=== PATIENT | female | born 1945 | race Caucasian/White ===

== ENCOUNTER → 2018-08-28 | Outpatient (CLI) | payer MEDICARE ==
--- NOTE | 2018-09-01 10:33 | MM ---
Reason for exam: screening (asymptomatic). Last mammogram was performed 1 year ago. History: Patient is postmenopausal and history of other cancer. Physical Findings: A clinical breast exam by your physician is recommended on an annual basis and results should be correlated with mammographic findings. MG 3D Screening Mammo W/Cad Bilateral CC and MLO view(s) were taken. Prior study comparison: August 20, 2017, bilateral MG 3d screening mammo w/cad. August 06, 2016, bilateral MG 3d screening mammo w/cad. There are scattered fibroglandular densities. No significant changes when compared with prior studies. ASSESSMENT: Benign, BI-RAD 2 RECOMMENDATION: Routine screening mammogram of both breasts in 1 year.
== END | disposition home or self-care (01) ==
LOC: RADMAMWWP 13:35
PROVIDERS: ATTEND Family Medicine
DX: Z12.31 Encounter for screening mammogram for malignant neoplasm of breast (principal)
CPT/HCPCS: 77063; 77067

== ENCOUNTER → 2019-09-07 | Outpatient (CLI) | payer MEDICARE ==
--- NOTE | 2019-09-08 04:25 | BD ---
EXAMINATION TYPE: Axial Bone Density DATE OF EXAM: 09/07/2019 COMPARISON: NONE CLINICAL HISTORY: 74-year-old female screening for osteoporosis Height: 61.5 IN Weight: 147 LBS RISK FACTORS HISTORY OF: Active: YES Diet low in dairy products/other sources of calcium: YES Postmenopausal woman: AGE 54 MEDICATIONS: Thyroid Medications: YES Which medication: LEVOTHYROXINE How Lon+ YEARS Additional Medications: BLOOD PRESSURE MEDS, STATIN,LEVOTHYROXINE, EXAM MEASUREMENTS: Bone mineral densitometry was performed using the [employer] System. Bone mineral density as measured about the Lumbar spine is: ----- L1-L4(G/cm2): 1.040 T Score Values are as follows: ----- L2: -1.4 ----- L3: -1.2 ----- L4: -1.3 ----- L1-L4: -1.2 Bone mineral density BASELINE Bone mineral density about the R hip (g/cm2): 0.869 Bone mineral density about the L hip (g/cm2): 0.826 T Score values are as follows: -----R Neck: -1.2 -----L Neck: -1.5 -----R Total: -1.1 -----L Total: -0.6 Bone mineral density BASELINE IMPRESSION: Osteopenia (T Score between -2.5 and -1). There is slightly increased risk of fracture and the patient may be considered for treatment. Re-Screen 2-5 years. NOTE: T-SCORE=SD OF THE YOUNG ADULT MEAN.
--- NOTE | 2019-09-08 11:19 | MM ---
Reason for exam: screening (asymptomatic). Last mammogram was performed 1 year ago. History: Patient is postmenopausal and history of other cancer. Physical Findings: A clinical breast exam by your physician is recommended on an annual basis and results should be correlated with mammographic findings. MG 3D Screening Mammo W/Cad Bilateral CC and MLO view(s) were taken. Prior study comparison: August 28, 2018, bilateral MG 3d screening mammo w/cad. August 20, 2017, bilateral MG 3d screening mammo w/cad. There are scattered fibroglandular densities. There is no discrete abnormality. No significant changes when compared with prior studies. ASSESSMENT: Negative, BI-RAD 1 RECOMMENDATION: Routine screening mammogram of both breasts in 1 year.
== END | disposition home or self-care (01) ==
LOC: RADMAMWWP 13:55
PROVIDERS: ATTEND Family Medicine
DX: Z12.31 Encounter for screening mammogram for malignant neoplasm of breast (principal); Z13.820 Encounter for screening for osteoporosis; M85.80 Other specified disorders of bone density and structure, unspecified site
CPT/HCPCS: 77063; 77067; 77080

== ENCOUNTER 2021-08-23 08:53 | Inpatient (IN) | payer MEDICARE ==
[2021-08-23] MEDS ORDERED: SODIUM CHLORIDE 0.9% 1,000 ML IV STA (09:03)
[2021-08-23] MEDS ORDERED: ONDANSETRON 4 MG/2 ML VIAL IVP STA (09:03)
[2021-08-23] MEDS ORDERED: MORPHINE SULFATE 4 MG/ML SYRINGE IV STA (09:03)
[2021-08-23 09:49] LABS: Basophils # (A) 0.1 k/uL (0-0.2); Basophils % (A) 0 %; Eosinophils # (A) 0.2 k/uL (0-0.7); Eosinophils % (A) 1 %; HGB 13.9 gm/dL (11.4-16.0); Lymphocytes # (A) 2.8 k/uL (1.0-4.8); Lymphocytes % (A) 16 %; MCH 28.8 pg (25.0-35.0); MCHC 32.3 g/dL (31.0-37.0); MCV 89.3 fL (80.0-100.0); Mean Platelet Volume 7.9; Monocytes # (A) 0.6 k/uL (0-1.0); Monocytes % (A) 3 %; Neutrophils # (A) 13.5 k/uL (1.3-7.7); Neutrophils % (A) 78 %; Platelet Count 328 k/uL (150-450); RBC 4.81 m/uL (3.80-5.40); RDW 13.7 % (11.5-15.5); WBC 17.2 k/uL (3.8-10.6)
[2021-08-23 10:04] LABS: Albumin 4.5 g/dL (3.5-5.0); Calcium 9.6 mg/dL (8.4-10.2); Total Bilirubin 0.7 mg/dL (0.2-1.3); Total Protein 7.8 g/dL (6.3-8.2)
[2021-08-23 10:33] LABS: Appearance,Urine Cloudy (Clear); Bacteria,Urine Rare /hpf; Bilirubin,Urine Negative (Negative); Blood,Urine Negative (Negative); Color,Urine Yellow; Glucose,Urine (UA) Negative (Negative); Hyaline Casts,Urine 4 /lpf (0-2); Ketones,Urine Negative (Negative); Leukocyte Esterase,Urine Large (Negative); Mucus,Urine Occasional /hpf; Nitrite,Urine Negative (Negative); PH, Urine 5.5 (5.0-8.0); Protein,Urine Negative (Negative); RBC,Urine 4 /hpf (0-5); Specific Gravity,Urine 1.013 (1.001-1.035); Squamous Epithelial Cell,Urine 8 /hpf (0-4); Urobilinogen,Urine <2.0 mg/dL (<2.0); WBC,Urine 9 /hpf (0-5)
--- NOTE | 2021-08-23 11:29 | CT ---
EXAMINATION TYPE: CT abdomen pelvis w con DATE OF EXAM: 08/23/2021 COMPARISON: None HISTORY: Pelvic pain with bowel changes. CT DLP: 856.5 mGycm Automated exposure control for dose reduction was used. TECHNIQUE: Helical acquisition of images from the lung bases through the pelvis have been completed. CONTRAST: Performed without Oral Contrast and with IV Contrast, patient injected with 100 mL of Isovue 300. FINDINGS: There is a hiatal hernia present. LUNG BASES: No significant abnormality is appreciated. AORTA: No significant abnormality is appreciated. LIVER/GB: Liver shows low attenuation likely due to hepatic steatosis, gallbladder is normal PANCREAS: Calcifications at the level of the head of the pancreas are scattered, no evident pancreati c mass SPLEEN: No significant abnormality is seen. ADRENALS: No significant abnormality is seen. KIDNEYS: No significant abnormality is seen. REPRODUCTIVE ORGANS: No significant abnormality is seen BOWEL: There is inflammatory change adjacent to the sigmoid colon, Miladis mesentery appearance axial image 59 in the left lower quadrant. Within the lower abdomen there is low attenuation present, suspe ct the cecum is towards the midline, there is some questionable abnormal fluid attenuation associated with the cecum, there is thickening of the rectosigmoid colon. Fluid attenuation also present within the colon. The appendix is thought to be in the left lower quadrant due to the abnormal position of the cecum, the appendix is thickened measuring approximately 12 mm, there is luminal focus of high at tenuation at the tip possibly representing an appendicolith probable appendicolith also noted at the base of the appendix, coronal image #39, axial image #62. FREE AIR: No Free Air visible. ASCITES: None visible. PELVIC ADENOPATHY: None visualized. RETROPERITONEAL ADENOPATHY: No Retroperitoneal Adenopathy visible. URINARY BLADDER: No significant abnormality is seen. OSSEOUS STRUCTURES: No significant abnormality is seen. IMPRESSION: FINDINGS CONSISTENT WITH APPENDICITIS WITHIN THE LEFT LOWER QUADRANT WITH SECONDARY INFLAMMATORY MEHTA GES LIKELY INVOLVING THE SIGMOID COLON, FLUID-FILLED CECUM IS SUSPECTED, POSSIBLE SECONDARY COLITIS. FINDINGS CONSISTENT WITH HEPATIC STEATOSIS, CHRONIC PANCREATITIS.
--- NOTE | 2021-08-23 11:49 | ED ---
Abdominal Pain HPI - General Chief Complaint: Abdominal Pain Stated Complaint: Abd pain Time Seen by Provider: 08/23/21 08:57 Source: patient, EMS, RN notes reviewed Mode of arrival: EMS Limitations: no limitations - History of Present Illness Initial Comments: Patient is a 76-year-old female that complaining of abdominal pain for the past 2 days. She notes that it was acute onset. She no she isn't eating anything for the past 2 days. She notes that her last bowel movement was this morning. She notes that she has had no surgical history she still has her appendix and gallbladder and uterus. She notes that her pain is approximately a 10 out of 10 with no relief. She denied taking at home so far. She did note that she's felt nauseous. She denied any chest pain shortness of breath headache vomiting diarrhea constipation fever fatigue chills. - Related Data Home Medications Medication Instructions Recorded Confirmed Levothyroxine Sodium [Synthroid] 75 mg PO DAILY 06/29/16 08/23/21 Atorvastatin [Lipitor] 10 mg PO DAILY 08/23/21 08/23/21 lisinopriL [Zestril] 5 mg PO DAILY 08/23/21 08/23/21 Allergies Allergy/AdvReac Type Severity Reaction Status Date / Time No Known Allergies Allergy Verified 08/23/21 09:54 Review of Systems ROS Statement: Those systems with pertinent positive or pertinent negative responses have been documented in the HPI. ROS Other: All systems not noted in ROS Statement are negative. Past Medical History Past Medical History: Hypertension, Thyroid Disorder Additional Past Medical History / Comment(s): ENVIRONMENTAL ALLERGIES History of Any Multi-Drug Resistant Organisms: None Reported Past Surgical History: No Surgical Hx Reported Additional Past Surgical History / Comment(s): COLONOSCOPY, D and C Additional Past Anesthesia/Blood Transfusion Reaction / Comment(s): HAS NEVER HAD GENERAL ANESTHESIA. Past Psychological History: No Psychological Hx Reported Smoking Status: Former smoker Past Alcohol Use History: Rare Past Drug Use History: None Reported - Past Family History Mother Family Medical History: Dementia Father Family Medical History: Congestive Heart Failure (CHF), COPD, Diabetes Mellitus General Exam Limitations: no limitations General appearance: alert, in no apparent distress Head exam: Present: atraumatic, normocephalic, normal inspection Eye exam: Present: normal appearance, PERRL, EOMI. Absent: scleral icterus, conjunctival injection, periorbital swelling ENT exam: Present: normal exam, mucous membranes moist Neck exam: Present: normal inspection Respiratory exam: Present: normal lung sounds bilaterally. Absent: respiratory distress, wheezes, rales, rhonchi, stridor Cardiovascular Exam: Present: regular rate, normal rhythm, normal heart sounds. Absent: systolic murmur, diastolic murmur, rubs, gallop, clicks GI/Abdominal exam: Present: soft, tenderness (Right lower and upper quadrant), guarding, normal bowel sounds. Absent: distended, rebound Extremities exam: Present: normal inspection, full ROM, normal capillary refill. Absent: tenderness, pedal edema, joint swelling, calf tenderness Neurological exam: Present: alert, oriented X3 Psychiatric exam: Present: normal affect, normal mood Skin exam: Present: warm, dry, intact, normal color. Absent: rash Course Vital Signs 08/23/21 08/23/21 08:55 11:37 Temperature 98.0 F Pulse Rate 67 77 Respiratory 18 20 Rate Blood Pressure 120/67 119/56 O2 Sat by Pulse 95 94 L Oximetry Medical Decision Making - Medical Decision Making 76-year-old female complaining of abdominal pain 2 days. Labs, computed tomography scan of the abdomen and pelvis, 1 L normal saline, 4 mg of Zofran, 4 mg of morphine ordered. Labs shows elevated white count of 17.6. Computed tomography scan shows a 12 mm thickened appendix consistent with appendicitis. Dr. Granger was consulted and will except the admit for surgery. Case discussed with Dr. Daniels. - Lab Data Result diagrams: 08/23/21 09:33 08/23/21 09:33 Lab Results 08/23/21 08/23/21 08/23/21 Range/Units 09:33 09:33 09:33 WBC 17.2 H (3.8-10.6) k/uL RBC 4.81 (3.80-5.40) m/uL Hgb 13.9 (11.4-16.0) gm/dL Hct 43.0 (34.0-46.0) % MCV 89.3 (80.0-100.0) fL MCH 28.8 (25.0-35.0) pg MCHC 32.3 (31.0-37.0) g/dL RDW 13.7 (11.5-15.5) % Plt Count 328 (150-450) k/uL MPV 7.9 Neutrophils % 78 % Lymphocytes % 16 % Monocytes % 3 % Eosinophils % 1 % Basophils % 0 % Neutrophils # 13.5 H (1.3-7.7) k/uL Lymphocytes # 2.8 (1.0-4.8) k/uL Monocytes # 0.6 (0-1.0) k/uL Eosinophils # 0.2 (0-0.7) k/uL Basophils # 0.1 (0-0.2) k/uL Sodium 138 (137-145) mmol/L Potassium 4.0 (3.5-5.1) mmol/L Chloride 106 (98-107) mmol/L Carbon Dioxide 18 L (22-30) mmol/L Anion Gap 14 mmol/L BUN 12 (7-17) mg/dL Creatinine 0.89 (0.52-1.04) mg/dL Est GFR (CKD-EPI)AfAm 74 (>60 ml/min/1.73 sqM) Est GFR (CKD-EPI)NonAf 64 (>60 ml/min/1.73 sqM) Glucose 137 H (74-99) mg/dL Plasma Lactic Acid Galen 1.5 (0.7-2.0) mmol/L Calcium 9.6 (8.4-10.2) mg/dL Total Bilirubin 0.7 (0.2-1.3) mg/dL AST 26 (14-36) U/L ALT 22 (4-34) U/L Alkaline Phosphatase 125 (38-126) U/L Total Protein 7.8 (6.3-8.2) g/dL Albumin 4.5 (3.5-5.0) g/dL Amylase 82 (30-110) U/L Lipase 98 (23-300) U/L Urine Color Urine Appearance (Clear) Urine pH (5.0-8.0) Ur Specific [place] (1.001-1.035) Urine Protein (Negative) Urine Glucose (UA) (Negative) Urine Ketones (Negative) Urine Blood (Negative) Urine Nitrite (Negative) Urine Bilirubin (Negative) Urine Urobilinogen (<2.0) mg/dL Ur Leukocyte Esterase (Negative) Urine RBC (0-5) /hpf Urine WBC (0-5) /hpf Ur Squamous Epith Cells (0-4) /hpf Urine Bacteria (None) /hpf Hyaline Casts (0-2) /lpf Urine Mucus (None) /hpf 08/23/21 Range/Units 10:08 WBC (3.8-10.6) k/uL RBC (3.80-5.40) m/uL Hgb (11.4-16.0) gm/dL Hct (34.0-46.0) % MCV (80.0-100.0) fL MCH (25.0-35.0) pg MCHC (31.0-37.0) g/dL RDW (11.5-15.5) % Plt Count (150-450) k/uL MPV Neutrophils % % Lymphocytes % % Monocytes % % Eosinophils % % Basophils % % Neutrophils # (1.3-7.7) k/uL Lymphocytes # (1.0-4.8) k/uL Monocytes # (0-1.0) k/uL Eosinophils # (0-0.7) k/uL Basophils # (0-0.2) k/uL Sodium (137-145) mmol/L Potassium (3.5-5.1) mmol/L Chloride (98-107) mmol/L Carbon Dioxide (22-30) mmol/L Anion Gap mmol/L BUN (7-17) mg/dL Creatinine (0.52-1.04) mg/dL Est GFR (CKD-EPI)AfAm (>60 ml/min/1.73 sqM) Est GFR (CKD-EPI)NonAf (>60 ml/min/1.73 sqM) Glucose (74-99) mg/dL Plasma Lactic Acid [place] (0.7-2.0) mmol/L Calcium (8.4-10.2) mg/dL Total Bilirubin (0.2-1.3) mg/dL AST (14-36) U/L ALT (4-34) U/L Alkaline Phosphatase (38-126) U/L Total Protein (6.3-8.2) g/dL Albumin (3.5-5.0) g/dL Amylase (30-110) U/L Lipase (23-300) U/L Urine Color Yellow Urine Appearance Cloudy H (Clear) Urine pH 5.5 (5.0-8.0) Ur Specific [place] 1.013 (1.001-1.035) Urine Protein Negative (Negative) Urine Glucose (UA) Negative (Negative) Urine Ketones Negative (Negative) Urine Blood Negative (Negative) Urine Nitrite Negative (Negative) Urine Bilirubin Negative (Negative) Urine Urobilinogen <2.0 (<2.0) mg/dL Ur Leukocyte Esterase Large H (Negative) Urine RBC 4 (0-5) /hpf Urine WBC 9 H (0-5) /hpf Ur Squamous Epith Cells 8 H (0-4) /hpf Urine Bacteria Rare H (None) /hpf Hyaline Casts 4 H (0-2) /lpf Urine Mucus Occasional H (None) /hpf - Radiology Data Radiology results: report reviewed, image reviewed CT abdomen and pelvis: Findings consistent with appendicitis within the left lower quadrant with secondary inflammatory changes likely involving the sigmoid colon. Fluid-filled cecum is suspected. Possible secondary colitis. Findings consistent with hepatic steatosis chronic pancreatitis. Disposition Clinical Impression: Acute appendicitis Disposition: ADMITTED IP TO THIS [facility] Condition: Stable Is patient prescribed a controlled substance at d/c from ED?: No Referrals: Ariadna Burton III, MD [Primary Care Provider] - 1-2 days Time of Disposition: 11:48
[2021-08-23] MEDS ORDERED: NALOXONE 0.4 MG/ML 1 ML VIAL IV PRN ×2 (12:14→20:39)
[2021-08-23] MEDS: SODIUM CHLORIDE 0.9% 1,000 ML IV SCH ×2 (12:50→23:46)
[2021-08-23] MEDS: HYDROmorphone 1 MG/ML 1 ML SYRINGE IVP PRN ×2 (12:51→16:49)
[2021-08-23] MEDS: PIPERACILLIN-TAZOBACTAM 3.375 GM in SODIUM CHLORIDE 0.9% 100 ML IVPB SCH ×2 (13:06→23:46)
--- NOTE | 2021-08-23 13:44 | P.GSHP ---
History of Present Illness H&P Date: 08/23/21 CHIEF COMPLAINT: Right lower quadrant abdominal pain for 2 days. HISTORY OF PRESENT ILLNESS: The patient is a 76-year-old female who presents with 2-day history of periumbilical with right lower quadrant abdominal pain that is crampy dull ache in nature. No reports of prior abdominal pain. She states the intensity of the pain is moderate and she has poor appetite with nausea. She had a CT abdomen and pelvis consistent abnormal location of her appendix and appendicitis. PAST MEDICAL HISTORY: See list and reviewed PAST SURGICAL HISTORY: See list and reviewed CURRENT MEDICATIONS: See list and reviewed ALLERGIES: See list and reviewed SOCIAL HISTORY: See list and reviewed FAMILY HISTORY: See list and reviewed REVIEW OF ORGAN SYSTEMS: CONSTITUTIONAL: Present fever, no chills. HEENT: Denies any trouble with vision, hearing or nosebleeds. No difficulty swallowing. LYMPHATIC: The patient denies any lumps and bumps around the neck. ENDOCRINE: Has hypothyroidism. Denies any blood sugar glucose intolerance. RESPIRATORY: Denies shortness of breath including chronic cough. CARDIOVASCULAR: Denies history of chest pain with exertion. Has hypertension. GASTROINTESTINAL: Denies regurgitation of bile at night as well as intermittent nausea. No blood in stools. GENITOURINARY: Denies any blood in urine or increased urinary frequency. MUSCULOSKELETAL: Denies current joint arthritis. NEUROLOGIC: Denies any numbness or tingling along the distal extremities. No seizure disorders or headaches. PSYCHIATRIC: Denies any depression or suicidal ideation. HEMATOLOGIC: Denies any abnormal bleeding or bruising. PHYSICAL EXAMINATION: VITALS: Reviewed. GENERAL:Well developed female in no acute distress. Pleasant. HEENT: No sclera icterus. Extraocular movements grossly intact. Moist buccal mucosa. Head is atraumatic, normocephalic. Hears conversational speech. No nasal drainage. NECK: Supple without lymphadenopathy. No JV distention. CHEST: Non-labored respirations and equal bilateral excursions. CARDIOVASCULAR: Regular rate and rhythm. Palpable 2+ radial pulses. ABDOMEN: Soft, tender at the right lower quadrant. MUSCULOSKELETAL: No clubbing, cyanosis or edema. NEUROLOGIC: No focal or lateralizing signs. PSYCH: Appropriate affect. Alert and oriented to person, place and time. SKIN: Well perfused. Good skin turgor. LABS: Reviewed. White blood cell count elevated over 17,000. Creatinine within normal limits 0.89. STUDIES: CT of the abdomen and pelvis independently reviewed with cecum at the left lower quadrant and the appendix at the left lower quadrant. This is my independent interpretation. EKG: Abnormal with nonspecific T-wave abnormality. ASSESSMENT: 1. Right lower quadrant pain. 2. Appendicitis 3. Leukocytosis. PLAN: 1. I have discussed benefits and risks of robotic appendectomy. 2. Bilateral SCDs. 3. Antibiotics intravenous to address moderate leukocytosis 4. Patient's elevated risk with abnormal EKG and hypertensive heart disease Thank you very much for allowing me to participate in the care of your patient. Past Medical History Past Medical History: Hypertension, Thyroid Disorder Additional Past Medical History / Comment(s): ENVIRONMENTAL ALLERGIES History of Any Multi-Drug Resistant Organisms: None Reported Past Surgical History: No Surgical Hx Reported Additional Past Surgical History / Comment(s): COLONOSCOPY, D and C Additional Past Anesthesia/Blood Transfusion Reaction / Comment(s): HAS NEVER HAD GENERAL ANESTHESIA. Past Psychological History: No Psychological Hx Reported Smoking Status: Former smoker Past Alcohol Use History: Rare Past Drug Use History: None Reported - Past Family History Mother Family Medical History: Dementia Father Family Medical History: Congestive Heart Failure (CHF), COPD, Diabetes Mellitus Medications and Allergies Home Medications Medication Instructions Recorded Confirmed Type Levothyroxine Sodium [Synthroid] 75 mg PO DAILY 06/29/16 08/23/21 History Atorvastatin [Lipitor] 10 mg PO DAILY 08/23/21 08/23/21 History lisinopriL [Zestril] 5 mg PO DAILY 08/23/21 08/23/21 History Allergies Allergy/AdvReac Type Severity Reaction Status Date / Time No Known Allergies Allergy Verified 08/23/21 09:54 Surgical - Exam Vital Signs Temp Pulse Resp BP Pulse Ox 98.0 F 67 18 120/67 95 08/23/21 08:55 08/23/21 08:55 08/23/21 08:55 08/23/21 08:55 08/23/21 08:55 Results - Labs 08/23/21 09:33 08/23/21 09:33 Abnormal Lab Results - Last 24 Hours (Table) 08/23/21 08/23/21 08/23/21 Range/Units 09:33 09:33 10:08 WBC 17.2 H (3.8-10.6) k/uL Neutrophils # 13.5 H (1.3-7.7) k/uL Carbon Dioxide 18 L (22-30) mmol/L Glucose 137 H (74-99) mg/dL Urine Appearance Cloudy H (Clear) Ur Leukocyte Esterase Large H (Negative) Urine WBC 9 H (0-5) /hpf Ur Squamous Epith Cells 8 H (0-4) /hpf Urine Bacteria Rare H (None) /hpf Hyaline Casts 4 H (0-2) /lpf Urine Mucus Occasional H (None) /hpf Diabetes panel 08/23/21 Range/Units 09:33 Sodium 138 (137-145) mmol/L Potassium 4.0 (3.5-5.1) mmol/L Chloride 106 (98-107) mmol/L Carbon Dioxide 18 L (22-30) mmol/L BUN 12 (7-17) mg/dL Creatinine 0.89 (0.52-1.04) mg/dL Glucose 137 H (74-99) mg/dL Calcium 9.6 (8.4-10.2) mg/dL AST 26 (14-36) U/L ALT 22 (4-34) U/L Alkaline Phosphatase 125 (38-126) U/L Total Protein 7.8 (6.3-8.2) g/dL Albumin 4.5 (3.5-5.0) g/dL Calcium panel 08/23/21 Range/Units 09:33 Calcium 9.6 (8.4-10.2) mg/dL Albumin 4.5 (3.5-5.0) g/dL Pituitary panel 08/23/21 Range/Units 09:33 Sodium 138 (137-145) mmol/L Potassium 4.0 (3.5-5.1) mmol/L Chloride 106 (98-107) mmol/L Carbon Dioxide 18 L (22-30) mmol/L BUN 12 (7-17) mg/dL Creatinine 0.89 (0.52-1.04) mg/dL Glucose 137 H (74-99) mg/dL Calcium 9.6 (8.4-10.2) mg/dL Adrenal panel 08/23/21 Range/Units 09:33 Sodium 138 (137-145) mmol/L Potassium 4.0 (3.5-5.1) mmol/L Chloride 106 (98-107) mmol/L Carbon Dioxide 18 L (22-30) mmol/L BUN 12 (7-17) mg/dL Creatinine 0.89 (0.52-1.04) mg/dL Glucose 137 H (74-99) mg/dL Calcium 9.6 (8.4-10.2) mg/dL Total Bilirubin 0.7 (0.2-1.3) mg/dL AST 26 (14-36) U/L ALT 22 (4-34) U/L Alkaline Phosphatase 125 (38-126) U/L Total Protein 7.8 (6.3-8.2) g/dL Albumin 4.5 (3.5-5.0) g/dL Assessment and Plan (1) Hypertensive heart disease Current Visit: Yes Status: Acute Code(s): I11.9 - HYPERTENSIVE HEART DISEASE WITHOUT HEART FAILURE SNOMED Code(s): 20715695 (2) Acute appendicitis Current Visit: Yes Status: Acute Code(s): K35.80 - UNSPECIFIED ACUTE APPENDICITIS SNOMED Code(s): 29363024
[2021-08-23] MEDS: HEPARIN SODIUM,PORCINE/PF 5,000 UNIT/0.5 ML SYRINGE SQ SCH ×2 (13:48→23:46)
[2021-08-23] MEDS ORDERED: PHENYLEPHRINE-0.9% NACL SYG 1,000 MCG/10 ML SYRINGE ONE (19:23)
[2021-08-23] MEDS ORDERED: SUCCINYLCHOLINE CHLORIDE 100 MG/5 ML SYR IV ONE (19:23)
[2021-08-23] MEDS ORDERED: ceFAZolin 1,000 MG VIAL ONE (19:23)
[2021-08-23] MEDS ORDERED: ONDANSETRON 4 MG/2 ML VIAL ONE (19:23)
[2021-08-23] MEDS ORDERED: LIDOCAINE 1% INJ 10MG/ML (20 ML MDV) ONE (19:23)
[2021-08-23] MEDS ORDERED: PROPOFOL 10 MG/ML 20 ML VIAL IV ONE (19:23)
[2021-08-23] MEDS ORDERED: DEXAMETHASONE SOD PHOSPHATE 10 MG/ML 1 ML VIAL ONE (19:23)
[2021-08-23] MEDS ORDERED: NEOSTIGMINE 1 MG/ML 10 ML VIAL ONE (19:23)
[2021-08-23] MEDS ORDERED: GLYCOPYRROLATE 0.2 MG/ML 2 ML VIAL ONE (19:23)
[2021-08-23] MEDS ORDERED: SODIUM CHLORIDE 0.9% 100 ML BAG ONE (19:23)
[2021-08-23] MEDS ORDERED: ROCURONIUM 10 MG/ML (5 ML VIAL) IV ONE (19:23)
[2021-08-23] MEDS ORDERED: fentaNYL (PF) 50 MCG/ML 2 ML AMP ONE (19:23)
[2021-08-23] MEDS ORDERED: IV FLUID CONTINUATION 1,000 ML IV ONE (19:33)
[2021-08-23] MEDS ORDERED: LIDOCAINE 1%-EPI 1:100,000 20 ML VIAL SQ ONE (19:53)
[2021-08-23] MEDS ORDERED: ACETAMINOPHEN IV (For NPO) 1,000 MG in EMPTY BAG 1 BAG IVPB ONE (20:39)
--- NOTE | 2021-08-23 20:43 | P.OP ---
Date of Procedure: 08/23/21 Description of Procedure: SURGEON: PATRICIA SANCHEZ MD Preoperative Diagnosis: 1. Acute appendicitis Postoperative Diagnosis: 1. Gangrenous ruptured appendicitis with appendiceal abscess Procedure(s) Performed: 1. Robotic-assisted daVinci Xi laparoscopic lysis of adhesions 2. Robotic-assisted daVinci Xi laparoscopic appendectomy with drainage of periappendiceal abscess 3. Placement of CANDY drain #19 right lower quadrant/pelvis 4. Peritoneal lavage 1000 mL normal saline Anesthesia: GETA, local Estimated Blood Loss (ml): 5 Pathology: other (appendix, aerobic and anerobic culture of peritoneal fluid from peritonitis) Condition: stable Disposition: floor Operative Findings: 1. Localized abscess over 20-mL drained right lower quadrant 2. Gangrenous ruptured purulent appendicitis including base of appendix 3. Abdomen irrigated with 1000-mL normal saline 4. CANDY drain placed at left lower quadrant of abscess pocket drained 5. Appendix resected at base 6. Staple line hemostatic INDICATIONS: The patient is a 76-year-old female who presents with acute appendicitis including fevers and peritonitis consistent with sepsis. Surgical intervention was described in detail. Patient requested robotic-assisted technique. Benefits and risks, including infection, open surgery, and possibility for additional surgery was discussed at length. Informed consent was obtained. All questions of the patient and family were answered. DESCRIPTION: The patient was transferred to the operating room and placed in supine position. The patient had previously voided. The abdomen was then prepped and draped in standard sterile fashion as Ioban was placed along the abdomen to minimize any contamination of skin floor. After a timeout protocol was performed, attention was then brought to the left upper quadrant whereby a 0 degree 5 mm laparoscopic trocar entry was performed. The abdominal cavity was entered and insufflated to 15 mmHg pressure, which was tolerated well. Diagnostic laparoscopy demonstrated no injury to bowel, viscera or mesentery. Adhesions were confirmed of the right lower quadrant of omentum, small bowel to the abdominal wall. Localized abscess was found. Next a robotic 12-mm trocar was placed along the left upper quadrant after exchanging the 5 mm trocar. A 8 mm port was placed along the left lower quadrant and another 8-mm port left lateral abdominal wall. Ports were placed 10 cm apart from each other including 15-20 cm away from the target anatomy of the right pelvis. The patient was then placed in Trendelenburg position, at least 7 and right side up at least 7. The robotic da Jaylen XI system was primed and docked from the left side of the patient. Using atraumatic graspers and vessel sealer, the robotic system was docked and primed as described. Instruments were interchanged by the diet assistant including graspers, robotic stapler and vessel sealer. Next, attention was brought to identify the cecum. A systematic view within the abdominal cavity was started with the small bowel which was remarkable for diffuse fibrinous exudate throughout the pelvis. The base of the cecum was with inflammation and ischemia. The appendix was ruptured near the base with moderate dissection performed. The abscess of 20-mL was aspirated from the abdomen. Extensive lysis of adhesions over 1 hour was used to dissect the appendix from surrounding tissues including along the base of the cecum. Multiple 45 mm blue/green robotic staple loads were fired along the base of the appendix and incorporating the superior portion of the cecum avoiding the ileocecal valve. The staple line was hemostatic and viable. Hemostasis was checked prior to undocking the robot. The abdomen was irrigated with 2000 mL normal saline to the aspirant was clear. At the right pelvis, a suspended round ligament creating an internal hernia was identified and divided. The robot was undocked. I re-scrubbed into the case. A round #19 drain was placed via the left lower quadrant port and positioned at the right lower quadrant and pelvis. A drain stitch 2-0 nylon was placed with the bulb attached separately. The specimen was removed from the abdominal cavity with an Endo Catch bag through the 12 mm trocar at the left upper quadrant. All instruments and pneumoperitoneum were evacuated from the abdominal cavity. Local anesthetic was infiltrated to all wounds for postop analgesia. All incisions were also cleansed with diluted hydrogen peroxide. An Optifoam surgical dressing was placed over all port sites including drain site as she has elevated risk for infection. The patient had tolerated the procedure well. The patient was extubated successfully. The patient was transferred to the postanesthesia care unit in stable condition.
[2021-08-23] MEDS ORDERED: HYDROmorphone 0.5 MG/0.5 ML SYRINGE IVP ONE ×3 (20:46→21:07)
[2021-08-23] MEDS: ONDANSETRON 4 MG/2 ML VIAL IVP PRN (20:58)
[2021-08-23] MEDS: KETOROLAC 15 MG/ML 1 ML VIAL IVP SCH (20:58)
[2021-08-23 22:11] LABS: HCT 35.9 % (34.0-46.0); HGB 11.4 gm/dL (11.4-16.0); MCH 29.1 pg (25.0-35.0); MCHC 31.8 g/dL (31.0-37.0); MCV 91.5 fL (80.0-100.0); Mean Platelet Volume 7.5; Platelet Count 246 k/uL (150-450); RBC 3.92 m/uL (3.80-5.40); RDW 13.7 % (11.5-15.5); WBC 10.6 k/uL (3.8-10.6)
[2021-08-24] MEDS: ACETAMINOPHEN TAB 325 MG TAB PO SCH ×4 (00:47→17:07)
[2021-08-24] MEDS: PIPERACILLIN-TAZOBACTAM 3.375 GM in SODIUM CHLORIDE 0.9% 100 ML IVPB SCH ×3 (03:56→20:55)
[2021-08-24] MEDS: SODIUM CHLORIDE 0.9% 1,000 ML IV SCH ×3 (03:59→19:29)
[2021-08-24] MEDS: KETOROLAC 15 MG/ML 1 ML VIAL IVP SCH ×3 (05:37→17:07)
[2021-08-24 06:51] LABS: Basophils % (A) 0 %; Eosinophils % (A) 0 %; HCT 39.2 % (34.0-46.0); HGB 12.3 gm/dL (11.4-16.0); Lymphocytes % (A) 6 %; MCHC 31.3 g/dL (31.0-37.0); MCV 92.8 fL (80.0-100.0); Mean Platelet Volume 8.3; Monocytes # (A) 0.4 k/uL (0-1.0); Monocytes % (A) 2 %; Neutrophils # (A) 14.8 k/uL (1.3-7.7); Neutrophils % (A) 91 %; Platelet Count 248 k/uL (150-450); RBC 4.23 m/uL (3.80-5.40); RDW 13.9 % (11.5-15.5); WBC 16.3 k/uL (3.8-10.6)
[2021-08-24 07:05] LABS: ALT 16 U/L (4-34); AST 24 U/L (14-36); African American GFR (CKD) 66 (>60 ml/min/1.73 sqM); Albumin 3.5 g/dL (3.5-5.0); Albumin/Globulin Ratio 1.3; Alkaline Phosphatase 86 U/L (38-126); Anion Gap 12 mmol/L; Blood Urea Nitrogen 12 mg/dL (7-17); Calcium 8.2 mg/dL (8.4-10.2); Carbon Dioxide 19 mmol/L (22-30); Chloride 110 mmol/L (98-107); Globulin 2.8 g/dL; Glucose 125 mg/dL (74-99); Non-African American GFR(CKD) 57 (>60 ml/min/1.73 sqM); Potassium 3.8 mmol/L (3.5-5.1); Sodium 141 mmol/L (137-145); Total Bilirubin 0.5 mg/dL (0.2-1.3); Total Protein 6.3 g/dL (6.3-8.2)
[2021-08-24] MEDS: HEPARIN SODIUM,PORCINE/PF 5,000 UNIT/0.5 ML SYRINGE SQ SCH ×2 (08:28→20:55)
--- NOTE | 2021-08-24 12:32 | P.PN ---
Subjective Progress Note Date: 08/24/21 CHIEF COMPLAINT: Abdominal pain HISTORY OF PRESENT ILLNESS: The patient is a 76-year-old female who presents with acute appendicitis including fevers and peritonitis consistent with sepsis. Patient is status post Robotic-assisted daVinci Xi laparoscopic lysis of adhesions, Robotic-assisted daVinci Xi laparoscopic appendectomy with drainage of periappendiceal abscess, Placement of CANDY drain and Peritoneal lavage. Patient is lying in bed comfortably. She reports that her pain is controlled. She is tolerating diet. Denies any nausea or vomiting. Denies any flatus or bowel movement. Afebrile. WBC 16.3 hemoglobin 12.3 patient's oxygen saturation does drop down into the 70s when taken off of her oxygen. She does report a prior history of smoking. She denies any diagnosis of COPD. She denies taking any Inhalers at home. PHYSICAL EXAM: VITAL SIGNS: Reviewed GENERAL: Well-developed in no acute distress. HEENT: No sclera icterus. Extraocular movements grossly intact. Moist buccal mucosa. Head is atraumatic, normocephalic. Hears conversational speech. No nasal drainage. NECK: Supple without lymphadenopathy. CHEST: Non-labored respirations and equal bilateral excursions. CARDIOVASCULAR: Palpable 2+ radial pulses. ABDOMEN: Soft. Nondistended. Incision sites clean dry and intact. CANDY drain with serous fluid. 100 mL output through the night MUSCULOSKELETAL: No clubbing or cyanosis. NEUROLOGIC: No focal or lateralizing signs. Cranial nerves II through XII grossly intact. PSYCH: Appropriate affect. Alert and oriented to person, place and time. SKIN: Well perfused. Good skin turgor. ASSESSMENT: 1. Gangrenous ruptured appendicitis with appendiceal abscess PLAN: -Continue regular diet -Encouraged patient to use incentive spirometer -Encouraged patient to do deep breathing exercises -Encouraged patient ambulates -Continue pain medication as needed -Continue IV fluids -Continue IV antibiotics -Follow up on culture results Physician Dental Biller note has been reviewed by physician. Signing provider agrees with the documented findings, assessment, and plan of care. Objective - Vital Signs Vital signs: Vital Signs Temp 97.9 F 08/24/21 07:00 Pulse 69 08/24/21 07:00 Resp 16 08/24/21 07:00 BP 91/51 08/24/21 07:00 Pulse Ox 92 L 08/24/21 07:00 Intake & Output 08/23/21 08/24/21 08/24/21 18:59 06:59 18:59 Intake Total 1100 118 Output Total 105 Balance 995 118 Weight 66.224 kg Intake: IV 1100 Oral 118 Output: Drainage 100 Lower Anterior Abdomen 100 Estimated Blood Loss 5 Other: Voiding Method Toilet Toilet Toilet # Voids 1 3 - Labs CBC & Chem 7: 08/24/21 06:07 08/24/21 06:07 Labs: Abnormal Lab Results - Last 24 Hours (Table) 08/24/21 08/24/21 Range/Units 06:07 06:07 WBC 16.3 H (3.8-10.6) k/uL Neutrophils # 14.8 H (1.3-7.7) k/uL Chloride 110 H (98-107) mmol/L Carbon Dioxide 19 L (22-30) mmol/L Glucose 125 H (74-99) mg/dL Calcium 8.2 L (8.4-10.2) mg/dL Microbiology - Last 24 Hours (Table) 08/23/21 20:31 Wound Culture - Preliminary Appendix 08/23/21 20:31 Anaerobic Culture - Preliminary Appendix
[2021-08-24] MEDS: PANTOPRAZOLE 40 MG TABLET PO SCH (16:12)
[2021-08-24] MEDS: HYDROmorphone 1 MG/ML 1 ML SYRINGE IVP PRN (20:56)
[2021-08-25] MEDS: ACETAMINOPHEN TAB 325 MG TAB PO SCH ×4 (00:22→18:28)
[2021-08-25] MEDS: KETOROLAC 15 MG/ML 1 ML VIAL IVP SCH ×4 (00:23→17:16)
[2021-08-25] MEDS: PIPERACILLIN-TAZOBACTAM 3.375 GM in SODIUM CHLORIDE 0.9% 100 ML IVPB SCH ×3 (03:05→20:32)
[2021-08-25] MEDS: SODIUM CHLORIDE 0.9% 1,000 ML IV SCH (03:05)
[2021-08-25] MEDS: HEPARIN SODIUM,PORCINE/PF 5,000 UNIT/0.5 ML SYRINGE SQ SCH ×2 (07:32→20:32)
[2021-08-25] MEDS: PANTOPRAZOLE 40 MG TABLET PO SCH (07:32)
[2021-08-25 09:07] LABS: African American GFR (CKD) 60 (>60 ml/min/1.73 sqM); Anion Gap 10 mmol/L; Blood Urea Nitrogen 17 mg/dL (7-17); Calcium 8.7 mg/dL (8.4-10.2); Carbon Dioxide 16 mmol/L (22-30); Chloride 112 mmol/L (98-107); Glucose 106 mg/dL (74-99); Non-African American GFR(CKD) 52 (>60 ml/min/1.73 sqM); Sodium 138 mmol/L (137-145)
--- NOTE | 2021-08-25 09:17 | XR ---
EXAMINATION TYPE: XR chest 2V DATE OF EXAM: 08/25/2021 COMPARISON: NONE HISTORY: Hypoxia TECHNIQUE: Frontal and lateral views of the chest are obtained. FINDINGS: Bibasilar increased density is present, hemidiaphragms are obscured. There is blunting of the costophrenic angles. Heart is likely enlarged. No evident pneumothorax. Interstitium is increased . IMPRESSION: Correlate for possible congestive heart failure with basilar effusions versus atelectasi s or edema, pneumonia not excluded. Follow-up recommended.
[2021-08-25 09:20] LABS: Potassium 3.9 mmol/L (3.5-5.1)
[2021-08-25] MEDS: LEVOTHYROXINE 75 MCG TAB PO SCH (09:24)
[2021-08-25] MEDS: ATORVASTATIN 10 MG TAB PO SCH (09:24)
[2021-08-25] MEDS: lisinopriL 5 MG TAB PO SCH (09:25)
[2021-08-25 10:45] LABS: Basophils # (A) 0.1 k/uL (0-0.2); Basophils % (A) 1 %; Eosinophils # (A) 0.1 k/uL (0-0.7); Eosinophils % (A) 1 %; HCT 35.2 % (34.0-46.0); HGB 11.4 gm/dL (11.4-16.0); Hypochromasia Marked; Lymphocytes # (A) 1.4 k/uL (1.0-4.8); Lymphocytes % (A) 9 %; MCH 31.4 pg (25.0-35.0); MCHC 32.3 g/dL (31.0-37.0); MCV 97.4 fL (80.0-100.0); Mean Platelet Volume 9.4; Monocytes # (A) 0.3 k/uL (0-1.0); Monocytes % (A) 2 %; Neutrophils # (A) 13.3 k/uL (1.3-7.7); Neutrophils % (A) 87 %; Platelet Count 201 k/uL (150-450); RBC 3.62 m/uL (3.80-5.40); RDW 14.2 % (11.5-15.5); WBC 15.4 k/uL (3.8-10.6)
[2021-08-25] MEDS: IPRATROPIUM-ALBUTEROL 3 ML NEB INHALATION SCH ×3 (12:31→19:22)
--- NOTE | 2021-08-25 12:33 | P.PN ---
Subjective Progress Note Date: 08/25/21 CHIEF COMPLAINT: Abdominal pain HISTORY OF PRESENT ILLNESS: The patient is a 76-year-old female who presents with acute appendicitis including fevers and peritonitis consistent with sepsis. Patient is status post Robotic-assisted daVinci Xi laparoscopic lysis of adhesions, Robotic-assisted daVinci Xi laparoscopic appendectomy with drainage of periappendiceal abscess, Placement of CANDY drain and Peritoneal lavage. Patient has been having shortness of breath especially after walking. Her IV fluids were hep-locked this morning. Her oxygen saturation has been low. With ambulating oxygen saturation was 81%. She is 90% on 4 L. Chest x-ray completed this morning correlate for possible congestive heart failure with basilar effusions versus atelectasis or edema, pneumonia not excluded. Afebrile. WBC is 15.4 hemoglobin 11.4 platelets 201 sodium 138 potassium 3.9 CO2 is 16 creatinine 1.05. Patient denies any significant cough. Patient reports her abdominal pain is controlled. Denies any nausea vomiting. She is having flatus and bowel movement. CANDY drain with 40 mL of purulent drainage. Wound culture growing gram-negative bacilli PHYSICAL EXAM: VITAL SIGNS: Reviewed GENERAL: Well-developed in no acute distress. HEENT: No sclera icterus. Extraocular movements grossly intact. Moist buccal mucosa. Head is atraumatic, normocephalic. Hears conversational speech. No nasal drainage. NECK: Supple without lymphadenopathy. CHEST: Non-labored respirations and equal bilateral excursions. CARDIOVASCULAR: Palpable 2+ radial pulses. ABDOMEN: Soft. Nondistended. Incision sites clean dry and intact. CANDY drain with serous fluid. 100 mL output through the night MUSCULOSKELETAL: No clubbing or cyanosis. NEUROLOGIC: No focal or lateralizing signs. Cranial nerves II through XII grossly intact. PSYCH: Appropriate affect. Alert and oriented to person, place and time. SKIN: Well perfused. Good skin turgor. ASSESSMENT: 1. Gangrenous ruptured appendicitis with appendiceal abscess 2. Fluid overload 3. Atelectasis PLAN: -Give 1 dose of IV Lasix 20 mg for fluid overload -Hep-Lock IV fluids -Add DuoNeb updraft treatments -Continue regular diet -Encouraged patient to use incentive spirometer and deep breathing exercises -Encouraged patient ambulates -Continue pain medication as needed -Continue IV antibiotics -Follow up on culture results Physician Pediatric Anesthesiologist note has been reviewed by physician. Signing provider agrees with the documented findings, assessment, and plan of care. Objective - Vital Signs Vital signs: Vital Signs Temp 98 F 08/25/21 07:45 Pulse 112 H 08/25/21 10:22 Resp 17 08/25/21 07:45 BP 118/71 08/25/21 07:45 Pulse Ox 87 L 08/25/21 10:22 Intake & Output 08/24/21 08/25/21 08/25/21 18:59 06:59 18:59 Intake Total 236 100 Output Total 50 2 40 Balance 186 -2 60 Intake: Oral 236 100 Output: Drainage 50 40 Lower Anterior Abdomen 50 40 Stool 2 Other: Voiding Method Toilet Toilet Toilet # Voids 3 1 # Bowel Movements 1 - Labs CBC & Chem 7: 08/25/21 08:15 08/25/21 08:15 Labs: Abnormal Lab Results - Last 24 Hours (Table) 08/25/21 08/25/21 Range/Units 08:15 08:15 WBC 15.4 H (3.8-10.6) k/uL RBC 3.62 L (3.80-5.40) m/uL Neutrophils # 13.3 H (1.3-7.7) k/uL Chloride 112 H (98-107) mmol/L Carbon Dioxide 16 L (22-30) mmol/L Creatinine 1.05 H (0.52-1.04) mg/dL Glucose 106 H (74-99) mg/dL Microbiology - Last 24 Hours (Table) 08/23/21 20:31 Gram Stain - Preliminary Appendix Wound Culture - Preliminary Gram Neg Bacilli
[2021-08-25] MEDS ORDERED: FUROSEMIDE 10 MG/ML 2 ML VIAL IV ONE (13:00)
[2021-08-25] MEDS: metroNIDAZOLE-NS PMX 500 MG in SALINE 1 100ML.BAG IVPB SCH (17:39)
[2021-08-26] MEDS: ACETAMINOPHEN TAB 325 MG TAB PO SCH ×4 (00:36→17:50)
[2021-08-26] MEDS: metroNIDAZOLE-NS PMX 500 MG in SALINE 1 100ML.BAG IVPB SCH ×3 (00:36→17:52)
[2021-08-26] MEDS: PIPERACILLIN-TAZOBACTAM 3.375 GM in SODIUM CHLORIDE 0.9% 100 ML IVPB SCH ×3 (03:58→21:07)
[2021-08-26] MEDS: LEVOTHYROXINE 75 MCG TAB PO SCH (05:34)
[2021-08-26] MEDS: ATORVASTATIN 10 MG TAB PO SCH (08:18)
[2021-08-26] MEDS: HEPARIN SODIUM,PORCINE/PF 5,000 UNIT/0.5 ML SYRINGE SQ SCH ×2 (08:18→21:07)
[2021-08-26] MEDS: lisinopriL 5 MG TAB PO SCH (08:18)
[2021-08-26] MEDS: PANTOPRAZOLE 40 MG TABLET PO SCH (08:18)
[2021-08-26] MEDS: IPRATROPIUM-ALBUTEROL 3 ML NEB INHALATION SCH ×4 (09:00→20:04)
[2021-08-26 09:13] LABS: Basophils # (A) 0.05 X 10*3/uL (0.00-0.10); Basophils % (A) 0.4 %; Eosinophils # (A) 0.19 X 10*3/uL (0.04-0.35); Eosinophils % (A) 1.5 %; HCT 31.2 % (37.2-46.3); Lymphocytes # (A) 1.63 X 10*3/uL (0.90-5.00); Lymphocytes % (A) 13.1 %; MCHC 32.1 g/dL (32.0-37.0); MCV 87.4 fL (80.0-97.0); Mean Platelet Volume 11.2 fL (9.5-12.2); Monocytes # (A) 0.35 X 10*3/uL (0.20-1.00); Monocytes % (A) 2.8 %; Neutrophils # (A) 10.07 X 10*3/uL (1.80-7.70); Platelet Count 285 X 10*3/uL (140-440); RBC 3.57 X 10*6/uL (4.10-5.20); RDW 14.6 % (11.5-14.5); WBC 12.44 X 10*3/uL (4.50-10.00)
--- NOTE | 2021-08-26 09:45 | P.PN ---
Subjective Progress Note Date: 08/26/21 Principal diagnosis: Ruptured appendicitis Patient doing well today. Says her pain is improved. CANDY drain serosanguineous. White blood cell count improved at 12. No fevers. Tolerating diet. Objective - Vital Signs Vital signs: Vital Signs Temp 98.4 F 08/26/21 07:00 Pulse 64 08/26/21 07:00 Resp 16 08/26/21 07:00 BP 133/66 08/26/21 07:00 Pulse Ox 91 L 08/26/21 07:00 Intake & Output 08/25/21 08/26/21 08/26/21 18:59 06:59 18:59 Intake Total 500 Output Total 101 Balance 399 Intake: Oral 500 Output: Drainage 100 Lower Anterior Abdomen 100 Stool 1 Other: Voiding Method Toilet Toilet # Voids 1 2 - Exam Abdomen: Soft, nondistended, mild tenderness, dressings clean and dry, drain and placed - Labs CBC & Chem 7: 08/26/21 05:52 08/25/21 08:15 Labs: Abnormal Lab Results - Last 24 Hours (Table) 08/25/21 08/26/21 Range/Units 08:15 05:52 WBC 15.4 H 12.44 H (3.8-10.6) k/uL RBC 3.62 L 3.57 L (3.80-5.40) m/uL Hgb 10.0 L (12.0-15.0) g/dL Hct 31.2 L (37.2-46.3) % RDW 14.6 H (11.5-14.5) % Immature Gran # 0.15 H (0.00-0.04) X 10*3/uL Neutrophils # 13.3 H 10.07 H (1.3-7.7) k/uL Microbiology - Last 24 Hours (Table) 08/23/21 20:31 Gram Stain - Preliminary Appendix Wound Culture - Preliminary Gram Neg Bacilli Assessment and Plan (1) Acute appendicitis Narrative/Plan: Patient improving. We'll recheck labs. Patient very hopeful that she can be discharged tomorrow since she has work being done on her kitchen at 8 AM Saturday morning. If white blood cell count stable or improved and patient still doing well likely will discharge tomorrow. Continue antibiotics. Keep drain in place. Current Visit: Yes Status: Acute Code(s): K35.80 - UNSPECIFIED ACUTE APPENDICITIS SNOMED Code(s): 93184539
[2021-08-26 10:11] LABS: African American GFR (CKD) 65.1 (60.0-200.0); Anion Gap 14.2 mmol/L (4.00-12.00); BUN/Creat Ratio 11.82 Ratio (12.00-20.00); Blood Urea Nitrogen 11.7 mg/dL (9.0-27.0); Calcium 8.4 mg/dL (8.7-10.3); Carbon Dioxide 17.7 mmol/L (21.6-31.8); Non-African American GFR(CKD) 56.1 (60.0-200.0); Potassium 3.3 mmol/L (3.5-5.5)
[2021-08-27] MEDS: ACETAMINOPHEN TAB 325 MG TAB PO SCH ×4 (00:14→17:55)
[2021-08-27] MEDS: metroNIDAZOLE-NS PMX 500 MG in SALINE 1 100ML.BAG IVPB SCH (00:14)
[2021-08-27] MEDS: HYDROmorphone 1 MG/ML 1 ML SYRINGE IVP PRN ×2 (02:39→21:15)
[2021-08-27] MEDS: PIPERACILLIN-TAZOBACTAM 3.375 GM in SODIUM CHLORIDE 0.9% 100 ML IVPB SCH ×3 (04:33→21:11)
[2021-08-27] MEDS: LEVOTHYROXINE 75 MCG TAB PO SCH (05:52)
[2021-08-27] MEDS: IPRATROPIUM-ALBUTEROL 3 ML NEB INHALATION SCH ×4 (08:09→19:52)
[2021-08-27] MEDS ORDERED: PSEUDOEPHEDRINE 30 MG TAB PO PRN (08:11)
[2021-08-27] MEDS: metroNIDAZOLE 500 MG TAB PO SCH ×2 (08:13→16:14)
[2021-08-27] MEDS: ATORVASTATIN 10 MG TAB PO SCH (08:13)
[2021-08-27] MEDS: PANTOPRAZOLE 40 MG TABLET PO SCH (08:13)
[2021-08-27] MEDS: lisinopriL 5 MG TAB PO SCH (08:14)
[2021-08-27] MEDS: HEPARIN SODIUM,PORCINE/PF 5,000 UNIT/0.5 ML SYRINGE SQ SCH ×2 (08:15→21:11)
[2021-08-27 10:00] LABS: Basophils % (A) 0.8 %; Eosinophils # (A) 0.23 X 10*3/uL (0.04-0.35); Eosinophils % (A) 1.8 %; HCT 32.3 % (37.2-46.3); HGB 10.4 g/dL (12.0-15.0); Lymphocytes # (A) 1.85 X 10*3/uL (0.90-5.00); Lymphocytes % (A) 14.9 %; MCH 28.3 pg (27.0-32.0); MCHC 32.2 g/dL (32.0-37.0); Mean Platelet Volume 10.8 fL (9.5-12.2); Monocytes # (A) 0.39 X 10*3/uL (0.20-1.00); Monocytes % (A) 3.1 %; Neutrophils # (A) 9.53 X 10*3/uL (1.80-7.70); Neutrophils % (A) 76.7 %; Platelet Count 337 X 10*3/uL (140-440); RBC 3.67 X 10*6/uL (4.10-5.20); RDW 14.6 % (11.5-14.5); WBC 12.44 X 10*3/uL (4.50-10.00)
--- NOTE | 2021-08-27 10:41 | P.PN ---
Subjective Progress Note Date: 08/27/21 Principal diagnosis: Ruptured appendicitis Patient says she is having some sinus issues today. Pain is improved. Tolerating diet. She is afebrile. White blood cell count is a same at 12.4. CANDY serosanguineous. Objective - Vital Signs Vital signs: Vital Signs Temp 98.5 F 08/27/21 07:00 Pulse 61 08/27/21 08:00 Resp 16 08/27/21 08:00 BP 129/62 08/27/21 07:00 Pulse Ox 91 L 08/27/21 07:00 Intake & Output 08/26/21 08/27/21 08/27/21 19:59 06:59 18:59 Intake Total 118 Output Total 1 Balance 117 Intake: Oral 118 Output: Drainage Lower Anterior Abdomen Stool 1 Other: Voiding Method Toilet # Voids - Exam Abdomen: Soft, nondistended, mild incisional tenderness - Labs CBC & Chem 7: 08/27/21 05:33 08/26/21 05:52 Labs: Abnormal Lab Results - Last 24 Hours (Table) 08/27/21 Range/Units 05:33 WBC 12.44 H (4.50-10.00) X 10*3/uL RBC 3.67 L (4.10-5.20) X 10*6/uL Hgb 10.4 L (12.0-15.0) g/dL Hct 32.3 L (37.2-46.3) % RDW 14.6 H (11.5-14.5) % Absolute Nucleated RBC 0.02 H (0.00-0.00) X 10*3/uL Immature Gran # 0.34 H (0.00-0.04) X 10*3/uL Neutrophils # 9.53 H (1.80-7.70) X 10*3/uL NRBC/100 WBC Diff 0.2 H (0.0-0.0) /100 WBCS Microbiology - Last 24 Hours (Table) 08/23/21 20:31 Anaerobic Culture - Final Appendix Anaerobic Gm Negative Bacilli 08/23/21 20:31 Gram Stain - Final Appendix Wound Culture - Final Klebsiella oxytoca Assessment and Plan (1) Acute appendicitis Narrative/Plan: Continue IV antibiotics. Recheck CBC tomorrow. Anticipate probable discharge tomorrow. Current Visit: Yes Status: Acute Code(s): K35.80 - UNSPECIFIED ACUTE APPENDICITIS SNOMED Code(s): 88545419
[2021-08-28] MEDS: ACETAMINOPHEN TAB 325 MG TAB PO SCH ×3 (00:11→12:14)
[2021-08-28] MEDS: metroNIDAZOLE 500 MG TAB PO SCH ×3 (00:11→17:36)
[2021-08-28 02:00] VITALS: RESP 17
[2021-08-28] MEDS: PIPERACILLIN-TAZOBACTAM 3.375 GM in SODIUM CHLORIDE 0.9% 100 ML IVPB SCH ×2 (04:30→13:03)
[2021-08-28] MEDS: LEVOTHYROXINE 75 MCG TAB PO SCH (06:16)
[2021-08-28] MEDS: ONDANSETRON 4 MG/2 ML VIAL IVP PRN (06:19)
[2021-08-28 07:25] LABS: Basophils # (A) 0.1 k/uL (0-0.2); Basophils % (A) 1 %; Eosinophils # (A) 0.3 k/uL (0-0.7); Eosinophils % (A) 3 %; HCT 34.6 % (34.0-46.0); HGB 11.3 gm/dL (11.4-16.0); Lymphocytes # (A) 1.5 k/uL (1.0-4.8); Lymphocytes % (A) 14 %; MCH 29.1 pg (25.0-35.0); MCHC 32.6 g/dL (31.0-37.0); Mean Platelet Volume 7.7; Monocytes # (A) 0.4 k/uL (0-1.0); Monocytes % (A) 3 %; Neutrophils # (A) 8.3 k/uL (1.3-7.7); Neutrophils % (A) 77 %; Platelet Count 377 k/uL (150-450); RBC 3.88 m/uL (3.80-5.40); WBC 10.8 k/uL (3.8-10.6)
[2021-08-28] MEDS: PANTOPRAZOLE 40 MG TABLET PO SCH (07:35)
[2021-08-28] MEDS: lisinopriL 5 MG TAB PO SCH (07:36)
[2021-08-28] MEDS: ATORVASTATIN 10 MG TAB PO SCH (07:36)
[2021-08-28] MEDS: HEPARIN SODIUM,PORCINE/PF 5,000 UNIT/0.5 ML SYRINGE SQ SCH (07:37)
[2021-08-28 07:42] LABS: MCV 89.3 fL (80.0-100.0)
[2021-08-28] MEDS: IPRATROPIUM-ALBUTEROL 3 ML NEB INHALATION SCH ×3 (08:52→16:41)
--- NOTE | 2021-08-28 09:39 | XR ---
EXAMINATION TYPE: XR chest 2V DATE OF EXAM: 08/28/2021 COMPARISON: 08/25/2021 TECHNIQUE: PA and lateral views submitted. HISTORY: Shortness of breath FINDINGS: Heart size is prominent bilateral infiltrate and pleural effusion. There is interstitial pattern with no pneumothorax. Atherosclerotic change aorta. Underlying COPD suspected. IMPRESSION: 1. Correlate for CHF. Findings stable.
[2021-08-28] MEDS ORDERED: FUROSEMIDE 10 MG/ML 2 ML VIAL IV STA (11:47)
--- NOTE | 2021-08-28 12:46 | P.DS ---
Providers Date of admission: 08/23/21 20:39 Attending physician: Janine Granger Consults: 08/23/21 11:38 Consult Physician Routine Consulting Provider: [facility] Consult Reason/Comments: Anesthesia Care Do you want consulting provider notified?: Yes 08/27/21 18:31 Consult Physician Routine Consulting Provider: James Vieyra Consult Reason/Comments: Antibiotic management Do you want consulting provider notified?: Yes, Notify in am 08/28/21 09:18 Consult Physician Urgent Consulting Provider: Sejal Torres Consult Reason/Comments: CHF and COPD Do you want consulting provider notified?: Yes Primary care physician: Ariadna Gonzalez [facility] Course: Discharge diagnosis: Ruptured appendicitis with appendiceal abscess status post robotic-assisted da Jaylen laparoscopic lysis of adhesions, appendectomy with drainage of periappendiceal abscess This is a 76-year-old female who presented with acute appendicitis including fevers and peritonitis consistent with sepsis. She is status post robotic- assisted da Jaylen Xi for scopic lysis of adhesions, robotic-assisted da Jaylen Xi laparoscopic appendectomy with drainage of periappendiceal abcess with placement of peritoneal lavage. The patient has had some low oxygen saturations and has been on 3 L of nasal cannula with saturations between 90 and 94%. Chest x-ray was ordered which showed bilateral infiltrate and pleural effusion, likely related to fluid overload. IV Lasix ordered. Overall patient looks well she's using her incentive spirometer with oxygen saturation up to 97 and 99% on room air. She has minimal serosanguineous drainage from CANDY drain. Pain is well tolerable. She has had several bowel movements. Denies any nausea or vomiting. She's been afebrile. Infectious disease was consulted and agree with Cipro and Flagyl for outpatient antibiotics 10 days. Patient instructed to follow-up with primary care provider in the next 1-3 days to reevaluate oxygen status. The impression and plan of care has been dictated as directed. Dr. Granger I performed a history and examination of this patient, discussed the same with the dictator. I agree with the dictator's note ,documented as a scribe. Any additional findings or plans will be noted. Procedures: Robotic-assisted da Jaylen Xi laparoscopic lysis of adhesions Robotic-assisted da Jaylen Xi laparoscopic appendectomy with drainage of periappendiceal abscess Placement of CANDY drain Patient Condition at Discharge: Stable Plan - Discharge Summary New Discharge Prescriptions: New metroNIDAZOLE [Flagyl] 500 mg PO TID #30 tab Acetaminophen [Tylenol] 650 mg PO Q4H #30 tab Ciprofloxacin HCl [Cipro] 500 mg PO Q12HR #20 tablet Simethicone [Gas-X] 125 mg PO AC-TID PRN #20 capsule PRN Reason: Pain Ibuprofen [Motrin] 600 mg PO Q8HR PRN #30 tab PRN Reason: Pain Continue Levothyroxine Sodium [Synthroid] 75 mg PO DAILY Atorvastatin [Lipitor] 10 mg PO DAILY lisinopriL [Zestril] 5 mg PO DAILY Discharge Medication List Levothyroxine Sodium [Synthroid] 75 mg PO DAILY 06/29/16 [History] Atorvastatin [Lipitor] 10 mg PO DAILY 08/23/21 [History] lisinopriL [Zestril] 5 mg PO DAILY 08/23/21 [History] Acetaminophen [Tylenol] 650 mg PO Q4H #30 tab 08/25/21 [Rx] Ciprofloxacin HCl [Cipro] 500 mg PO Q12HR #20 tablet 08/25/21 [Rx] Ibuprofen [Motrin] 600 mg PO Q8HR PRN #30 tab 08/25/21 [Rx] Simethicone [Gas-X] 125 mg PO AC-TID PRN #20 capsule 08/25/21 [Rx] metroNIDAZOLE [Flagyl] 500 mg PO TID #30 tab 08/25/21 [Rx] Follow up Appointment(s)/Referral(s): Ariadna Burton III, MD [Primary Care Provider] - 1-2 days Janine Granger MD [STAFF PHYSICIAN] - 09/05/21 Patient Instructions/Handouts: Appendicitis (GEN), Zoran-Guadalupe Drain Care (DC), Acute Abdominal Pain in Children (GEN) Activity/Diet/Wound Care/Special Instructions: Using antibacterial soap. No lifting over 10 pounds 2 weeks, Sep 06February shower. (KEEP CANDY site dry!) No bathtub soaks for 2 weeks, Sep 06 Use ice along incisions for today to prevent swelling. Take tylenol, aleve/ibuprofen, simethicone scheduled for 3 days for best pain relief Discharge Disposition: HOME SELF-CARE
[2021-08-28 15:30] VITALS: BP 144/67; TEMP 98.1
--- NOTE | 2021-08-28 17:24 | P.PN ---
Progress Note - Text Progress Note Date: 08/28/21 Patient reports she feels well after being notified by nurse about oxygen saturation, "I outran my nurse while walking and feel fine." Patient encouraged to use incentive spirometer at home and follow up with PCP. Return to the ER reiterated for any worsening condition.
[2021-08-28 18:14] VITALS: PULSE 98
== END 2021-08-28 17:49 | disposition home or self-care (01) | DRG 853 ==
LOC: EC 08:53 → 6NMEDSUR 11:45 → OBSVTOIN 20:39 → INTOOBSV 08-24 11:43
PROVIDERS: ADMIT Surgery Plastic and Reconstructive Surgery; ATTEND Surgery Plastic and Reconstructive Surgery
PROC: 0DNW4ZZ Release Peritoneum, Percutaneous Endoscopic Approach (ICD-10-PCS; 2021-08-23)
PROC: 0W9G40Z Drainage of Peritoneal Cavity with Drainage Device, Percutaneous Endoscopic Approach (ICD-10-PCS; 2021-08-23)
PROC: 3E1M38Z Irrigation of Peritoneal Cavity using Irrigating Substance, Percutaneous Approach (ICD-10-PCS; 2021-08-23)
PROC: 8E0W4CZ Robotic Assisted Procedure of Trunk Region, Percutaneous Endoscopic Approach (ICD-10-PCS; 2021-08-23)
PROC: 0DTJ4ZZ Resection of Appendix, Percutaneous Endoscopic Approach (ICD-10-PCS; principal; 2021-08-23 08:00)
DX: A41.9 Sepsis, unspecified organism (principal); K35.33 Acute appendicitis with perforation, localized peritonitis, and gangrene, with abscess; J98.11 Atelectasis; K86.1 Other chronic pancreatitis; I50.9 Heart failure, unspecified; I11.0 Hypertensive heart disease with heart failure; J44.9 Chronic obstructive pulmonary disease, unspecified; K46.9 Unspecified abdominal hernia without obstruction or gangrene; K66.0 Peritoneal adhesions (postprocedural) (postinfection); Z20.822 Contact with and (suspected) exposure to COVID-19; Z79.899 Other long term (current) drug therapy; Z82.49 Family history of ischemic heart disease and other diseases of the circulatory system; Z82.5 Family history of asthma and other chronic lower respiratory diseases; Z83.3 Family history of diabetes mellitus; Z87.891 Personal history of nicotine dependence; E87.70 Fluid overload, unspecified
CPT/HCPCS: 36415; 71046; 74177; 80048; 80053; 81001; 82150; 83605; 83690; 85025; 85027; 87070; 87075; 87077; 87186; 87205; 87635; 88304; 93005; 94640; 94760; 96361; 96374; 96375; 99285

== ENCOUNTER → 2021-09-02 | Outpatient (CLI) | payer MEDICARE ==
--- NOTE | 2021-09-03 13:35 | XR ---
EXAMINATION TYPE: XR chest 2V DATE OF EXAM: 09/02/2021 COMPARISON: 08/28/2021 INDICATION: Recent hospital stay for ruptured appendix, abnormal lung auscultation TECHNIQUE: Frontal and lateral views of the chest are obtained. FINDINGS: The heart size is normal. The pulmonary vasculature is normal. Small right pleural effusion is present. Findings are improved from comparison. Previous left pleural effusion is largely resolved.. IMPRESSION: 1. Residual right pleural effusion. Previous left pleural effusion appears resolved. Continued follow -up can be performed.
== END | disposition home or self-care (01) ==
LOC: RADXRMAIN 10:57
PROVIDERS: ATTEND Nurse Practitioner Family
DX: J90 Pleural effusion, not elsewhere classified (principal); Z90.89 Acquired absence of other organs
CPT/HCPCS: 71046

== ENCOUNTER → 2021-10-03 | Outpatient (CLI) | payer MEDICARE ==
--- NOTE | 2021-10-04 09:37 | MM ---
Reason for exam: screening (asymptomatic). Last mammogram was performed 2 years and 1 month ago. History: Patient is postmenopausal and history of other cancer. Physical Findings: A clinical breast exam by your physician is recommended on an annual basis and results should be correlated with mammographic findings. MG 3D Screening Mammo W/Cad Bilateral CC and MLO view(s) were taken. Prior study comparison: September 07, 2019, bilateral MG 3d screening mammo w/cad. August 28, 2018, bilateral MG 3d screening mammo w/cad. The breast tissue is extremely dense which could obscure a lesion on mammography. Benign appearing bilateral calcifications. There is chronic nodularity bilaterally. ASSESSMENT: Benign, BI-RAD 2 RECOMMENDATION: Routine screening mammogram of both breasts in 1 year.
== END | disposition home or self-care (01) ==
LOC: RADMAMWWP 13:17
PROVIDERS: ATTEND Family Medicine
DX: Z12.31 Encounter for screening mammogram for malignant neoplasm of breast (principal)
CPT/HCPCS: 77063; 77067

== ENCOUNTER → 2022-10-11 | Outpatient (CLI) | payer MEDICARE ==
--- NOTE | 2022-10-12 09:40 | MM ---
Reason for Exam: Screening (asymptomatic). Last screening mammogram was performed 12 month(s) ago. Patient History: Menarche at age 13. First Full-Term at age 23. Postmenopausal. Other cancer at or over age 50. Risk Values: Angelia 5 year model risk: 1.7%. NCI Lifetime model risk: 3.8%. Prior Study Comparison: 08/28/2018 Bilateral Screening Mammogram, [facility]. 09/07/2019 Bilateral Screening Mammogram, [facility]. 10/03/2021 Bilateral Screening Mammogram, [facility]. Tissue Density: The breast tissue is heterogeneously dense. This may lower the sensitivity of mammography. Findings: Analyzed By CAD. A few scattered benign-appearing tiny round calcifications throughout the bilateral breasts are redemonstrated. There is no suspicious group of microcalcifications or new suspicious mass in either breast. Overall Assessment: Benign, BI-RAD 2 Management: Screening Mammogram of both breasts in 1 year. A clinical breast exam by your physician is recommended on an annual basis and results should be correlated with mammographic findings. Electronically signed and approved by: Johan Velazquez M.D.
== END | disposition home or self-care (01) ==
LOC: RADMAMWWP 12:45
PROVIDERS: ATTEND Family Medicine
DX: Z12.31 Encounter for screening mammogram for malignant neoplasm of breast (principal); Z78.0 Asymptomatic menopausal state
CPT/HCPCS: 77063; 77067

== ENCOUNTER → 2023-02-19 | Outpatient (CLI) | payer MEDICARE ==
--- NOTE | 2023-02-19 14:55 | CTL ---
EXAMINATION TYPE: CT Low Dose Lung DATE OF EXAM ORDERED: 02/19/2023 HISTORY: . Lung cancer screening CT DLP: [address] CTDI: 2.3 mGy Automated exposure control for dose reduction was used. SCREENING VISIT: COMPARISON: None TECHNIQUE: Low dose computed tomography scan was performed through the chest at 1 mm thick sections a nd reconstructed images in multiple planes at 1 mm and [address] DIAGNOSTIC QUALITY: Satisfactory FINDINGS: There is a 3 mm nodule right upper lobe axial image 22. There is a subpleural nodule measuring 2 mm l eft upper lobe axial image 22. There is a 3 mm nodule left upper lobe axial image 27 Mild emphysematous changes. There is linear changes left lower lobe most likely atelectasis or scarri ng. There is no pneumonia or pleural effusion. There is evidence of overt failure. Biapical pleural p ain. Atherosclerotic changes of the aorta with coronary artery calcification. Heart size normal. Hypertrophic and degenerative changes in the spine. IMPRESSION: 1. Sub-5 mm pulmonary nodules which have a benign appearance. 2. Mild emphysematous changes. 3. Coronary artery calcification. CT LUNG RAD AND CT CHEST RECOMMENDATION: Lung-Rad 2 Benign Appearance or Behavior: Continue annual sc reening with LDCT in 12 months.
== END | disposition home or self-care (01) ==
LOC: RADCTMAIN 12:41
PROVIDERS: ATTEND Family Medicine
DX: Z12.2 Encounter for screening for malignant neoplasm of respiratory organs (principal); J43.9 Emphysema, unspecified; I25.10 Atherosclerotic heart disease of native coronary artery without angina pectoris; R91.8 Other nonspecific abnormal finding of lung field; Z87.891 Personal history of nicotine dependence
CPT/HCPCS: 71271

== ENCOUNTER → 2023-11-21 | Outpatient (CLI) | payer MEDICARE ==
--- NOTE | 2023-11-22 08:38 | MM ---
Reason for Exam: Screening (asymptomatic). Last mammogram was performed 1 year(s) and 2 month(s) ago. Patient History: Menarche at age 13. First Full-Term at age 23. Postmenopausal. Other cancer at or over age 50. Risk Values: Angelia 5 year model risk: 1.7%. NCI Lifetime model risk: 3.5%. Prior Study Comparison: 09/07/2019 Bilateral Screening Mammogram, [facility]. 10/03/2021 Bilateral Screening Mammogram, [facility]. 10/11/2022 Bilateral MG 3D screening mammo w/cad, [facility]. Tissue Density: The breast tissue is heterogeneously dense. This may lower the sensitivity of mammography. Findings: Analyzed By CAD. There is no suspicious group of microcalcifications or new suspicious mass in either breast. Overall Assessment: Benign, BI-RAD 2 Management: Screening Mammogram of both breasts in 1 year. . Patient should continue monthly self-breast exams. A clinical breast exam by your physician is recommended on an annual basis. This exam should not preclude additional follow-up of suspicious palpable abnormalities. Note on Angelia scores and lifetime risk: 1. A Angelia score greater than 3% is considered moderate risk. If this is the case, consider specialist referral to assess eligibility for a risk reducing agent. 2. If overall lifetime risk for the development of breast cancer is 20% or higher, the patient may qualify for future screening with alternating mammogram and breast MRI. Electronically signed and approved by: Luis Fernando Saab M.D. Radiologis
== END | disposition home or self-care (01) ==
LOC: RADMAMWWP 13:23
PROVIDERS: ATTEND Family Medicine
DX: Z12.31 Encounter for screening mammogram for malignant neoplasm of breast (principal); Z78.0 Asymptomatic menopausal state
CPT/HCPCS: 77063; 77067

== ENCOUNTER 2024-03-18 15:22 | Inpatient (IN) | payer MEDICARE ==
[2024-03-18] MEDS: SODIUM CHLORIDE 0.9% 500 ML 500 ML IV STA (15:59)
[2024-03-18 16:02] LABS: Basophils # (A) 0.1 k/uL (0-0.2); Basophils % (A) 1 %; Eosinophils # (A) 0.3 k/uL (0-0.7); Eosinophils % (A) 3 %; HCT 37.5 % (34.0-46.0); HGB 12.4 gm/dL (11.4-16.0); Lymphocytes # (A) 1.8 k/uL (1.0-4.8); Lymphocytes % (A) 18 %; MCH 27.8 pg (25.0-35.0); MCV 84.2 fL (80.0-100.0); Monocytes # (A) 0.3 k/uL (0-1.0); Monocytes % (A) 3 %; Neutrophils # (A) 7.2 k/uL (1.3-7.7); Neutrophils % (A) 74 %; Platelet Count 425 k/uL (150-450); RBC 4.46 m/uL (3.80-5.40); RDW 13.9 % (11.5-15.5); WBC 9.7 k/uL (3.8-10.6)
--- NOTE | 2024-03-18 16:05 | ED ---
Recheck HPI - General Chief Complaint: Recheck/Abnormal Lab/Rx Stated Complaint: Critical labs, Time Seen by Provider: 03/18/24 15:38 Source: patient, RN notes reviewed, old records reviewed Mode of arrival: EMS Limitations: no limitations - History of Present Illness Initial Comments: This is a 78-year-old female to the ER for evaluation of shortness of breath severe shortness of breath with dyspnea. Patient presents today for severe shortness of breath dyspnea abdominal pain swelling severe lower extremity swelling MD Complaint: other (Recheck lower extremity edema) -: days(s) Returns Today for: persistent/worsening pain related to initial visit Symptoms Since Prior Visit: worsening pain Context: planned re-check, called for abnormal lab result Treatments Prior to Arrival: Given Pain Meds on - Related Data Home Medications Medication Instructions Recorded Confirmed Atorvastatin [Lipitor] 10 mg PO DAILY 08/23/21 03/18/24 Levothyroxine Sodium [Synthroid] 88 mcg PO DAILY 03/18/24 03/18/24 Allergies Allergy/AdvReac Type Severity Reaction Status Date / Time No Known Allergies Allergy Verified 03/18/24 19:20 Review of Systems ROS Statement: Those systems with pertinent positive or pertinent negative responses have been documented in the HPI. ROS Other: All systems not noted in ROS Statement are negative. Past Medical History Past Medical History: Hypertension, Thyroid Disorder Additional Past Medical History / Comment(s): ENVIRONMENTAL ALLERGIES History of Any Multi-Drug Resistant Organisms: None Reported Past Surgical History: Appendectomy Additional Past Surgical History / Comment(s): COLONOSCOPY, D and C Additional Past Anesthesia/Blood Transfusion Reaction / Comment(s): HAS NEVER HAD GENERAL ANESTHESIA. Past Psychological History: No Psychological Hx Reported Smoking Status: Former smoker Past Alcohol Use History: Rare Past Drug Use History: None Reported - Past Family History Mother Family Medical History: Dementia Father Family Medical History: Congestive Heart Failure (CHF), COPD, Diabetes Mellitus General Exam General appearance: alert, in no apparent distress Head exam: Present: atraumatic, normocephalic, normal inspection Eye exam: Present: normal appearance, PERRL, EOMI. Absent: scleral icterus, conjunctival injection, periorbital swelling ENT exam: Present: normal exam, mucous membranes moist Neck exam: Present: normal inspection. Absent: tenderness, meningismus, lymphadenopathy Respiratory exam: Present: normal lung sounds bilaterally. Absent: respiratory distress, wheezes, rales, rhonchi, stridor Cardiovascular Exam: Present: regular rate, normal rhythm, normal heart sounds. Absent: systolic murmur, diastolic murmur, rubs, gallop, clicks GI/Abdominal exam: Present: soft, normal bowel sounds. Absent: distended, tenderness, guarding, rebound, rigid Extremities exam: Present: normal inspection, full ROM, normal capillary refill. Absent: tenderness, pedal edema, joint swelling, calf tenderness Back exam: Present: normal inspection Neurological exam: Present: alert, oriented X3, CN II-XII intact Psychiatric exam: Present: normal affect, normal mood Skin exam: Present: warm, dry, intact, normal color. Absent: rash Course Vital Signs 03/18/24 03/18/24 03/18/24 15:25 18:21 20:35 Temperature 97.6 F 98.0 F Pulse Rate 65 69 66 Pulse Rate [ Leaf Fat Scraper ] Respiratory 14 14 18 Rate Blood Pressure 93/55 89/53 81/41 Blood Pressure [Right Arm] O2 Sat by Pulse 95 97 93 L Oximetry 03/18/24 03/18/24 03/19/24 21:44 22:05 00:23 Temperature 97.6 F Pulse Rate 69 67 71 Pulse Rate [ Leaf Fat Scraper ] Respiratory 16 18 16 Rate Blood Pressure 100/63 98/49 90/48 Blood Pressure [Right Arm] O2 Sat by Pulse 95 95 Oximetry 03/19/24 03/19/24 03/19/24 01:15 01:22 01:54 Temperature Pulse Rate Pulse Rate [ Leaf Fat Scraper ] Respiratory Rate Blood Pressure Blood Pressure 86/44 81/41 78/41 [Right Arm] O2 Sat by Pulse Oximetry 03/19/24 03/19/24 03/19/24 01:57 02:30 04:00 Temperature 98.5 F Pulse Rate Pulse Rate [ 63 Leaf Fat Scraper ] Respiratory 16 Rate Blood Pressure Blood Pressure 82/39 91/55 85/46 [Right Arm] O2 Sat by Pulse 98 Oximetry 03/19/24 03/19/24 03/19/24 05:00 05:30 05:45 Temperature Pulse Rate Pulse Rate [ Leaf Fat Scraper ] Respiratory Rate Blood Pressure Blood Pressure 89/51 86/44 79/44 [Right Arm] O2 Sat by Pulse Oximetry 03/19/24 03/19/24 03/19/24 06:45 07:00 07:44 Temperature Pulse Rate 63 Pulse Rate [ Leaf Fat Scraper ] Respiratory 18 Rate Blood Pressure 84/40 Blood Pressure 95/50 90/44 [Right Arm] O2 Sat by Pulse 98 Oximetry 03/19/24 03/19/24 03/19/24 08:00 08:15 08:30 Temperature Pulse Rate 71 65 69 Pulse Rate [ Leaf Fat Scraper ] Respiratory 18 18 Rate Blood Pressure 87/37 88/39 79/39 Blood Pressure [Right Arm] O2 Sat by Pulse 98 98 Oximetry 03/19/24 03/19/24 03/19/24 08:45 09:00 09:15 Temperature Pulse Rate 62 67 76 Pulse Rate [ Leaf Fat Scraper ] Respiratory 18 18 18 Rate Blood Pressure 79/22 82/48 80/42 Blood Pressure [Right Arm] O2 Sat by Pulse 98 98 98 Oximetry 03/19/24 03/19/24 03/19/24 09:30 09:39 09:45 Temperature Pulse Rate 70 65 Pulse Rate [ Leaf Fat Scraper ] Respiratory 18 18 Rate Blood Pressure 93/51 77/51 77/51 Blood Pressure [Right Arm] O2 Sat by Pulse 98 98 Oximetry 03/19/24 03/19/24 09:57 10:00 Temperature 97.6 F Pulse Rate 65 Pulse Rate [ Leaf Fat Scraper ] Respiratory 18 22 Rate Blood Pressure 90/64 90/64 Blood Pressure [Right Arm] O2 Sat by Pulse 98 96 Oximetry - Reevaluation(s) Reevaluation #1: 03/18/24 18:44 Records reviewed Reevaluation #2: 03/18/24 18:44 Patient symptoms unchanged Reevaluation #3: 03/18/24 18:44 Patient informed of results questions answered Reevaluation #4: Was pt. sent in by a medical professional or institution (, PA, EMPLOYMENT EVALUATOR/CASE MANAGER, urgent care, hospital, or prison...) When possible be specific @ -no Did you speak to anyone other than the patient for history (EMS, parent, family, police, friend...)? What history was obtained from this source @ -no Did you review nursing and triage notes (agree or disagree)? Why? @ -agree Are old charts reviewed (outside hosp., previous admission, EMS record, old EKG, old radiological studies, urgent care reports/EKG's, prison records)? Report findings @ -yes Differential Diagnosis (chest pain, altered mental status, abdominal pain women, abdominal pain men, vaginal bleeding, weakness, fever, dyspnea, syncope, headache, dizziness, GI bleed, back pain, seizure, CVA, palpatations, mental health, musculoskeletal)? @ -prior EKG interpreted by me (3pts min.). @ -yes X-rays interpreted by me (1pt min.). @ -yes negative for acute disease CT interpreted by me (1pt min.). @ -Yes negative for acute disease U/S interpreted by me (1pt. min.). @ -no What testing was considered but not performed or refused? (CT, X-rays, U/S, labs)? Why? @ -none What meds were considered but not given or refused? Why? @ -none Did you discuss the management of the patient with other professionals (professionals i.e. , PA, EMPLOYMENT EVALUATOR/CASE MANAGER, lab, RT, psych nurse, social welfare research worker, rn manager, teacher, college service officer, continuous pillowcase cutter)? Give summary @ -no Was smoking cessation discussed for >3mins.? @ -no Were there social determinants of health that impacted care today? How? (Homelessness, low income, unemployed, alcoholism, drug addiction, transportation, low edu. Level, literacy, decrease access to med. care, long-term, rehab)? @ -none Was there de-escalation of care discussed even if they declined (Discuss DNR or withdrawal of care, Hospice)? DNR status @ -no What co-morbidities impacted this encounter? (DM, HTN, Smoking, COPD, CAD, Cancer, CVA, ARF, Chemo, Hep., AIDS, mental health diagnosis, sleep apnea, morbid obesity)? @ -none Was patient admitted / discharged? Hospital course, mention meds given and route, prescriptions, significant lab abnormalities, going to OR and other pertinent info. @ - 78 female to the ER for evaluation patient will be admitted for significant new onset of renal failure. Admitted Was critical care preformed (if so, how long)? @ -no Undiagnosed new problem with uncertain prognosis? @ -no Drug Therapy requiring intensive monitoring for toxicity (Heparin, Nitro, Insulin, Cardizem)? @ -no Were any procedures done? @ -no Diagnosis/symptom? @ -Acute renal failure Acute, or Chronic, or Acute on Chronic? @ -Acute Uncomplicated (without systemic symptoms) or Complicated (systemic symptoms)? @ -Complicated Side effects of treatment? @ -no Exacerbation, Progression, or Severe Exacerbation? @ -exacerbation Poses a threat to life or bodily function? How? (Chest pain, [place], [place], pneumonia, PE, COPD, DKA, ARF, appy, cholecystitis, CVA, Diverticulitis, Homicidal, Suicidal, threat to staff... and all critical care pts) @ -yes with extremes of age Reevaluation #5: Differential Weakness: Hypoglycemia, shock, sepsis, hyponatremia, anemia, infection, [place], ETOH, adverse medicine reaction, overdose, stroke, this is not meant to be an all-inclusive list. - Consultations Consultation #1: Spoke with admitting physicians who agreed to admit this patient Medical Decision Making - Medical Decision Making 78 female to the ER for evaluation patient will be admitted for significant new onset of renal failure. - Lab Data Result diagrams: 03/21/24 05:49 03/22/24 05:57 Lab Results 03/18/24 03/18/24 03/18/24 Range/Units 15:50 15:50 15:50 WBC 9.7 (3.8-10.6) k/uL RBC 4.46 (3.80-5.40) m/uL Hgb 12.4 (11.4-16.0) gm/dL Hct 37.5 (34.0-46.0) % MCV 84.2 (80.0-100.0) fL MCH 27.8 (25.0-35.0) pg MCHC 33.0 (31.0-37.0) g/dL RDW 13.9 (11.5-15.5) % Plt Count 425 (150-450) k/uL MPV 8.0 Neutrophils % 74 % Lymphocytes % 18 % Monocytes % 3 % Eosinophils % 3 % Basophils % 1 % Neutrophils # 7.2 (1.3-7.7) k/uL Lymphocytes # 1.8 (1.0-4.8) k/uL Monocytes # 0.3 (0-1.0) k/uL Eosinophils # 0.3 (0-0.7) k/uL Basophils # 0.1 (0-0.2) k/uL Sodium 131 L (137-145) mmol/L Potassium 4.8 (3.5-5.1) mmol/L Chloride 95 L (98-107) mmol/L Carbon Dioxide 6 L* (22-30) mmol/L Anion Gap 30 mmol/L BUN 174 H* (7-17) mg/dL Creatinine 11.94 H* (0.52-1.04) mg/dL Est GFR (CKD-EPI)AfAm 3 (>60 ml/min/1.73 sqM) Est GFR (CKD-EPI)NonAf 3 (>60 ml/min/1.73 sqM) Glucose 105 H (74-99) mg/dL Calcium 8.6 (8.4-10.2) mg/dL Phosphorus 21.3 H* (2.5-4.5) mg/dL Magnesium 2.4 H (1.6-2.3) mg/dL Total Bilirubin 0.5 (0.2-1.3) mg/dL AST 14 (14-36) U/L ALT 14 (4-34) U/L Alkaline Phosphatase 143 H (38-126) U/L Troponin I (0.000-0.034) ng/mL Total Protein 8.1 (6.3-8.2) g/dL Albumin 4.7 (3.5-5.0) g/dL Urine Color Colorless Urine Appearance Clear (Clear) Urine pH 5.0 (5.0-8.0) Ur Specific [place] 1.016 (1.001-1.035) Urine Protein 1+ H (Negative) Urine Glucose (UA) Negative (Negative) Urine Ketones Negative (Negative) Urine Blood Small H (Negative) Urine Nitrite Negative (Negative) Urine Bilirubin Negative (Negative) Urine Urobilinogen <2.0 (<2.0) mg/dL Ur Leukocyte Esterase Moderate H (Negative) Urine RBC 3 (0-5) /hpf Urine WBC 4 (0-5) /hpf Ur Squamous Epith Cells 3 (0-4) /hpf Urine Bacteria Rare H (None) /hpf Hyaline Casts 8 H (0-2) /lpf Urine Mucus Rare H (None) /hpf 03/18/24 Range/Units 15:50 WBC (3.8-10.6) k/uL RBC (3.80-5.40) m/uL Hgb (11.4-16.0) gm/dL Hct (34.0-46.0) % MCV (80.0-100.0) fL MCH (25.0-35.0) pg MCHC (31.0-37.0) g/dL RDW (11.5-15.5) % Plt Count (150-450) k/uL MPV Neutrophils % % Lymphocytes % % Monocytes % % Eosinophils % % Basophils % % Neutrophils # (1.3-7.7) k/uL Lymphocytes # (1.0-4.8) k/uL Monocytes # (0-1.0) k/uL Eosinophils # (0-0.7) k/uL Basophils # (0-0.2) k/uL Sodium (137-145) mmol/L Potassium (3.5-5.1) mmol/L Chloride (98-107) mmol/L Carbon Dioxide (22-30) mmol/L Anion Gap mmol/L BUN (7-17) mg/dL Creatinine (0.52-1.04) mg/dL Est GFR (CKD-EPI)AfAm (>60 ml/min/1.73 sqM) Est GFR (CKD-EPI)NonAf (>60 ml/min/1.73 sqM) Glucose (74-99) mg/dL Calcium (8.4-10.2) mg/dL Phosphorus (2.5-4.5) mg/dL Magnesium (1.6-2.3) mg/dL Total Bilirubin (0.2-1.3) mg/dL AST (14-36) U/L ALT (4-34) U/L Alkaline Phosphatase (38-126) U/L Troponin I <0.012 (0.000-0.034) ng/mL Total Protein (6.3-8.2) g/dL Albumin (3.5-5.0) g/dL Urine Color Urine Appearance (Clear) Urine pH (5.0-8.0) Ur Specific [place] (1.001-1.035) Urine Protein (Negative) Urine Glucose (UA) (Negative) Urine Ketones (Negative) Urine Blood (Negative) Urine Nitrite (Negative) Urine Bilirubin (Negative) Urine Urobilinogen (<2.0) mg/dL Ur Leukocyte Esterase (Negative) Urine RBC (0-5) /hpf Urine WBC (0-5) /hpf Ur Squamous Epith Cells (0-4) /hpf Urine Bacteria (None) /hpf Hyaline Casts (0-2) /lpf Urine Mucus (None) /hpf - EKG Data -: EKG Interpreted by Me (EKG is sinus 67 NH 155 QRS 91 QTc 436) - Radiology Data Radiology results: report reviewed (CT does show ascites, x-ray does show pleural effusions), image reviewed Disposition Clinical Impression: Acute renal failure Disposition: ADMITTED IP TO THIS HOSP Condition: Good Is patient prescribed a controlled substance at d/c from ED?: No Time of Disposition: 18:40
[2024-03-18 16:21] LABS: ALT 14 U/L (4-34); AST 14 U/L (14-36); Albumin 4.7 g/dL (3.5-5.0); Alkaline Phosphatase 143 U/L (38-126); Anion Gap 30 mmol/L; Calcium 8.6 mg/dL (8.4-10.2); Chloride 95 mmol/L (98-107); Glucose 105 mg/dL (74-99); Magnesium 2.4 mg/dL (1.6-2.3); Potassium 4.8 mmol/L (3.5-5.1); Sodium 131 mmol/L (137-145); Total Bilirubin 0.5 mg/dL (0.2-1.3); Total Protein 8.1 g/dL (6.3-8.2)
[2024-03-18 16:26] LABS: African American GFR (CKD) 3 (>60 ml/min/1.73 sqM); Non-African American GFR(CKD) 3 (>60 ml/min/1.73 sqM)
[2024-03-18 16:42] LABS: Carbon Dioxide 6 mmol/L (22-30)
[2024-03-18 16:43] LABS: Blood Urea Nitrogen 174 mg/dL (7-17); Phosphorus 21.3 mg/dL (2.5-4.5)
[2024-03-18] MEDS: SODIUM CHLORIDE 0.9% 1,000 ML IV STA ×2 (17:30→18:51)
[2024-03-18 17:52] LABS: Appearance,Urine Clear (Clear); Bacteria,Urine Rare /hpf; Bilirubin,Urine Negative (Negative); Blood,Urine Small (Negative); Color,Urine Colorless; Glucose,Urine (UA) Negative (Negative); Hyaline Casts,Urine 8 /lpf (0-2); Ketones,Urine Negative (Negative); Leukocyte Esterase,Urine Moderate (Negative); Mucus,Urine Rare /hpf; Nitrite,Urine Negative (Negative); Protein,Urine 1+ (Negative); RBC,Urine 3 /hpf (0-5); Specific Gravity,Urine 1.016 (1.001-1.035); Squamous Epithelial Cell,Urine 3 /hpf (0-4); Urobilinogen,Urine <2.0 mg/dL (<2.0); WBC,Urine 4 /hpf (0-5)
--- NOTE | 2024-03-18 18:36 | CT ---
EXAMINATION TYPE: CT abdomen pelvis wo con DATE OF EXAM: 03/18/2024 COMPARISON: 321 INDICATION: flank pain DLP: 450.7 mGycm, Automated exposure control for dose reduction was used. CONTRAST: 0 mL of Isovue 300. Study performed without Oral Contrast TECHNIQUE: Axial images were obtained from above the diaphragm to the pubic rami in the axial plane a t 5 mm thick sections. Reconstructed images are reviewed on the computer in the coronal plane. FINDINGS: Limited CT sections are obtained the lung bases. The lung bases are clear. CT ABDOMEN: Liver: Normal Spleen: Normal Pancreas: Normal Adrenal glands: The adrenal glands are normal. Gallbladder: Normal Kidneys: No masses are evident. No hydronephrosis is present. No cysts are present. There is a non obstructing 0.2 cm calcification within the mid left renal pelvis. Aorta: Normal Inferior vena cava: Normal. CT PELVIS: This study is without oral contrast limiting bowel evaluation. Postsurgical changes are within the le ft lower quadrant. This loop of bowel is prominent. This is increasing in prominence from comparison. Small bowel loops appear normal caliber. Appendix: Not identified. No dilated tubular structure or inflammatory changes evident. Urinary bladder: Normal. Genitourinary structures: Uterus and ovaries appear normal. Osseous structures: No suspicious lytic or sclerotic lesions. IMPRESSION: 1. Prominent loop of bowel within the pelvis. Small bowel loops however are nondilated. Mild strictu re could be considered. 2. Nonobstructing left renal stone.
[2024-03-18] MEDS ORDERED: MORPHINE SULFATE 4 MG/ML SYRINGE IV PRN (18:38)
[2024-03-18] MEDS ORDERED: NALOXONE 0.4 MG/ML 1 ML VIAL IV PRN (18:38)
--- NOTE | 2024-03-18 18:38 | XR ---
EXAMINATION TYPE: XR chest 2V DATE OF EXAM: 03/18/2024 COMPARISON: 09/02/2021 INDICATION: Effusion TECHNIQUE: Frontal and lateral views of the chest are obtained. FINDINGS: The heart size is mildly prominent.. The pulmonary vasculature is prominent. No suspicious focal consolidation is evident. No suspicious pleural effusions. Some mild overload may be present.. IMPRESSION: 1. Clinical correlation recommended for early congestive heart failure. 2. No definite pleural effusion identified
[2024-03-18] MEDS: SODIUM BICARB 8.4% 50 ML SYR (1 MEQ/ML) IV STA (18:50)
[2024-03-18] MEDS: ACETAMINOPHEN TAB 325 MG TAB PO PRN (19:05)
[2024-03-18] MEDS: DEXTROSE 5% IN WATER 1,000 ML with SODIUM BICARB (1 MEQ/ML) 150 ML IV SCH (20:59)
[2024-03-19] MEDS: SODIUM CHLORIDE 0.9% 500 ML 250 ML IV ONE (01:27)
[2024-03-19] MEDS: SODIUM CHLORIDE 0.9% 1,000 ML IV ONE ×2 (06:02→17:10)
[2024-03-19] MEDS: MIDODRINE 5 MG TAB PO SCH (06:13)
[2024-03-19] MEDS: NOREPINEPHRINE 4 MG in SODIUM CHLORIDE 0.9% 250 ML IV ONE (09:28)
--- NOTE | 2024-03-19 10:12 | XR ---
EXAMINATION TYPE: XR knee complete LT DATE OF EXAM: 03/19/2024 COMPARISON: NONE HISTORY: Pain TECHNIQUE: Three views are submitted. FINDINGS: Mild demineralization. There is mild narrowing patellofemoral and medial compartment of the knee join t. Large spur along the upper margin patella. Small amount of fluid in the suprapatellar bursa.. Oss eous structures are intact. No acute fracture seen. Vascular calcifications noted. IMPRESSION: 1. Mild osteoarthritis. 2. Small amount of fluid in the suprapatellar bursa.
[2024-03-19 10:15] LABS: Glucose,Whole Blood 99 mg/dL (70-110)
[2024-03-19] MEDS ORDERED: Potassium Replacement Protocol 1 EACH MISC MISCELLANE PRN (10:25)
[2024-03-19] MEDS ORDERED: Magnesium Replacement Protocol 1 EACH MISC MISCELLANE PRN (10:25)
[2024-03-19 11:29] LABS: ALT 12 U/L (4-34); AST 14 U/L (14-36); African American GFR (CKD) 7 (>60 ml/min/1.73 sqM); Albumin 3.4 g/dL (3.5-5.0); Alkaline Phosphatase 108 U/L (38-126); Anion Gap 18 mmol/L; Calcium 7.1 mg/dL (8.4-10.2); Carbon Dioxide 13 mmol/L (22-30); Chloride 106 mmol/L (98-107); Glucose 96 mg/dL (74-99); Non-African American GFR(CKD) 6 (>60 ml/min/1.73 sqM); Potassium 3.5 mmol/L (3.5-5.1); Sodium 137 mmol/L (137-145); Total Bilirubin 0.4 mg/dL (0.2-1.3); Total Protein 6.2 g/dL (6.3-8.2)
[2024-03-19 11:39] LABS: Blood Urea Nitrogen 145 mg/dL (7-17); Phosphorus 11.2 mg/dL (2.5-4.5)
[2024-03-19 11:49] LABS: Basophils # (A) 0.1 k/uL (0-0.2); Basophils % (A) 1 %; Eosinophils # (A) 0.2 k/uL (0-0.7); Eosinophils % (A) 2 %; HCT 29.3 % (34.0-46.0); Lymphocytes # (A) 1.3 k/uL (1.0-4.8); Lymphocytes % (A) 13 %; MCH 27.6 pg (25.0-35.0); MCHC 33.3 g/dL (31.0-37.0); MCV 82.8 fL (80.0-100.0); Mean Platelet Volume 8.7; Monocytes # (A) 0.5 k/uL (0-1.0); Monocytes % (A) 5 %; Neutrophils # (A) 7.6 k/uL (1.3-7.7); Neutrophils % (A) 79 %; Platelet Count 417 k/uL (150-450); RBC 3.54 m/uL (3.80-5.40); RDW 14.2 % (11.5-15.5); WBC 9.7 k/uL (3.8-10.6)
[2024-03-19 11:54] LABS: Appearance,Urine Clear (Clear); Bacteria,Urine Rare /hpf; Bilirubin,Urine Negative (Negative); Blood,Urine Small (Negative); Color,Urine Colorless; Glucose,Urine (UA) Negative (Negative); Hyaline Casts,Urine 1 /lpf (0-2); Ketones,Urine Negative (Negative); Leukocyte Esterase,Urine Moderate (Negative); Mucus,Urine Rare /hpf; Nitrite,Urine Negative (Negative); Protein,Urine Trace (Negative); RBC,Urine 4 /hpf (0-5); Specific Gravity,Urine 1.013 (1.001-1.035); Squamous Epithelial Cell,Urine <1 /hpf (0-4); Urobilinogen,Urine <2.0 mg/dL (<2.0); WBC,Urine 17 /hpf (0-5)
[2024-03-19 11:57] LABS: HGB 9.8 gm/dL (11.4-16.0)
--- NOTE | 2024-03-19 13:13 | US ---
EXAMINATION TYPE: US kidneys/renal and bladder DATE OF EXAM: 03/19/2024 COMPARISON: CLINICAL INDICATION: Female, 78 years old with history of Mary; Abnormal labs. No pain. Bladder fole y. Portable inpatient exam EXAM MEASUREMENTS: Right Kidney: 9.8 x 4.5 x 4.1 cm Left Kidney: 10.0 x 5.3 x 5.3 cm Right Kidney: Extrarenal pelvis . No new findings. Left Kidney: No hydronephrosis, nephrolithiasis or masses seen Bladder: Olivier seen. Nondistended bladder with Olivier catheter limits assessment. Renal cortical echogenicity and thickness maintained. No sizable perinephric fluid collection. IMPRESSION: No acute process.
--- NOTE | 2024-03-19 14:04 | P.CNPUL ---
History of Present Illness Consult date: 03/19/24 Requesting physician: Ludy Gómez Reason for consult: other (Hypotension) Chief complaint: Left knee pain History of present illness: This is a 78-year-old female, history of hypertension, and history of hypothyroidism, patient is primarily a patient of Dr. Choe, and she is today pH of Dr. Burton in the past. Patient came in for evaluation of left knee pain which she had for almost over a week. She had no symptoms of shortness of breath, no cough no wheezing no chest pain. No abdominal pain, workup in the ER revealed significant abnormal labs including acute renal failure with BUN as high as 174 and creatinine of 11.9. Patient was also noted to be hypotensive, she was given fluids and placed on norepinephrine at 0.03 mcg/kg/min. In the meantime the patient was noted to be acidotic and surprisingly did not have any symptoms of shortness of breath, patient was placed on a bicarb drip at 100 cc/h, she received a total of 4 L of fluids upon presentation, blood pressure remains soft, and she is requiring norepinephrine. Patient denies any previous kidney injury, but she was told in the past not to take any nonsteroidal anti- inflammatory drugs, patient has been taking mostly Tylenol. Has not taken any nonsteroidal anti-inflammatory drugs in the last 5 months. Normally the patient is on lisinopril at 20 mg daily, she is also on levothyroxine 88 mcg daily, patient is on atorvastatin 10 mg daily considering her hypotension and requirement for pressors, and spite of fluids given, I was asked to see the patient in consultation, and I did see her down in the ER, will recommend admission to the ICU, nephrology has already seen the patient on consultation, and patient will continue with IV fluids, she will receive empiric antibiotics, will arrange for x-rays of her left knee, and will arrange for orthopedic evaluation of the left knee pain. CT of the abdomen pelvis showed no evidence of hydronephrosis, no masses, he had a nonobstructing calculus 0.2 cm calcification within the mid left renal pelvis, chest x-ray showed slight prominence of the pulmonary vasculature otherwise unremarkable. No pleural effusion, no infiltrate ultrasound of abdomen and pelvis showed no acute process Review of Systems REVIEW OF SYSTEMS: CONSTITUTIONAL: Negative. EYES: Negative. ENT: Negative. CARDIAC: Negative. PULMONARY: No cough no wheezing no shortness of breath GI: Negative. GENITOURINARY: Negative. MUSCULOSKELETAL: Left knee pain SKIN: Negative. NEUROPSYCH: Negative. ENDOCRINE: Negative. HEMATOLOGIC: Negative. Past Medical History Past Medical History: Hypertension, Thyroid Disorder Additional Past Medical History / Comment(s): ENVIRONMENTAL ALLERGIES History of Any Multi-Drug Resistant Organisms: None Reported Past Surgical History: Appendectomy Additional Past Surgical History / Comment(s): COLONOSCOPY, D and C Additional Past Anesthesia/Blood Transfusion Reaction / Comment(s): HAS NEVER HAD GENERAL ANESTHESIA. Past Psychological History: No Psychological Hx Reported Smoking Status: Former smoker Past Alcohol Use History: Rare Additional Past Alcohol Use History / Comment(s): SMOKED FOR 50 YRS, ABOUT 1/2 PPD. Past Drug Use History: None Reported - Past Family History Mother Family Medical History: Dementia Father Family Medical History: Congestive Heart Failure (CHF), COPD, Diabetes Mellitus Medications and Allergies Home Medications Medication Instructions Recorded Confirmed Type Atorvastatin [Lipitor] 10 mg PO DAILY 08/23/21 03/18/24 History Levothyroxine Sodium [Synthroid] 88 mcg PO DAILY 03/18/24 03/18/24 History lisinopriL [Zestril] 20 mg PO DAILY 03/18/24 03/18/24 History Allergies Allergy/AdvReac Type Severity Reaction Status Date / Time No Known Allergies Allergy Verified 03/18/24 19:20 Physical Exam Vitals: Vital Signs Temp Pulse Pulse Resp BP BP Pulse Ox 03/19/24 13:00 71 21 83/43 94 L 03/19/24 12:45 71 16 114/39 97 03/19/24 12:30 71 15 88/44 94 L 03/19/24 12:15 62 18 90/45 93 L 03/19/24 12:12 98.0 F 62 22 90/45 92 L 03/19/24 10:00 97.6 F 22 90/64 96 03/19/24 09:57 65 18 90/64 98 03/19/24 09:45 77/51 03/19/24 09:39 65 18 77/51 98 03/19/24 09:30 70 18 93/51 98 03/19/24 09:15 76 18 80/42 98 03/19/24 09:00 67 18 82/48 98 03/19/24 08:45 62 18 79/22 98 05/30/24 08:30 69 18 79/39 98 03/19/24 08:15 65 18 88/39 98 03/19/24 08:00 71 87/37 03/19/24 07:44 63 18 84/40 98 03/19/24 07:00 90/44 03/19/24 06:45 95/50 03/19/24 05:45 79/44 03/19/24 05:30 86/44 03/19/24 05:00 89/51 03/19/24 04:00 98.5 F 63 16 85/46 98 03/19/24 02:30 91/55 03/19/24 01:57 82/39 03/19/24 01:54 78/41 03/19/24 01:22 81/41 03/19/24 01:15 86/44 03/19/24 00:23 97.6 F 71 16 90/48 95 03/18/24 22:05 67 18 98/49 03/18/24 21:44 69 16 100/63 95 03/18/24 20:35 66 18 81/41 93 L 03/18/24 18:21 98.0 F 69 14 89/53 97 03/18/24 15:25 97.6 F 65 14 93/55 95 Intake and Output 03/18/24 03/19/24 03/19/24 22:59 06:59 14:59 Intake Total 2439.398 Output Total 700 250 Balance -700 2189.398 Intake: IV 2400 Dextrose 5% in Water 1, 400 000 ml @ 100 mls/hr IV . [id number] SONIA with Sodium Bicarb (1 Meq/ml) 150 ml Rx#:[id number] Sodium Chloride 0.9% 1, 1000 000 ml @ 999 mls/hr IV . Q1H1M ONE Rx#:[id number] Sodium Chloride 0.9% 1, 1000 000 ml @ 999 mls/hr IV . Q1H1M STA Rx#:[id number] Intake, IV Titration 39.398 Amount Norepinephrine 4 mg In 39.398 Sodium Chloride 0.9% 250 ml @ 0.03 MCG/KG/MIN 7. 725 mls/hr IV .Q24H ONE Rx#:[id number] Output: Urine 700 250 Other: Voiding Method Indwelling Catheter Indwelling Catheter Weight 67.585 kg 67.585 kg General: The patient is awake and alert, in no distress, and does not appear acutely ill. On room air Skin: Skin is warm and dry and no rashes or lesions are noted. Eye: Pupils are equal, round and reactive to light, extra-ocular movements are intact; there is normal conjunctiva bilaterally. Ears, nose, mouth and throat: There are moist mucous membranes and no oral lesions. Neck: The neck is supple, there is no tenderness or JVD. Cardiovascular: There is a regular rate and rhythm. No murmur, rub or gallop is appreciated. Respiratory: Symmetrical chest expansion, clear breath sound bilaterally, no crackles rhonchi or wheezes Gastrointestinal: Soft, non-distended, non-tender abdomen without masses or organomegaly noted. There is no rebound or guarding present. Bowel sounds are unremarkable. Musculoskeletal: Tenderness noted over the left knee joint, otherwise unremarkable, no evidence of erythema, no evidence of swelling.. Neurological: Alert oriented x 3 no gross focal deficit Psychiatric: Normal mood, affect and no mental status examination. Results - Laboratory Findings CBC and BMP: 03/19/24 09:33 03/19/24 09:33 Abnormal lab findings: Abnormal Labs 03/18/24 03/18/24 03/19/24 15:50 15:50 09:33 RBC 3.54 L Hgb 9.8 L D Hct 29.3 L Sodium 131 L Chloride 95 L Carbon Dioxide 6 L* BUN 174 H* Creatinine 11.94 H* Glucose 105 H Calcium Phosphorus 21.3 H* Magnesium 2.4 H Alkaline Phosphatase 143 H Total Protein Albumin Urine Protein 1+ H Urine Blood Small H Ur Leukocyte Esterase Moderate H Urine Bacteria Rare H Hyaline Casts 8 H Urine Mucus Rare H 03/19/24 09:33 RBC Hgb Hct Sodium Chloride Carbon Dioxide 13 L BUN 145 H* Creatinine 6.26 H Glucose Calcium 7.1 L Phosphorus 11.2 H* Magnesium Alkaline Phosphatase Total Protein 6.2 L Albumin 3.4 L Urine Protein Urine Blood Ur Leukocyte Esterase Urine Bacteria Hyaline Casts Urine Mucus - Diagnostic Findings Chest x-ray: image reviewed (As noted in HPI) Additional studies: The abdomen pelvis, ultrasound of abdomen and pelvis as noted in HPI Assessment and Plan Assessment: Impression: Acute renal failure,/acute kidney injury most likely secondary to acute tubular necrosis related to hypotension on presentation. Possible profound dehydration Left knee pain, possible septic arthritis. Possible septic shock. Considering the patient failed to respond to fluid boluses, received a total of 4 L of fluid boluses for low blood pressure. No clear-cut source for sepsis at this point except the patient does have left knee pain which will be addressed accordingly. Acute anion gap metabolic acidosis secondary to acute renal failure. History of benign essential hypertension Dyslipidemia History of hypothyroidism Recommendation: Admit patient to ICU Continue IV fluids and continue norepinephrine and titrate accordingly Continue sodium bicarb drip GI and DVT prophylaxis Hold lisinopril Antibiotics in the form of Zosyn empirically for now, check blood cultures. Orthopedics to evaluate left knee pain and ordered x-rays of left knee Close monitoring of renal status, as a matter fact significant improvement noted and renal cysts profile almost overnight after receiving fluids, hence we will continue fluids for now and continue bicarb drip. Resume levothyroxine and statins Nephrology consultation is pending Will continue to monitor while in the ICU. Patient was seen in the ER, and recommended ICU admission. Time with Patient: Greater than 30
--- NOTE | 2024-03-19 14:21 | P.CNOR ---
History of Present Illness - HPI Consult date: 03/19/24 History of present illness: Patient is a 78-year-old female who presents to the ER [facility] with a chief complaint of shortness of breath, abdominal pain and lower extremity swelling. Patient has a past medical history significant for hypertension, hypothyroidism. Workup in the emergency department revealed significant abno rmal labs with acute renal failure. Orthopedics was consulted due to left knee pain and difficulty with ambulation on the left lower extremity. Patient was seen this morning in the ICU lying in semirecumbent position in bed. Patient says about 10 days ago while she was at home her dog jumped on the bed and landed directly on her left knee. Patient says since this incident she has had difficulty ambulating on the left lower extremity. Patient says she has had moderate to severe pain when trying to flex and extend the left knee. Patient says most of the pain is directly over the left kneecap. Patient denies any previous knee surgery. Patient denies any fever/chills. Patient says she does have a history of gout for which she has only had in both of her feet. X-ray of the left knee does demonstrate small suprapatellar effusion and very mild osteoarthritis. Negative for any fractures or significant swelling. Past Medical History Past Medical History: Hypertension, Thyroid Disorder Additional Past Medical History / Comment(s): ENVIRONMENTAL ALLERGIES History of Any Multi-Drug Resistant Organisms: None Reported Past Surgical History: Appendectomy Additional Past Surgical History / Comment(s): COLONOSCOPY, D and C Additional Past Anesthesia/Blood Transfusion Reaction / Comm: HAS NEVER HAD GENERAL ANESTHESIA. Past Psychological History: No Psychological Hx Reported Smoking Status: Former smoker Past Alcohol Use History: Rare Additional Past Alcohol Use History / Comment(s): SMOKED FOR 50 YRS, ABOUT 1/2 PPD. Past Drug Use History: None Reported - Past Family History Mother Family Medical History: Dementia Father Family Medical History: Congestive Heart Failure (CHF), COPD, Diabetes Mellitus Medications and Allergies Home Medications Medication Instructions Recorded Confirmed Type Atorvastatin [Lipitor] 10 mg PO DAILY 08/23/21 03/18/24 History Levothyroxine Sodium [Synthroid] 88 mcg PO DAILY 03/18/24 03/18/24 History lisinopriL [Zestril] 20 mg PO DAILY 03/18/24 03/18/24 History Allergies Allergy/AdvReac Type Severity Reaction Status Date / Time No Known Allergies Allergy Verified 03/18/24 19:20 Physical Examination Inspection: Very small nonraised area of erythema measuring about 2 x 1 cm over the patella on the left lower extremity. Negative for any ecchymosis or open wounds or open fractures. Negative for any abrasions surrounding the left knee. Positive for very mild swelling in the suprapatellar region. Sensation: Equal, symmetric, by intact throughout the upper and lower extremities. Palpation: Skin is lukewarm to the touch. Moderate to severe tenderness to patient directly over the left patella. Nontender to palpation throughout rest of left lower extremity exam. Nontender to patient over the medial and lateral compartments Range of motion: Patient has full range of motion throughout all joints and right lower extremity on exam. Patient holds left knee in about 10 degrees lacking full extension. Patient is unable to fully extend the left knee due to increasing pain and patient has pain when she attempts to flex the left knee. Patient does have good range of motion throughout left hip on exam. Patient is able to wiggle digits in bilateral lower extremities. On passive range of motion exam of left knee patient does have increased pain with flexion to about 45 degrees. Motor: 4/5 in all major motor groups in the right lower extremity. 3+/5 in resisted left hip flexion's extension and left knee flexion with extension. 4-/5 in resisted left ankle dorsi/plantarflexion. Neurovascular: Radial pulses intact, 2+ bilaterally. Cap refill under 3 seconds in digits of lower extremities Special test: Negative logroll maneuver bilaterally. Negative Homans bilaterally. Results - Labs Labs: Abnormal Lab Results - Last 24 Hours (Table) 03/18/24 03/18/24 03/19/24 Range/Units 15:50 15:50 09:33 Sodium 131 L (137-145) mmol/L Chloride 95 L (98-107) mmol/L Carbon Dioxide 6 L* 13 L (22-30) mmol/L BUN 174 H* 145 H* (7-17) mg/dL Creatinine 11.94 H* 6.26 H (0.52-1.04) mg/dL Glucose 105 H (74-99) mg/dL Calcium 7.1 L (8.4-10.2) mg/dL Phosphorus 21.3 H* 11.2 H* (2.5-4.5) mg/dL Magnesium 2.4 H (1.6-2.3) mg/dL Alkaline Phosphatase 143 H (38-126) U/L Total Protein 6.2 L (6.3-8.2) g/dL Albumin 3.4 L (3.5-5.0) g/dL Urine Protein 1+ H (Negative) Urine Blood Small H (Negative) Ur Leukocyte Esterase Moderate H (Negative) Urine Bacteria Rare H (None) /hpf Hyaline Casts 8 H (0-2) /lpf Urine Mucus Rare H (None) /hpf H & H 03/18/24 Range/Units 15:50 Hgb 12.4 (11.4-16.0) gm/dL Hct 37.5 (34.0-46.0) % Result Diagrams: 03/19/24 09:33 03/19/24 09:33 - Diagnostic results Knee x-ray: report reviewed, image reviewed (X-ray of the left knee does demonstrate small suprapatellar effusion. Positive for mild osteoarthritis in the medial and patellofemoral compartments. Negative for any fractures. Negative for any dislocation.) Assessment and Plan Assessment: 1. Left knee pain; mild left knee osteoarthritis Plan: 1. Left knee pain; mild left knee osteoarthritis - X-ray of the left knee does demonstrate small suprapatellar effusion. Positive for mild osteoarthritis in the medial and patellofemoral compartments. Negative for any fractures. Negative for any dislocation. Patient does have a history of gout. Low concern for septic knee at this time. We will order ESR and CRP for further evaluation. I did discuss the findings of the imaging and exam with my attending, Dr. Townsend. At this time we are not recommending any emergent orthopedic surgical intervention. We will continue conservative measures with the use of pain medication and PT/OT. We will continue to follow patient during her stay in the hospital. 2. Appreciate medical and pulmonology management 3. Pain management -Tylenol 4. DVT prophylaxis -heparin 5. GI prophylaxis recs 6. PT/OT - weight-bearing as tolerated with walker and assistance as needed 7. Encourage incentive spirometer use 8. Appreciate consult Time with Patient: Less than 30
--- NOTE | 2024-03-19 14:29 | P.HPIM ---
History of Present Illness H&P Date: 03/19/24 History of present illness; patient is a 78-year-old lady with past medical history significant for hypertension, hypothyroidism who presented to the ER for left knee pain. Patient stated that she was all right 1 week back when she developed left knee pain after one of her dogs jumped on it. Patient stated following that she has been hobbling on her left knee. Denies taking any NSAIDs or [id number] medications. There was no complaint of any fever or chills. Patient denies any shortness of breath. There is no complaint of nausea, vomiting abdominal pain. There is no complaint of lightheadedness or dizziness. Patient denies any altered bowel movements. Patient stated that she has been hydrating herself. Initial lab work done in the ER showed WBC 9.7, hemoglobin 12.4, platelet count 425, sodium 131, potassium 4.8, BUN 174, creatinine 1.94, glucose 105, phosphorus 21.3, magnesium 2.4, AST 14, ALT 14 UA negative for any infection EKG done in the ER showed heart rate of 67, no ST segment elevation or depression seen, no T-wave inversions seen. Chest x-ray done in the ER showed no definite pleural effusion. Clinical correlation recommended for early congestive heart failure CT abdomen pelvis done showed prominent loops of bowel within the pelvis. Small bowel loops are nondilated. Mild stricture could be considered Patient admitted to internal medicine service REVIEW OF SYSTEMS: CONSTITUTIONAL: As mentioned above HEENT: No recent visual problems or hearing problems. Denied any sore throat. CARDIOVASCULAR: No chest pain, orthopnea, PND, no palpitations, no syncope. PULMONARY: No shortness of breath, no cough, no hemoptysis. GASTROINTESTINAL: As mentioned above. NEUROLOGICAL: No headaches, no weakness, no numbness. HEMATOLOGICAL: Denies any bleeding or petechiae. GENITOURINARY: Denies any burning micturition, frequency, or urgency. MUSCULOSKELETAL/RHEUMATOLOGICAL: As mentioned above ENDOCRINE: Denies any polyuria or polydipsia. The rest of the 14-point review of systems is negative. PHYSICAL EXAMINATION: GENERAL: The patient is alert and oriented x3, not in any acute distress. Well developed, well nourished. HEENT: Pupils are round and equally reacting to light. EOMI. No scleral icterus. No conjunctival pallor. Normocephalic, atraumatic. No pharyngeal erythema. No thyromegaly. CARDIOVASCULAR: S1 and S2 present. No murmurs, rubs, or gallops. PULMONARY: Chest is clear to auscultation, no wheezing or crackles. ABDOMEN: Soft, nontender, nondistended, normoactive bowel sounds. No palpable organomegaly. MUSCULOSKELETAL: No joint swelling or deformity. EXTREMITIES: No cyanosis, clubbing, or pedal edema. NEUROLOGICAL: Gross neurological examination did not reveal any focal deficits. SKIN: No rashes. Assessment and plan Acute kidney injury Metabolic acidosis Hypotension Hyperphosphatemia Hypothyroidism History of hypertension Monitor vital signs Monitor CBC Monitor CMP Continue telemetry monitoring Ordered blood cultures Ordered 2D Avoid nephrotoxic agent Strict I's and O's, daily weights Ordered ultrasound of kidneys Ordered urine lites Ordered serum and urine osmolality Continue IV fluids Continue bicarb Nephrology consulted. Orthopedic consulted for left knee pain ICU consulted for critical care management Labs and medication were reviewed.. Continue same treatment. Continue with symptomatic treatment. Resume home medication. Monitor labs and vitals. DVT and GI prophylaxis. Further recommendations as per clinical course of the patient Dictation was produced using [employer] dictation software. please excuse any grammatical, word or spelling errors. Past Medical History Past Medical History: Hypertension, Thyroid Disorder Additional Past Medical History / Comment(s): ENVIRONMENTAL ALLERGIES History of Any Multi-Drug Resistant Organisms: None Reported Past Surgical History: Appendectomy Additional Past Surgical History / Comment(s): COLONOSCOPY, D and C Additional Past Anesthesia/Blood Transfusion Reaction / Comment(s): HAS NEVER HAD GENERAL ANESTHESIA. Past Psychological History: No Psychological Hx Reported Smoking Status: Former smoker Past Alcohol Use History: Rare Additional Past Alcohol Use History / Comment(s): SMOKED FOR 50 YRS, ABOUT 1/2 PPD. Past Drug Use History: None Reported - Past Family History Mother Family Medical History: Dementia Father Family Medical History: Congestive Heart Failure (CHF), COPD, Diabetes Mellitus Medications and Allergies Home Medications Medication Instructions Recorded Confirmed Type Atorvastatin [Lipitor] 10 mg PO DAILY 08/23/21 03/18/24 History Levothyroxine Sodium [Synthroid] 88 mcg PO DAILY 03/18/24 03/18/24 History lisinopriL [Zestril] 20 mg PO DAILY 03/18/24 03/18/24 History Allergies Allergy/AdvReac Type Severity Reaction Status Date / Time No Known Allergies Allergy Verified 03/18/24 19:20 Physical Exam Vitals: Vital Signs Temp Pulse Pulse Resp BP BP Pulse Ox 03/19/24 09:39 65 18 77/51 98 03/19/24 09:30 70 18 93/51 98 03/19/24 09:15 76 18 80/42 98 03/19/24 09:00 67 18 82/48 98 03/19/24 08:45 62 18 79/22 98 03/19/24 08:30 69 18 79/39 98 03/19/24 08:15 65 18 88/39 98 03/19/24 08:00 71 87/37 03/19/24 07:44 63 18 84/40 98 03/19/24 07:00 90/44 03/19/24 06:45 95/50 03/19/24 05:45 79/44 03/19/24 05:30 86/44 03/19/24 05:00 89/51 03/19/24 04:00 98.5 F 63 16 85/46 98 03/19/24 02:30 91/55 03/19/24 01:57 82/39 03/19/24 01:54 78/41 03/19/24 01:22 81/41 03/19/24 01:15 86/44 03/19/24 00:23 97.6 F 71 16 90/48 95 03/18/24 22:05 67 18 98/49 03/18/24 21:44 69 16 100/63 95 03/18/24 20:35 66 18 81/41 93 L 03/18/24 18:21 98.0 F 69 14 89/53 97 03/18/24 15:25 97.6 F 65 14 93/55 95 Intake and Output 03/18/24 03/19/24 03/19/24 22:59 06:59 14:59 Output Total 700 Balance -700 Output: Urine 700 Other: Voiding Method Indwelling Catheter Weight 67.585 kg 67.585 kg Results CBC & Chem 7: 03/19/24 09:33 03/19/24 09:33 Labs: Abnormal Lab Results - Last 24 Hours (Table) 03/18/24 03/18/24 Range/Units 15:50 15:50 Sodium 131 L (137-145) mmol/L Chloride 95 L (98-107) mmol/L Carbon Dioxide 6 L* (22-30) mmol/L BUN 174 H* (7-17) mg/dL Creatinine 11.94 H* (0.52-1.04) mg/dL Glucose 105 H (74-99) mg/dL Phosphorus 21.3 H* (2.5-4.5) mg/dL Magnesium 2.4 H (1.6-2.3) mg/dL Alkaline Phosphatase 143 H (38-126) U/L Urine Protein 1+ H (Negative) Urine Blood Small H (Negative) Ur Leukocyte Esterase Moderate H (Negative) Urine Bacteria Rare H (None) /hpf Hyaline Casts 8 H (0-2) /lpf Urine Mucus Rare H (None) /hpf
[2024-03-19 14:32] LABS: Creatinine,Urine Random 107.7 mg/dL
[2024-03-19] MEDS: POTASSIUM CHLORIDE ER 20 MEQ TAB.ER PO STA (14:37)
[2024-03-19] MEDS: PIPERACILLIN-TAZOBACTAM 3.375 GM in SODIUM CHLORIDE 0.9% 100 ML IVPB SCH (14:38)
--- NOTE | 2024-03-19 14:45 | P.NPCON ---
History of Present Illness - Reason for Consult acute renal failure - History of Present Illness patient is a 78-year-old female with history of hypertension who follows with Dr. Choe. Patient is admitted to the hospital with complaints of severe left knee pain which has been going on for about a week after her dog jumped on her knee. Patient denies any previous history of kidney diseases. Patient has been complaining of weakness and also noticed decreased urine output over the past 2-3 days. On admission serum creatinine was 11.9 with BUN at 174. Next Patient was also significantly hypotensive with systolic blood pressures in the 80s. She has received about 4 L of fluid boluses and because of continued hypotension patient has been transferred to the ICU. Urine output has increased. serum creatinine decreased to 6.2 today. no history of use of NSAIDs. PITA inhibitor's currently on hold. Review of Systems as for HPI Past Medical History Past Medical History: Hypertension, Thyroid Disorder Additional Past Medical History / Comment(s): ENVIRONMENTAL ALLERGIES History of Any Multi-Drug Resistant Organisms: None Reported Past Surgical History: Appendectomy Additional Past Surgical History / Comment(s): COLONOSCOPY, D and C Additional Past Anesthesia/Blood Transfusion Reaction / Comment(s): HAS NEVER HAD GENERAL ANESTHESIA. Past Psychological History: No Psychological Hx Reported Smoking Status: Former smoker Past Alcohol Use History: Rare Additional Past Alcohol Use History / Comment(s): SMOKED FOR 50 YRS, ABOUT 1/2 PPD. Past Drug Use History: None Reported - Past Family History Mother Family Medical History: Dementia Father Family Medical History: Congestive Heart Failure (CHF), COPD, Diabetes Mellitus Medications and Allergies Home Medications Medication Instructions Recorded Confirmed Type Atorvastatin [Lipitor] 10 mg PO DAILY 08/23/21 03/18/24 History Levothyroxine Sodium [Synthroid] 88 mcg PO DAILY 03/18/24 03/18/24 History lisinopriL [Zestril] 20 mg PO DAILY 03/18/24 03/18/24 History Allergies Allergy/AdvReac Type Severity Reaction Status Date / Time No Known Allergies Allergy Verified 03/18/24 19:20 Physical Exam Vitals: Vital Signs Temp Pulse Pulse Resp BP BP Pulse Ox 03/19/24 14:00 76 19 117/81 94 L 03/19/24 13:45 75 12 131/74 95 03/19/24 13:30 73 12 101/41 96 03/19/24 13:15 64 23 88/39 93 L 03/19/24 13:00 71 21 83/43 94 L 03/19/24 12:45 71 16 114/39 97 03/19/24 12:30 71 15 88/44 94 L 03/19/24 12:15 62 18 90/45 93 L 03/19/24 12:12 98.0 F 62 22 90/45 92 L 03/19/24 10:00 97.6 F 22 90/64 96 03/19/24 09:57 65 18 90/64 98 03/19/24 09:45 77/51 03/19/24 09:39 65 18 77/51 98 03/19/24 09:30 70 18 93/51 98 03/19/24 09:15 76 18 80/42 98 03/19/24 09:00 67 18 82/48 98 03/19/24 08:45 62 18 79/22 98 03/19/24 08:30 69 18 79/39 98 03/19/24 08:15 65 18 88/39 98 03/19/24 08:00 71 87/37 03/19/24 07:44 63 18 84/40 98 03/19/24 07:00 90/44 03/19/24 06:45 95/50 03/19/24 05:45 79/44 03/19/24 05:30 86/44 03/19/24 05:00 89/51 03/19/24 04:00 98.5 F 63 16 85/46 98 03/19/24 02:30 91/55 03/19/24 01:57 82/39 03/19/24 01:54 78/41 03/19/24 01:22 81/41 03/19/24 01:15 86/44 03/19/24 00:23 97.6 F 71 16 90/48 95 03/18/24 22:05 67 18 98/49 03/18/24 21:44 69 16 100/63 95 03/18/24 20:35 66 18 81/41 93 L 03/18/24 18:21 98.0 F 69 14 89/53 97 03/18/24 15:25 97.6 F 65 14 93/55 95 Intake and Output 03/18/24 03/19/24 03/19/24 22:59 06:59 14:59 Intake Total 2539.398 Output Total 700 575 Balance -700 1964.398 Intake: IV 2500 Dextrose 5% in Water 1, 500 000 ml @ 100 mls/hr IV . [id number] SONIA with Sodium Bicarb (1 Meq/ml) 150 ml Rx#:[id number] Sodium Chloride 0.9% 1, 1000 000 ml @ 999 mls/hr IV . Q1H1M ONE Rx#:[id number] Sodium Chloride 0.9% 1, 1000 000 ml @ 999 mls/hr IV . Q1H1M STA Rx#:[id number] Intake, IV Titration 39.398 Amount Norepinephrine 4 mg In 39.398 Sodium Chloride 0.9% 250 ml @ 0.03 MCG/KG/MIN 7. 725 mls/hr IV .Q24H ONE Rx#:[id number] Output: Urine 700 575 Other: Voiding Method Indwelling Catheter Indwelling Catheter Weight 67.585 kg 67.585 kg patient is awake, comfortable, no acute distress. Alert oriented 3 Examination of the heart S1 and S2 Examination of the lungs bilateral breath sounds are heard Abdomen is soft nontender Examination of lower extremities shows no evidence of edema TALENT ADVISOR exam grossly intact Results - Lab Results Most recent lab results Calcium 7.1 mg/dL (8.4-10.2) L 03/19/24 09:33 Phosphorus 11.2 mg/dL (2.5-4.5) H* 03/19/24 09:33 Magnesium 2.0 mg/dL (1.6-2.3) 03/19/24 09:33 03/19/24 09:33 03/19/24 09:33 Assessment and Plan Assessment: 1. Acute kidney injury, ATN currently nonoliguric secondary to significant hypotension. No obstruction noted on ultrasound. UA shows trace protein and small blood and WBC 17. Urine eosinophils 3. Patient did admit that she started taking Prilosec about 3 months ago. Consider acute interstitial nephritis. renal function improved significantly with IV hydration and improvement in blood pressure. We will continue to monitor for need for steroids. 2. hypotension associated with volume depletion. Check random cortisol level. 3. Left knee pain status post evaluation by orthopedic surgery. No intervention from surgical standpoint. Mild left knee osteoarthritis noted. 4. severe and and gap metabolic acidosis secondary to acute kidney injury 5. Hyperphosphatemia associated with acute kidney injury 6. History of hypertension with blood pressure currently low and off of PITA inhibitor's. Plan: continue with IV hydration. check random cortisol level Repeat labs in a.m. Continue to hold PITA inhibitor's Avoid any nephrotoxic agents. Thank you for the consultation. We will continue to follow the patient with you during her hospitalization.
[2024-03-19 15:10] LABS: C Reactive Protein 13.3 mg/dL (<1.0)
[2024-03-19] MEDS: HEPARIN SODIUM,PORCINE 5,000 UNIT/ML 1 ML VIAL SQ SCH (16:17)
[2024-03-19] MEDS: TERBUTALINE 1 MG/ML VIAL SQ ONE (18:25)
[2024-03-19 20:01] LABS: Glucose,Whole Blood 166 mg/dL (70-110)
[2024-03-19] MEDS: NOREPINEPHRINE 4 MG in SODIUM CHLORIDE 0.9% 250 ML IV SCH (21:22)
[2024-03-19 23:30] LABS: Urine Alcohol Negative (Negative); Urine Barbiturate Negative (Negative); Urine Cocaine Negative (Negative); Urine Methadone Negative (Negative); Urine Opiates Negative (Negative); Urine Phencyclidine Negative (Negative)
[2024-03-20] MEDS: ONDANSETRON 4 MG/2 ML VIAL IVP PRN (06:04)
[2024-03-20 06:06] LABS: Basophils # (A) 0.1 k/uL (0-0.2); Basophils % (A) 1 %; Eosinophils # (A) 0.1 k/uL (0-0.7); Eosinophils % (A) 0 %; HCT 28.7 % (34.0-46.0); HGB 9.5 gm/dL (11.4-16.0); Lymphocytes # (A) 1.5 k/uL (1.0-4.8); Lymphocytes % (A) 13 %; MCH 27.6 pg (25.0-35.0); MCHC 33.2 g/dL (31.0-37.0); MCV 83.2 fL (80.0-100.0); Mean Platelet Volume 7.9; Monocytes # (A) 0.4 k/uL (0-1.0); Monocytes % (A) 4 %; Neutrophils # (A) 9.1 k/uL (1.3-7.7); Neutrophils % (A) 81 %; Platelet Count 397 k/uL (150-450); RBC 3.45 m/uL (3.80-5.40); RDW 13.8 % (11.5-15.5); WBC 11.3 k/uL (3.8-10.6)
[2024-03-20 06:16] LABS: African American GFR (CKD) 25 (>60 ml/min/1.73 sqM); Blood Urea Nitrogen 87 mg/dL (7-17); Calcium 6.8 mg/dL (8.4-10.2); Carbon Dioxide 23 mmol/L (22-30); Glucose 161 mg/dL (74-99); Non-African American GFR(CKD) 22 (>60 ml/min/1.73 sqM)
[2024-03-20 06:20] LABS: Anion Gap 11 mmol/L; Chloride 108 mmol/L (98-107); Potassium 2.9 mmol/L (3.5-5.1); Sodium 142 mmol/L (137-145)
[2024-03-20] MEDS ORDERED: Potassium Replacement Protocol 1 EACH MISC MISCELLANE PRN (06:57)
[2024-03-20] MEDS: POTASSIUM CHLORIDE ER 20 MEQ TAB.ER PO SCH ×2 (07:03→13:21)
--- NOTE | 2024-03-20 09:46 | CA ---
Transthoracic Echo Report Name: Eli Heller Age: 78 Gender: F : 1945 Exam Date: 03/19/2024 13:50 Exam Location: [facility] Ht (in): 63 Wt (lb): 149 Ordering Physician: Michael Post MD Attending/Referring Phys: Physics Instructor Roxana Jauregui RDCS Procedure CPT: Indications: Hypotension Cardiac Hx: Technical Quality: Technically difficult study Contrast 1: Definity Total Dose (mL): 2 Contrast 2: Total Dose (mL): MEASUREMENTS (Male / Female) Normal Values 2D ECHO LV Diastolic Diameter PLAX 3.7 cm 4.2 - 5.9 / 3.9 - 5.3 cm LV Systolic Diameter PLAX 2.0 cm IVS Diastolic Thickness 1.2 cm 0.6 - 1.0 / 0.6 - 0.9 cm LVPW Diastolic Thickness 1.1 cm 0.6 - 1.0 / 0.6 - 0.9 cm LV Relative Wall Thickness 0.6 RV Internal Dim ED PLAX 3.0 cm LA Volume 21.8 cm??? 18 - 58 / 22 - 52 cm??? LA Volume Index 12.5 cm???/m??? 16 - 28 cm???/m??? M-MODE Aortic Root Diameter MM 2.9 cm LA Systolic Diameter MM 3.0 cm LA Ao Ratio MM 1.0 DOPPLER AV Peak Velocity 160.3 cm/s AV Peak Gradient 10.3 mmHg AV Mean Velocity 102.1 cm/s AV Mean Gradient 4.9 mmHg AV Velocity Time Integral 23.3 cm LVOT Peak Velocity 140.7 cm/s LVOT Peak Gradient 7.9 mmHg LVOT Velocity Time Integral 29.1 cm MV Area PHT 3.2 cm??? Mitral E Point Velocity 71.3 cm/s Mitral A Point Velocity 100.0 cm/s Mitral E to A Ratio 0.7 MV Deceleration Time 233.7 ms MV E' Velocity 6.3 cm/s Mitral E to MV E' Ratio 11.3 TR Peak Velocity 142.1 cm/s TR Peak Gradient 8.1 mmHg Right Ventricular Systolic Press 13.1 mmHg FINDINGS Left Ventricle Mildly increased left ventricular wall thickness. Left ventricular cavity size normal. No obvious regional wall motion abnormalities. Left ventricular ejection fraction is estimated at 55-60%. Grade 1 diastolic dysfunction. Right Ventricle Normal right ventricular size and function. Right ventricular systolic pressure within normal limits. Right Atrium Right atrium not well visualized. Left Atrium Normal left atrial size. Mitral Valve Mitral valve not well visualized. No mitral stenosis, regurgitation or prolapse. Mild mitral annular calcification. Aortic Valve Aortic valve not well visualized. No aortic valve stenosis or regurgitation. Tricuspid Valve Tricuspid valve not well visualized. Mild tricuspid regurgitation. Pulmonic Valve Pulmonic valve not well visualized. Pericardium No pericardial effusion. Aorta Normal size aortic root and proximal ascending aorta. CONCLUSIONS Technically difficult study. Echo contrast was used. LV systolic function is normal. No wall motion abnormalities. Suboptimal Doppler study no pericardial effusion Previewed by: Dr. Luca March MD (Electronically Signed) Final Date: 20 Mar 2024 09:45
--- NOTE | 2024-03-20 11:36 | P.PN ---
Subjective Progress Note Date: 03/20/24 Principal diagnosis: Left knee pain; mild left knee osteoarthritis; quadriceps tendon strain Patient was seen at bedside this morning lying semirecumbent position in ICU. Patient says she is still having pain in the left knee and difficulty with ambulation. Patient says while resting in bed that she is not able to flex or extend the knee. Patient is looking forward to having an MRI of knee. Patient denies any other orthopedic complaints at this time. Objective - Vital Signs Vital signs: Vital Signs Temp 98.2 F 03/20/24 08:00 Pulse 72 03/20/24 10:15 Resp 23 03/20/24 10:15 BP 113/51 03/20/24 10:15 Pulse Ox 86 L 03/20/24 10:15 FiO2 Intake & Output 03/19/24 03/20/24 03/20/24 18:59 06:59 18:59 Intake Total 4647.677 1679.475 433.238 Output Total 1260 1800 550 Balance 3387.677 -120.525 -116.762 Weight 70.307 kg Intake: IV 4000 1400 275 Dextrose 5% in Water 1, 900 1300 200 000 ml @ 100 mls/hr IV . [id number] SONIA with Sodium Bicarb (1 Meq/ml) 150 ml Rx#:[id number] Piperacillin-Tazobactam 3 100 100 75 .375 gm In Sodium Chloride 0.9% 100 ml @ 25 mls/hr IVPB Q12HR SONIA Rx #:[id number] Sodium Chloride 0.9% 1, 2000 000 ml @ 999 mls/hr IV . Q1H1M ONE Rx#:[id number] Sodium Chloride 0.9% 1, 1000 000 ml @ 999 mls/hr IV . Q1H1M STA Rx#:[id number] Intake, IV Titration 147.677 279.475 38.238 Amount Norepinephrine 4 mg In 147.677 35.707 Sodium Chloride 0.9% 250 ml @ 0.03 MCG/KG/MIN 7. 725 mls/hr IV .Q24H ONE Rx#:[id number] Norepinephrine 4 mg In 243.768 38.238 Sodium Chloride 0.9% 250 ml @ 0.03 MCG/KG/MIN 7. 725 mls/hr IV .Q24H SONIA Rx#:[id number] Oral 500 120 Output: Urine 1260 1800 550 Other: Voiding Method Indwelling Catheter Indwelling Catheter Indwelling Catheter # Bowel Movements 1 - Exam Inspection: Very small nonraised area of erythema measuring about 2 x 1 cm over the patella on the left lower extremity. Negative for any ecchymosis or open wounds or open fractures. Negative for any abrasions surrounding the left knee. Positive for very mild swelling in the suprapatellar region. Sensation: Equal, symmetric, by intact throughout the upper and lower extremities. Palpation: Skin is lukewarm to the touch. Moderate to severe tenderness to patient directly over the left patella. Nontender to palpation throughout rest of left lower extremity exam. Nontender to patient over the medial and lateral compartments Range of motion: Patient has full range of motion throughout all joints and right lower extremity on exam. Patient holds left knee in about 10 degrees lacking full extension. Patient is unable to fully extend the left knee due to increasing pain and patient has pain when she attempts to flex the left knee. Patient does have good range of motion throughout left hip on exam. Patient is able to wiggle digits in bilateral lower extremities. On passive range of motion exam of left knee patient does have increased pain with flexion to about 45 degrees. Motor: 4/5 in all major motor groups in the right lower extremity. 3+/5 in resisted left hip flexion's extension and left knee flexion with extension. 4-/5 in resisted left ankle dorsi/plantarflexion. Neurovascular: Radial pulses intact, 2+ bilaterally. Cap refill under 3 seconds in digits of lower extremities Special test: Negative logroll maneuver bilaterally. Negative Homans bila terally. - Labs CBC & Chem 7: 03/20/24 05:36 03/20/24 05:36 Labs: Abnormal Lab Results - Last 24 Hours (Table) 03/19/24 03/19/24 03/19/24 Range/Units 09:33 09:33 10:20 WBC (3.8-10.6) k/uL RBC 3.54 L (3.80-5.40) m/uL Hgb 9.8 L D (11.4-16.0) gm/dL Hct 29.3 L (34.0-46.0) % Neutrophils # (1.3-7.7) k/uL ESR (0-30) mm/Hr Potassium (3.5-5.1) mmol/L Chloride (98-107) mmol/L Carbon Dioxide 13 L (22-30) mmol/L BUN 145 H* (7-17) mg/dL Creatinine 6.26 H (0.52-1.04) mg/dL Glucose (74-99) mg/dL POC Glucose (mg/dL) (70-110) mg/dL Osmolality 339 A* (275-295) mOsm/kg Calcium 7.1 L (8.4-10.2) mg/dL Phosphorus 11.2 H* (2.5-4.5) mg/dL C-Reactive Protein (<1.0) mg/dL Total Protein 6.2 L (6.3-8.2) g/dL Albumin 3.4 L (3.5-5.0) g/dL Cortisol (3.1-22.4) UG/DL Urine Protein (Negative) Urine Blood (Negative) Ur Leukocyte Esterase (Negative) Urine WBC (0-5) /hpf Urine Bacteria (None) /hpf Urine Mucus (None) /hpf Urine Osmolality 341 L (400-1100) mOsm/kg Ur Random Sodium (40-220) mmol/L 03/19/24 03/19/24 03/19/24 Range/Units 10:20 10:20 14:28 WBC (3.8-10.6) k/uL RBC (3.80-5.40) m/uL Hgb (11.4-16.0) gm/dL Hct (34.0-46.0) % Neutrophils # (1.3-7.7) k/uL ESR (0-30) mm/Hr Potassium (3.5-5.1) mmol/L Chloride (98-107) mmol/L Carbon Dioxide (22-30) mmol/L BUN (7-17) mg/dL Creatinine (0.52-1.04) mg/dL Glucose (74-99) mg/dL POC Glucose (mg/dL) (70-110) mg/dL Osmolality (275-295) mOsm/kg Calcium (8.4-10.2) mg/dL Phosphorus (2.5-4.5) mg/dL C-Reactive Protein 13.3 H (<1.0) mg/dL Total Protein (6.3-8.2) g/dL Albumin (3.5-5.0) g/dL Cortisol 27.9 H (3.1-22.4) UG/DL Urine Protein Trace H (Negative) Urine Blood Small H (Negative) Ur Leukocyte Esterase Moderate H (Negative) Urine WBC 17 H (0-5) /hpf Urine Bacteria Rare H (None) /hpf Urine Mucus Rare H (None) /hpf Urine Osmolality (400-1100) mOsm/kg Ur Random Sodium 28 L (40-220) mmol/L 03/19/24 03/19/24 03/20/24 Range/Units 14:28 19:59 05:36 WBC 11.3 H (3.8-10.6) k/uL RBC 3.45 L (3.80-5.40) m/uL Hgb 9.5 L (11.4-16.0) gm/dL Hct 28.7 L (34.0-46.0) % Neutrophils # 9.1 H (1.3-7.7) k/uL ESR 86 H (0-30) mm/Hr Potassium (3.5-5.1) mmol/L Chloride (98-107) mmol/L Carbon Dioxide (22-30) mmol/L BUN (7-17) mg/dL Creatinine (0.52-1.04) mg/dL Glucose (74-99) mg/dL POC Glucose (mg/dL) 166 H (70-110) mg/dL Osmolality (275-295) mOsm/kg Calcium (8.4-10.2) mg/dL Phosphorus (2.5-4.5) mg/dL C-Reactive Protein (<1.0) mg/dL Total Protein (6.3-8.2) g/dL Albumin (3.5-5.0) g/dL Cortisol (3.1-22.4) UG/DL Urine Protein (Negative) Urine Blood (Negative) Ur Leukocyte Esterase (Negative) Urine WBC (0-5) /hpf Urine Bacteria (None) /hpf Urine Mucus (None) /hpf Urine Osmolality (400-1100) mOsm/kg Ur Random Sodium (40-220) mmol/L 03/20/24 Range/Units 05:36 WBC (3.8-10.6) k/uL RBC (3.80-5.40) m/uL Hgb (11.4-16.0) gm/dL Hct (34.0-46.0) % Neutrophils # (1.3-7.7) k/uL ESR (0-30) mm/Hr Potassium 2.9 L (3.5-5.1) mmol/L Chloride 108 H (98-107) mmol/L Carbon Dioxide (22-30) mmol/L BUN 87 H (7-17) mg/dL Creatinine 2.15 H (0.52-1.04) mg/dL Glucose 161 H (74-99) mg/dL POC Glucose (mg/dL) (70-110) mg/dL Osmolality (275-295) mOsm/kg Calcium 6.8 L (8.4-10.2) mg/dL Phosphorus (2.5-4.5) mg/dL C-Reactive Protein (<1.0) mg/dL Total Protein (6.3-8.2) g/dL Albumin (3.5-5.0) g/dL Cortisol (3.1-22.4) UG/DL Urine Protein (Negative) Urine Blood (Negative) Ur Leukocyte Esterase (Negative) Urine WBC (0-5) /hpf Urine Bacteria (None) /hpf Urine Mucus (None) /hpf Urine Osmolality (400-1100) mOsm/kg Ur Random Sodium (40-220) mmol/L Assessment and Plan Assessment: 1. Left knee pain; mild left knee osteoarthritis; quadriceps tendon strain Plan: 1. Left knee pain; mild left knee osteoarthritis; quadriceps tendon strain - X- ray of the left knee does demonstrate small suprapatellar effusion. Positive for mild osteoarthritis in the medial and patellofemoral compartments. Negative for any fractures. Negative for any dislocation. Patient does have a history of gout. Low concern for septic knee at this time. ESR and CRP elevated. I did discuss the findings of the imaging and exam with my attending, Dr. Townsend. At this time we are not recommending any emergent orthopedic surgical intervention. We have ordered MRI left knee for further eval. We will continue conservative measures with the use of pain medication and PT/OT. We will await MRI results before proceeding with any potential intervention. We will continue to follow patient during her stay in the hospital. 2. Appreciate medical and pulmonology management 3. Pain management -Tylenol 4. DVT prophylaxis -heparin 5. GI prophylaxis recs 6. PT/OT - weight-bearing as tolerated with walker and assistance as needed 7. Encourage incentive spirometer use Time with Patient: Less than 30
--- NOTE | 2024-03-20 13:13 | P.PN ---
Subjective Progress Note Date: 03/20/24 patient is a 78-year-old lady with past medical history significant for hypertension, hypothyroidism who presented to the ER for left knee pain. Patient stated that she was all right 1 week back when she developed left knee pain after one of her dogs jumped on it. Patient stated following that she has been hobbling on her left knee. Denies taking any NSAIDs or ihgo-aoh-tyqurgc medications. There was no complaint of any fever or chills. Patient denies any shortness of breath. There is no complaint of nausea, vomiting abdominal pain. There is no complaint of lightheadedness or dizziness. Patient denies any altered bowel movements. Patient stated that she has been hydrating herself. Initial lab work done in the ER showed WBC 9.7, hemoglobin 12.4, platelet count 425, sodium 131, potassium 4.8, BUN 174, creatinine 1.94, glucose 105, phosphorus 21.3, magnesium 2.4, AST 14, ALT 14 UA negative for any infection EKG done in the ER showed heart rate of 67, no ST segment elevation or depress ion seen, no T-wave inversions seen. Chest x-ray done in the ER showed no definite pleural effusion. Clinical correlation recommended for early congestive heart failure CT abdomen pelvis done showed prominent loops of bowel within the pelvis. Small bowel loops are nondilated. Mild stricture could be considered Patient admitted to internal medicine service 03/20. Patient seen and examined.Blood work done this morning showed WBC 11.3. Hemoglobin 9.5, platelet count 397, sodium 142, potassium 2.9, BUN 87, creatinine 2.15, calcium 6.8. Potassium replacement ordered. Complaining of generalized body aches Complaining of left knee pain REVIEW OF SYSTEMS: CONSTITUTIONAL: No fever, no malaise,. CARDIOVASCULAR: No chest pain, no palpitations, no syncope. PULMONARY: No shortness of breath, no cough, GASTROINTESTINAL: No diarrhea, no nausea, no vomiting, no abdominal pain. NEUROLOGICAL: No headaches, no weakness, PHYSICAL EXAMINATION: GENERAL: The patient is alert and oriented x3, not in any acute distress. Well developed, well nourished. HEENT: Pupils are round and equally reacting to light. EOMI. No scleral icterus. No conjunctival pallor. Normocephalic, atraumatic. No pharyngeal erythema. No thyromegaly. CARDIOVASCULAR: S1 and S2 present. No murmurs, rubs, or gallops. PULMONARY: Chest is clear to auscultation, no wheezing or crackles. ABDOMEN: Soft, nontender, nondistended, normoactive bowel sounds. No palpable organomegaly. MUSCULOSKELETAL: No joint swelling or deformity. EXTREMITIES: No cyanosis, clubbing, or pedal edema. NEUROLOGICAL: Gross neurological examination did not reveal any focal deficits. SKIN: No rashes. Assessment and plan Acute kidney injury Anion gap metabolic acidosis Left knee pain Hypotension Hyperphosphatemia Hypothyroidism History of hypertension Monitor vital signs Monitor CBC Monitor CMP Continue telemetry monitoring Ordered blood cultures Ordered 2D Avoid nephrotoxic agent Strict I's and O's, daily weights Continue IV fluids Continue IV Zosyn Potassium placement ordered Nephrology following Orthopedic eval the patient, do not think there is infection of the left knee joint, recommend conservative management, ordered MRI of left knee ICU following Labs and medication were reviewed.. Continue same treatment. Continue with symptomatic treatment. Resume home medication. Monitor labs and vitals. DVT and GI prophylaxis. Further recommendations as per clinical course of the patient Dictation was produced using [employer] dictation software. please excuse any grammatical, word or spelling errors. Objective - Vital Signs Vital signs: Vital Signs Temp 97.7 F 03/20/24 04:00 Pulse 70 03/20/24 07:45 Resp 20 03/20/24 07:45 BP 105/65 03/20/24 07:45 Pulse Ox 94 L 03/20/24 07:45 FiO2 Intake & Output 03/19/24 03/20/24 03/20/24 18:59 06:59 18:59 Intake Total 4647.677 1679.475 22.788 Output Total 1260 1800 Balance 3387.677 -120.525 22.788 Weight 70.307 kg Intake: IV 4000 1400 Dextrose 5% in Water 1, 900 1300 000 ml @ 100 mls/hr IV . [id number] SONIA with Sodium Bicarb (1 Meq/ml) 150 ml Rx#:[id number] Piperacillin-Tazobactam 3 100 100 .375 gm In Sodium Chloride 0.9% 100 ml @ 25 mls/hr IVPB Q12HR SONIA Rx #:[id number] Sodium Chloride 0.9% 1, 2000 000 ml @ 999 mls/hr IV . Q1H1M ONE Rx#:[id number] Sodium Chloride 0.9% 1, 1000 000 ml @ 999 mls/hr IV . Q1H1M STA Rx#:[id number] Intake, IV Titration 147.677 279.475 22.788 Amount Norepinephrine 4 mg In 147.677 35.707 Sodium Chloride 0.9% 250 ml @ 0.03 MCG/KG/MIN 7. 725 mls/hr IV .Q24H ONE Rx#:[id number] Norepinephrine 4 mg In 243.768 22.788 Sodium Chloride 0.9% 250 ml @ 0.03 MCG/KG/MIN 7. 725 mls/hr IV .Q24H SONIA Rx#:[id number] Oral 500 Output: Urine 1260 1800 Other: Voiding Method Indwelling Catheter Indwelling Catheter # Bowel Movements 1 - Labs CBC & Chem 7: 03/20/24 05:36 03/20/24 11:52 Labs: Abnormal Lab Results - Last 24 Hours (Table) 03/19/24 03/19/24 03/19/24 Range/Units 09:33 09:33 10:20 WBC (3.8-10.6) k/uL RBC 3.54 L (3.80-5.40) m/uL Hgb 9.8 L D (11.4-16.0) gm/dL Hct 29.3 L (34.0-46.0) % Neutrophils # (1.3-7.7) k/uL ESR (0-30) mm/Hr Potassium (3.5-5.1) mmol/L Chloride (98-107) mmol/L Carbon Dioxide 13 L (22-30) mmol/L BUN 145 H* (7-17) mg/dL Creatinine 6.26 H (0.52-1.04) mg/dL Glucose (74-99) mg/dL POC Glucose (mg/dL) (70-110) mg/dL Osmolality 339 A* (275-295) mOsm/kg Calcium 7.1 L (8.4-10.2) mg/dL Phosphorus 11.2 H* (2.5-4.5) mg/dL C-Reactive Protein (<1.0) mg/dL Total Protein 6.2 L (6.3-8.2) g/dL Albumin 3.4 L (3.5-5.0) g/dL Cortisol (3.1-22.4) UG/DL Urine Protein (Negative) Urine Blood (Negative) Ur Leukocyte Esterase (Negative) Urine WBC (0-5) /hpf Urine Bacteria (None) /hpf Urine Mucus (None) /hpf Urine Osmolality 341 L (400-1100) mOsm/kg Ur Random Sodium (40-220) mmol/L 03/19/24 03/19/24 03/19/24 Range/Units 10:20 10:20 14:28 WBC (3.8-10.6) k/uL RBC (3.80-5.40) m/uL Hgb (11.4-16.0) gm/dL Hct (34.0-46.0) % Neutrophils # (1.3-7.7) k/uL ESR (0-30) mm/Hr Potassium (3.5-5.1) mmol/L Chloride (98-107) mmol/L Carbon Dioxide (22-30) mmol/L BUN (7-17) mg/dL Creatinine (0.52-1.04) mg/dL Glucose (74-99) mg/dL POC Glucose (mg/dL) (70-110) mg/dL Osmolality (275-295) mOsm/kg Calcium (8.4-10.2) mg/dL Phosphorus (2.5-4.5) mg/dL C-Reactive Protein 13.3 H (<1.0) mg/dL Total Protein (6.3-8.2) g/dL Albumin (3.5-5.0) g/dL Cortisol 27.9 H (3.1-22.4) UG/DL Urine Protein Trace H (Negative) Urine Blood Small H (Negative) Ur Leukocyte Esterase Moderate H (Negative) Urine WBC 17 H (0-5) /hpf Urine Bacteria Rare H (None) /hpf Urine Mucus Rare H (None) /hpf Urine Osmolality (400-1100) mOsm/kg Ur Random Sodium 28 L (40-220) mmol/L 03/19/24 03/19/24 03/20/24 Range/Units 14:28 19:59 05:36 WBC 11.3 H (3.8-10.6) k/uL RBC 3.45 L (3.80-5.40) m/uL Hgb 9.5 L (11.4-16.0) gm/dL Hct 28.7 L (34.0-46.0) % Neutrophils # 9.1 H (1.3-7.7) k/uL ESR 86 H (0-30) mm/Hr Potassium (3.5-5.1) mmol/L Chloride (98-107) mmol/L Carbon Dioxide (22-30) mmol/L BUN (7-17) mg/dL Creatinine (0.52-1.04) mg/dL Glucose (74-99) mg/dL POC Glucose (mg/dL) 166 H (70-110) mg/dL Osmolality (275-295) mOsm/kg Calcium (8.4-10.2) mg/dL Phosphorus (2.5-4.5) mg/dL C-Reactive Protein (<1.0) mg/dL Total Protein (6.3-8.2) g/dL Albumin (3.5-5.0) g/dL Cortisol (3.1-22.4) UG/DL Urine Protein (Negative) Urine Blood (Negative) Ur Leukocyte Esterase (Negative) Urine WBC (0-5) /hpf Urine Bacteria (None) /hpf Urine Mucus (None) /hpf Urine Osmolality (400-1100) mOsm/kg Ur Random Sodium (40-220) mmol/L 03/20/24 Range/Units 05:36 WBC (3.8-10.6) k/uL RBC (3.80-5.40) m/uL Hgb (11.4-16.0) gm/dL Hct (34.0-46.0) % Neutrophils # (1.3-7.7) k/uL ESR (0-30) mm/Hr Potassium 2.9 L (3.5-5.1) mmol/L Chloride 108 H (98-107) mmol/L Carbon Dioxide (22-30) mmol/L BUN 87 H (7-17) mg/dL Creatinine 2.15 H (0.52-1.04) mg/dL Glucose 161 H (74-99) mg/dL POC Glucose (mg/dL) (70-110) mg/dL Osmolality (275-295) mOsm/kg Calcium 6.8 L (8.4-10.2) mg/dL Phosphorus (2.5-4.5) mg/dL C-Reactive Protein (<1.0) mg/dL Total Protein (6.3-8.2) g/dL Albumin (3.5-5.0) g/dL Cortisol (3.1-22.4) UG/DL Urine Protein (Negative) Urine Blood (Negative) Ur Leukocyte Esterase (Negative) Urine WBC (0-5) /hpf Urine Bacteria (None) /hpf Urine Mucus (None) /hpf Urine Osmolality (400-1100) mOsm/kg Ur Random Sodium (40-220) mmol/L
[2024-03-20] MEDS: LACTATED RINGERS 1,000 ML IV SCH (13:22)
--- NOTE | 2024-03-20 13:58 | P.PN ---
Subjective Patient is seen for follow-up for acute kidney injury. Renal function has improved significantly. Patient has had good urine output. Patient remains on Levophed. Serum potassium 2.9, currently being replaced. Creatinine is down to 2.1. Objective - Vital Signs Vital signs: Vital Signs Temp 98.3 F 03/20/24 12:00 Pulse 75 03/20/24 13:30 Resp 22 03/20/24 13:30 BP 90/55 03/20/24 13:30 Pulse Ox 93 L 03/20/24 13:30 FiO2 Intake & Output 03/19/24 03/20/24 03/20/24 18:59 06:59 18:59 Intake Total 4647.677 1679.475 664.052 Output Total 1260 1800 1000 Balance 3387.677 -120.525 -335.948 Weight 70.307 kg Intake: IV 4000 1400 325 Dextrose 5% in Water 1, 900 1300 200 000 ml @ 100 mls/hr IV . [id number] SONIA with Sodium Bicarb (1 Meq/ml) 150 ml Rx#:[id number] Piperacillin-Tazobactam 3 100 100 125 .375 gm In Sodium Chloride 0.9% 100 ml @ 25 mls/hr IVPB Q12HR SONIA Rx #:[id number] Sodium Chloride 0.9% 1, 2000 000 ml @ 999 mls/hr IV . Q1H1M ONE Rx#:[id number] Sodium Chloride 0.9% 1, 1000 000 ml @ 999 mls/hr IV . Q1H1M STA Rx#:[id number] Intake, IV Titration 147.677 279.475 59.052 Amount Norepinephrine 4 mg In 147.677 35.707 Sodium Chloride 0.9% 250 ml @ 0.03 MCG/KG/MIN 7. 725 mls/hr IV .Q24H ONE Rx#:[id number] Norepinephrine 4 mg In 243.768 59.052 Sodium Chloride 0.9% 250 ml @ 0.03 MCG/KG/MIN 7. 725 mls/hr IV .Q24H SONIA Rx#:[id number] Oral 500 280 Output: Urine 1260 1800 1000 Other: Voiding Method Indwelling Catheter Indwelling Catheter Indwelling Catheter # Bowel Movements 1 1 - Exam patient is awake, comfortable, no acute distress. Alert oriented 3 Examination of the heart S1 and S2 Examination of the lungs bilateral breath sounds are heard Abdomen is soft nontender Examination of lower extremities shows no evidence of edema [employer] exam grossly intact - Labs CBC & Chem 7: 03/20/24 05:36 03/20/24 11:52 Labs: Abnormal Lab Results - Last 24 Hours (Table) 03/19/24 03/19/24 03/19/24 Range/Units 09:33 10:20 10:20 WBC (3.8-10.6) k/uL RBC (3.80-5.40) m/uL Hgb (11.4-16.0) gm/dL Hct (34.0-46.0) % Neutrophils # (1.3-7.7) k/uL ESR (0-30) mm/Hr Potassium (3.5-5.1) mmol/L Chloride (98-107) mmol/L BUN (7-17) mg/dL Creatinine (0.52-1.04) mg/dL Glucose (74-99) mg/dL POC Glucose (mg/dL) (70-110) mg/dL Osmolality 339 A* (275-295) mOsm/kg Calcium (8.4-10.2) mg/dL C-Reactive Protein (<1.0) mg/dL Cortisol (3.1-22.4) UG/DL Urine Protein (Negative) Urine Blood (Negative) Ur Leukocyte Esterase (Negative) Urine WBC (0-5) /hpf Urine Bacteria (None) /hpf Urine Mucus (None) /hpf Urine Osmolality 341 L (400-1100) mOsm/kg Ur Random Sodium 28 L (40-220) mmol/L 03/19/24 03/19/24 03/19/24 Range/Units 10:20 14:28 14:28 WBC (3.8-10.6) k/uL RBC (3.80-5.40) m/uL Hgb (11.4-16.0) gm/dL Hct (34.0-46.0) % Neutrophils # (1.3-7.7) k/uL ESR 86 H (0-30) mm/Hr Potassium (3.5-5.1) mmol/L Chloride (98-107) mmol/L BUN (7-17) mg/dL Creatinine (0.52-1.04) mg/dL Glucose (74-99) mg/dL POC Glucose (mg/dL) (70-110) mg/dL Osmolality (275-295) mOsm/kg Calcium (8.4-10.2) mg/dL C-Reactive Protein 13.3 H (<1.0) mg/dL Cortisol 27.9 H (3.1-22.4) UG/DL Urine Protein Trace H (Negative) Urine Blood Small H (Negative) Ur Leukocyte Esterase Moderate H (Negative) Urine WBC 17 H (0-5) /hpf Urine Bacteria Rare H (None) /hpf Urine Mucus Rare H (None) /hpf Urine Osmolality (400-1100) mOsm/kg Ur Random Sodium (40-220) mmol/L 03/19/24 03/20/24 03/20/24 Range/Units 19:59 05:36 05:36 WBC 11.3 H (3.8-10.6) k/uL RBC 3.45 L (3.80-5.40) m/uL Hgb 9.5 L (11.4-16.0) gm/dL Hct 28.7 L (34.0-46.0) % Neutrophils # 9.1 H (1.3-7.7) k/uL ESR (0-30) mm/Hr Potassium 2.9 L (3.5-5.1) mmol/L Chloride 108 H (98-107) mmol/L BUN 87 H (7-17) mg/dL Creatinine 2.15 H (0.52-1.04) mg/dL Glucose 161 H (74-99) mg/dL POC Glucose (mg/dL) 166 H (70-110) mg/dL Osmolality (275-295) mOsm/kg Calcium 6.8 L (8.4-10.2) mg/dL C-Reactive Protein (<1.0) mg/dL Cortisol (3.1-22.4) UG/DL Urine Protein (Negative) Urine Blood (Negative) Ur Leukocyte Esterase (Negative) Urine WBC (0-5) /hpf Urine Bacteria (None) /hpf Urine Mucus (None) /hpf Urine Osmolality (400-1100) mOsm/kg Ur Random Sodium (40-220) mmol/L 03/20/24 Range/Units 11:52 WBC (3.8-10.6) k/uL RBC (3.80-5.40) m/uL Hgb (11.4-16.0) gm/dL Hct (34.0-46.0) % Neutrophils # (1.3-7.7) k/uL ESR (0-30) mm/Hr Potassium 3.2 L (3.5-5.1) mmol/L Chloride (98-107) mmol/L BUN (7-17) mg/dL Creatinine (0.52-1.04) mg/dL Glucose (74-99) mg/dL POC Glucose (mg/dL) (70-110) mg/dL Osmolality (275-295) mOsm/kg Calcium (8.4-10.2) mg/dL C-Reactive Protein (<1.0) mg/dL Cortisol (3.1-22.4) UG/DL Urine Protein (Negative) Urine Blood (Negative) Ur Leukocyte Esterase (Negative) Urine WBC (0-5) /hpf Urine Bacteria (None) /hpf Urine Mucus (None) /hpf Urine Osmolality (400-1100) mOsm/kg Ur Random Sodium (40-220) mmol/L Assessment and Plan Assessment: 1. Acute kidney injury, ATN currently nonoliguric secondary to significant hypotension. No obstruction noted on ultrasound. UA shows trace protein and small blood and WBC 17. Urine eosinophils 3. Patient did admit that she started taking Prilosec about 3 months ago. Consider acute interstitial nephritis. renal function improved significantly with IV hydration and improvement in blood pressure. We will continue to monitor for need for steroids. 2. Hypotension associated with volume depletion. Random cortisol level not low. 3. Left knee pain status post evaluation by orthopedic surgery. No intervention from surgical standpoint. Mild left knee osteoarthritis noted. 4. Severe anion gap metabolic acidosis secondary to acute kidney injury 5. Hyperphosphatemia associated with acute kidney injury 6. History of hypertension with blood pressure currently low and off of PITA inhibitor's. Plan: continue with IV hydration. D/c IV bicarb. Replace potassium aggressively.
[2024-03-20 15:02] LABS: Magnesium 1.4 mg/dL (1.6-2.3)
[2024-03-20] MEDS ORDERED: Magnesium Replacement Protocol 1 EACH MISC MISCELLANE PRN (15:04)
--- NOTE | 2024-03-20 15:06 | P.PN ---
Subjective Progress Note Date: 03/20/24 Principal diagnosis: Acute renal failure This is a 78-year-old female, history of hypertension, and history of hypothyroidism, patient is primarily a patient of Dr. Choe, and she is today pH of Dr. Burton in the past. Patient came in for evaluation of left knee pain which she had for almost over a week. She had no symptoms of shortness of breath, no cough no wheezing no chest pain. No abdominal pain, workup in the ER revealed significant abnormal labs including acute renal failure with BUN as high as 174 and creatinine of 11.9. Patient was also noted to be hypotensive, she was given fluids and placed on norepinephrine at 0.03 mcg/kg/min. In the meantime the patient was noted to be acidotic and surprisingly did not have any symptoms of shortness of breath, patient was placed on a bicarb drip at 100 cc/h, she received a total of 4 L of fluids upon presentation, blood pressure remains soft, and she is requiring norepinephrine. Patient denies any previous kidney injury, but she was told in the past not to take any nonsteroidal anti- inflammatory drugs, patient has been taking mostly Tylenol. Has not taken any nonsteroidal anti-inflammatory drugs in the last 5 months. Normally the patient is on lisinopril at 20 mg daily, she is also on levothyroxine 88 mcg daily, patient is on atorvastatin 10 mg daily considering her hypotension and requirement for pressors, and spite of fluids given, I was asked to see the patient in consultation, and I did see her down in the ER, will recommend admission to the ICU, nephrology has already seen the patient on consultation, and patient will continue with IV fluids, she will receive empiric antibiotics, will arrange for x-rays of her left knee, and will arrange for orthopedic evaluation of the left knee pain. CT of the abdomen pelvis showed no evidence of hydronephrosis, no masses, he had a nonobstructing calculus 0.2 cm calcification within the mid left renal pelvis, chest x-ray showed slight prominence of the pulmonary vasculature otherwise unremarkable. No pleural effusion, no infiltrate ultrasound of abdomen and pelvis showed no acute process Patient was reevaluated today on 03/20/2024, patient remains in the ICU, remains on LR at 100 cc/h, she is off bicarb drip, still requiring norepinephrine at 0.03 mcg/kg/min. Her creatinine has gone down from 11.9 on admission down to 2.15 today. Patient continues to have good urine output 100 cc/h. She was seen by orthopedics for her left knee pain, MRI is pending. No plans to have arthrocentesis at this point, patient remains empirically on Zosyn. Considering the improvement dramatically with fluids and with norepinephrine, I believe the patient must have had acute tubular necrosis with nonoliguric renal failure secondary to hypotension. Again I strongly doubt sepsis but is not entirely ruled out, overall the patient is making significant improvement in the last 24 hours, and she continues to improve WBC count is 11.3 hemoglobin 9.5 potassium is 3.2 BUN is 87 creatinine 2.1, C-reactive protein is elevated at 13.3 her cortisol level is normal. Magnesium is 1.4 Objective - Vital Signs Vital signs: Vital Signs Temp 98.3 F 03/20/24 12:00 Pulse 73 03/20/24 14:45 Resp 13 03/20/24 14:45 BP 96/52 03/20/24 14:45 Pulse Ox 95 03/20/24 14:45 FiO2 Intake & Output 03/19/24 03/20/24 03/20/24 18:59 06:59 18:59 Intake Total 4647.677 1679.475 664.052 Output Total 1260 1800 1150 Balance 3387.677 -120.525 -485.948 Weight 70.307 kg Intake: IV 4000 1400 325 Dextrose 5% in Water 1, 900 1300 200 000 ml @ 100 mls/hr IV . [id number] SONIA with Sodium Bicarb (1 Meq/ml) 150 ml Rx#:[id number] Piperacillin-Tazobactam 3 100 100 125 .375 gm In Sodium Chloride 0.9% 100 ml @ 25 mls/hr IVPB Q12HR SONIA Rx #:[id number] Sodium Chloride 0.9% 1, 2000 000 ml @ 999 mls/hr IV . Q1H1M ONE Rx#:[id number] Sodium Chloride 0.9% 1, 1000 000 ml @ 999 mls/hr IV . Q1H1M STA Rx#:[id number] Intake, IV Titration 147.677 279.475 59.052 Amount Norepinephrine 4 mg In 147.677 35.707 Sodium Chloride 0.9% 250 ml @ 0.03 MCG/KG/MIN 7. 725 mls/hr IV .Q24H ONE Rx#:[id number] Norepinephrine 4 mg In 243.768 59.052 Sodium Chloride 0.9% 250 ml @ 0.03 MCG/KG/MIN 7. 725 mls/hr IV .Q24H SONIA Rx#:[id number] Oral 500 280 Output: Urine 1260 1800 1150 Other: Voiding Method Indwelling Catheter Indwelling Catheter Indwelling Catheter # Bowel Movements 1 1 - Exam General: The patient is awake and alert, in no distress, and does not appear acutely ill. On room air Skin: Skin is warm and dry and no rashes or lesions are noted. Eye: Pupils are equal, round and reactive to light, extra-ocular movements are intact; there is normal conjunctiva bilaterally. Ears, nose, mouth and throat: There are moist mucous membranes and no oral lesions. Neck: The neck is supple, there is no tenderness or JVD. Cardiovascular: There is a regular rate and rhythm. No murmur, rub or gallop is appreciated. Respiratory: Symmetrical chest expansion, clear breath sound bilaterally, no crackles rhonchi or wheezes Gastrointestinal: Soft, non-distended, non-tender abdomen without masses or organomegaly noted. There is no rebound or guarding present. Bowel sounds are unremarkable. Musculoskeletal: Left knee is warm and tender but no erythema. Neurological: Alert oriented x 3 no gross focal deficit Psychiatric: Normal mood, affect and no mental status examination. - Labs CBC & Chem 7: 03/20/24 05:36 03/20/24 11:52 Labs: Abnormal Lab Results - Last 24 Hours (Table) 03/19/24 03/19/24 03/19/24 Range/Units 09:33 10:20 10:20 WBC (3.8-10.6) k/uL RBC (3.80-5.40) m/uL Hgb (11.4-16.0) gm/dL Hct (34.0-46.0) % Neutrophils # (1.3-7.7) k/uL ESR (0-30) mm/Hr Potassium (3.5-5.1) mmol/L Chloride (98-107) mmol/L BUN (7-17) mg/dL Creatinine (0.52-1.04) mg/dL Glucose (74-99) mg/dL POC Glucose (mg/dL) (70-110) mg/dL Osmolality 339 A* (275-295) mOsm/kg Calcium (8.4-10.2) mg/dL C-Reactive Protein (<1.0) mg/dL Cortisol (3.1-22.4) UG/DL Urine Osmolality 341 L (400-1100) mOsm/kg Ur Random Sodium 28 L (40-220) mmol/L 03/19/24 03/19/24 03/19/24 Range/Units 14:28 14:28 19:59 WBC (3.8-10.6) k/uL RBC (3.80-5.40) m/uL Hgb (11.4-16.0) gm/dL Hct (34.0-46.0) % Neutrophils # (1.3-7.7) k/uL ESR 86 H (0-30) mm/Hr Potassium (3.5-5.1) mmol/L Chloride (98-107) mmol/L BUN (7-17) mg/dL Creatinine (0.52-1.04) mg/dL Glucose (74-99) mg/dL POC Glucose (mg/dL) 166 H (70-110) mg/dL Osmolality (275-295) mOsm/kg Calcium (8.4-10.2) mg/dL C-Reactive Protein 13.3 H (<1.0) mg/dL Cortisol 27.9 H (3.1-22.4) UG/DL Urine Osmolality (400-1100) mOsm/kg Ur Random Sodium (40-220) mmol/L 03/20/24 03/20/24 03/20/24 Range/Units 05:36 05:36 11:52 WBC 11.3 H (3.8-10.6) k/uL RBC 3.45 L (3.80-5.40) m/uL Hgb 9.5 L (11.4-16.0) gm/dL Hct 28.7 L (34.0-46.0) % Neutrophils # 9.1 H (1.3-7.7) k/uL ESR (0-30) mm/Hr Potassium 2.9 L 3.2 L (3.5-5.1) mmol/L Chloride 108 H (98-107) mmol/L BUN 87 H (7-17) mg/dL Creatinine 2.15 H (0.52-1.04) mg/dL Glucose 161 H (74-99) mg/dL POC Glucose (mg/dL) (70-110) mg/dL Osmolality (275-295) mOsm/kg Calcium 6.8 L (8.4-10.2) mg/dL C-Reactive Protein (<1.0) mg/dL Cortisol (3.1-22.4) UG/DL Urine Osmolality (400-1100) mOsm/kg Ur Random Sodium (40-220) mmol/L Assessment and Plan Assessment: Impression: Acute renal failure,/acute kidney injury most likely secondary to acute tubular necrosis related to hypotension on presentation. Possible profound dehydration, improving and resolving with hydration and with blood pressure support using norepinephrine Left knee pain, possible septic arthritis. Being addressed by orthopedics, septic arthritis is felt to be less likely by orthopedics on the case Acute anion gap metabolic acidosis secondary to acute renal failure. Resolved. History of benign essential hypertension Dyslipidemia History of hypothyroidism Recommendation: Continue to monitor in the ICU Continue IV fluids and continue norepinephrine and titrate accordingly Discontinued bicarb already GI and DVT prophylaxis Continue to hold lisinopril Continue antibiotics empirically once the cultures are all back negative could discontinue Zosyn Time with Patient: Less than 30
[2024-03-20] MEDS: MAGNESIUM SULFATE-D5W PMX 1 GM in DEXTROSE/WATER 1 100ML.BAG IVPB SCH (15:33)
[2024-03-20] MEDS: POTASSIUM CHLORIDE ER 20 MEQ TAB.ER PO STA (18:22)
[2024-03-21 06:21] LABS: Basophils # (A) 0.1 k/uL (0-0.2); Basophils % (A) 1 %; Eosinophils # (A) 0.1 k/uL (0-0.7); Eosinophils % (A) 1 %; HCT 27.1 % (34.0-46.0); HGB 8.6 gm/dL (11.4-16.0); Lymphocytes # (A) 1.7 k/uL (1.0-4.8); Lymphocytes % (A) 17 %; MCH 27.7 pg (25.0-35.0); MCHC 31.8 g/dL (31.0-37.0); MCV 86.9 fL (80.0-100.0); Mean Platelet Volume 7.8; Monocytes # (A) 0.4 k/uL (0-1.0); Monocytes % (A) 4 %; Neutrophils # (A) 7.4 k/uL (1.3-7.7); Neutrophils % (A) 77 %; Platelet Count 333 k/uL (150-450); RBC 3.12 m/uL (3.80-5.40); RDW 13.9 % (11.5-15.5); WBC 9.6 k/uL (3.8-10.6)
[2024-03-21 07:04] LABS: ALT 10 U/L (4-34); AST 16 U/L (14-36); African American GFR (CKD) 49 (>60 ml/min/1.73 sqM); Albumin 2.9 g/dL (3.5-5.0); Alkaline Phosphatase 83 U/L (38-126); Anion Gap 5 mmol/L; Blood Urea Nitrogen 38 mg/dL (7-17); Calcium 7.5 mg/dL (8.4-10.2); Carbon Dioxide 28 mmol/L (22-30); Chloride 109 mmol/L (98-107); Glucose 94 mg/dL (74-99); Magnesium 1.8 mg/dL (1.6-2.3); Non-African American GFR(CKD) 43 (>60 ml/min/1.73 sqM); Potassium 3.7 mmol/L (3.5-5.1); Sodium 142 mmol/L (137-145); Total Bilirubin 0.5 mg/dL (0.2-1.3); Total Protein 5.4 g/dL (6.3-8.2)
[2024-03-21] MEDS ORDERED: POTASSIUM CHLORIDE ER 20 MEQ TAB.ER PO SCH (08:00)
[2024-03-21] MEDS: POTASSIUM CHLORIDE ER 20 MEQ TAB.ER PO SCH (08:35)
[2024-03-21] MEDS: MAGNESIUM SULFATE-D5W PMX 1 GM in DEXTROSE/WATER 1 100ML.BAG IVPB ONE (08:37)
[2024-03-21] MEDS: methylPREDNISolone ACETATE 80 MG/ML 1 ML VIAL INTRABURSA STA (09:14)
--- NOTE | 2024-03-21 09:29 | P.OP ---
Date of Procedure: 03/21/24 Preoperative Diagnosis: Left knee effusion/synovitis Postoperative Diagnosis: Same Procedure(s) Performed: Left knee aspiration/cortisone injection Anesthesia: local Surgeon: Félix Townsend Estimated Blood Loss (ml): 0 Pathology: other (Cell count/crystals/cultures) Condition: stable Disposition: no change Indications for Procedure: The patient is a 78-year-old female who presents with progressive left knee pain and swelling. She has a history of gout and currently has a flareup in her left foot as well as her left knee. A discussion of the risks and benefits of aspiration with cortisone injection was made with patient. She opted to proceed. Informed consent was obtained. Operative Findings: As below Description of Procedure: The left knee was then prepped along the lateral aspect with Betadine and alcohol. 2 cc of 1% lidocaine was injected. 18 cc of serous joint fluid was aspirated. This was sent for cell count with differential, cultures/Gram stain, and crystal analysis. The patient tolerated the procedure well. There were no complications. There was no blood loss.
--- NOTE | 2024-03-21 09:29 | P.PN ---
Subjective Progress Note Date: 03/21/24 Principal diagnosis: Left knee pain; mild left knee osteoarthritis; quadriceps tendon strain Patient was seen at bedside this morning lying semirecumbent position in ICU. Patient says she is still having pain in the left knee and difficulty with ambulation. Patient says while resting in bed that she is not able to flex or extend the knee. Patient says she has had a difficult time getting up out of bed. She says she has been trying to move the leg while resting in bed but has been having a difficult time. patient denies any other orthopedic complaints at this time. Objective - Vital Signs Vital signs: Vital Signs Temp 98.6 F 03/21/24 04:00 Pulse 65 03/21/24 07:00 Resp 14 03/21/24 07:00 BP 98/55 03/21/24 07:00 Pulse Ox 96 03/21/24 07:00 FiO2 Intake & Output 03/20/24 03/21/24 03/21/24 18:59 06:59 18:59 Intake Total 261.366 9203 100 Output Total 1550 780 100 Balance -391.869 9048 0 Intake: IV 325 1200 100 Dextrose 5% in Water 1, 200 000 ml @ 100 mls/hr IV . [id number] SONIA with Sodium Bicarb (1 Meq/ml) 150 ml Rx#:[id number] Lactated Ringers 1,000 ml 1100 100 @ 100 mls/hr IV .Q10H SONIA Rx#:[id number] Piperacillin-Tazobactam 3 125 100 .375 gm In Sodium Chloride 0.9% 100 ml @ 25 mls/hr IVPB Q12HR SONIA Rx #:[id number] Intake, IV Titration 64.889 1200 Amount Lactated Ringers 1,000 ml 1200 @ 100 mls/hr IV .Q10H SONIA Rx#:[id number] Norepinephrine 4 mg In 64.889 Sodium Chloride 0.9% 250 ml @ 0.03 MCG/KG/MIN 7. 725 mls/hr IV .Q24H SONIA Rx#:[id number] Oral 400 Output: Urine 1550 780 100 Other: Voiding Method Indwelling Catheter Indwelling Catheter # Bowel Movements 1 1 - Exam Inspection: Very small nonraised area of erythema measuring about 2 x 1 cm over the patella on the left lower extremity. Negative for any ecchymosis or open wounds or open fractures. Negative for any abrasions surrounding the left knee. Positive for very mild swelling in the suprapatellar region. left great toe erythematous and painful to touch over MTPJ and extending distally. Patient has gout history Sensation: Equal, symmetric, by intact throughout the upper and lower extremities. Palpation: Skin is lukewarm to the touch. Moderate to severe tenderness to patient directly over the left patella. Nontender to palpation throughout rest of left lower extremity exam. Nontender to patient over the medial and lateral compartments Range of motion: Patient has full range of motion throughout all joints and right lower extremity on exam. Patient holds left knee in about 10 degrees lacking full extension. Patient is unable to fully extend the left knee due to increasing pain and patient has pain when she attempts to flex the left knee. Patient does have good range of motion throughout left hip on exam. Patient is able to wiggle digits in bilateral lower extremities. On passive range of motion exam of left knee patient does have increased pain with flexion to about 45 degrees. Motor: 4/5 in all major motor groups in the right lower extremity. 3+/5 in resisted left hip flexion's extension and left knee flexion with extension. 4-/5 in resisted left ankle dorsi/plantarflexion. Neurovascular: Radial pulses intact, 2+ bilaterally. Cap refill under 3 seconds in digits of lower extremities Special test: Negative logroll maneuver bilaterally. Negative Homans bilaterally. - Labs CBC & Chem 7: 03/21/24 05:49 03/21/24 05:49 Labs: Abnormal Lab Results - Last 24 Hours (Table) 03/20/24 03/20/24 03/21/24 Range/Units 05:36 11:52 05:49 RBC 3.12 L (3.80-5.40) m/uL Hgb 8.6 L (11.4-16.0) gm/dL Hct 27.1 L (34.0-46.0) % Potassium 2.9 L 3.2 L (3.5-5.1) mmol/L Chloride 108 H (98-107) mmol/L BUN 87 H (7-17) mg/dL Creatinine 2.15 H (0.52-1.04) mg/dL Glucose 161 H (74-99) mg/dL Calcium 6.8 L (8.4-10.2) mg/dL Magnesium 1.4 L (1.6-2.3) mg/dL Total Protein (6.3-8.2) g/dL Albumin (3.5-5.0) g/dL 03/21/24 Range/Units 05:49 RBC (3.80-5.40) m/uL Hgb (11.4-16.0) gm/dL Hct (34.0-46.0) % Potassium (3.5-5.1) mmol/L Chloride 109 H (98-107) mmol/L BUN 38 H (7-17) mg/dL Creatinine 1.23 H (0.52-1.04) mg/dL Glucose (74-99) mg/dL Calcium 7.5 L (8.4-10.2) mg/dL Magnesium (1.6-2.3) mg/dL Total Protein 5.4 L (6.3-8.2) g/dL Albumin 2.9 L (3.5-5.0) g/dL Microbiology - Last 24 Hours (Table) 03/19/24 14:33 Blood Culture - Preliminary Blood 03/19/24 10:45 Blood Culture - Preliminary Blood 03/19/24 10:45 Blood Culture - Preliminary Blood 03/19/24 10:20 Urine Culture - Final Urine,Voided Assessment and Plan Assessment: 1. Left knee pain; mild left knee osteoarthritis; quadriceps tendon strain Plan: 1. Left knee pain; mild left knee osteoarthritis; quadriceps tendon strain; gout, left great toe - X-ray of the left knee does demonstrate small suprapatellar effusion. Positive for mild osteoarthritis in the medial and patellofemoral compartments. Negative for any fractures. Negative for any dislocation. Patient does have a history of gout. Low concern for septic knee at this time. ESR and CRP elevated. I did discuss the findings of the imaging and exam with my attending, Dr. Townsend. At this time we are not recommending any emergent orthopedic surgical intervention. Due to patient's ongoing symptoms,history of gout and swelling in the left knee we move forward with aspiration of the left knee. Consent was obtained. We performed aspiration of left knee at bedside this morning and took cultures. Will await results from Gram stain, cell count, aerobic and anaerobic cultures, fungal cultures for proceeding with any potential orthopedic intervention. Patient may weight-bear as tolerated with walker and assistance as needed. we will continue conservative measures with the use of pain medication and PT/OT. MRI left knee canceled. we will continue to follow patient during her stay in the hospital. 2. Appreciate medical and pulmonology management 3. Pain management -Tylenol 4. DVT prophylaxis -heparin 5. GI prophylaxis recs 6. PT/OT - weight-bearing as tolerated with walker and assistance as needed 7. Encourage incentive spirometer use Time with Patient: Less than 30
--- NOTE | 2024-03-21 11:18 | P.PN ---
Subjective Progress Note Date: 03/21/24 Principal diagnosis: Acute renal failure This is a 78-year-old female, history of hypertension, and history of hypothyroidism, patient is primarily a patient of Dr. Choe, and she is today pH of Dr. Burton in the past. Patient came in for evaluation of left knee pain which she had for almost over a week. She had no symptoms of shortness of breath, no cough no wheezing no chest pain. No abdominal pain, workup in the ER revealed significant abnormal labs including acute renal failure with BUN as high as 174 and creatinine of 11.9. Patient was also noted to be hypotensive, she was given fluids and placed on norepinephrine at 0.03 mcg/kg/min. In the meantime the patient was noted to be acidotic and surprisingly did not have any symptoms of shortness of breath, patient was placed on a bicarb drip at 100 cc/h, she received a total of 4 L of fluids upon presentation, blood pressure remains soft, and she is requiring norepinephrine. Patient denies any previous kidney injury, but she was told in the past not to take any nonsteroidal anti- inflammatory drugs, patient has been taking mostly Tylenol. Has not taken any nonsteroidal anti-inflammatory drugs in the last 5 months. Normally the patient is on lisinopril at 20 mg daily, she is also on levothyroxine 88 mcg daily, patient is on atorvastatin 10 mg daily considering her hypotension and requirement for pressors, and spite of fluids given, I was asked to see the patient in consultation, and I did see her down in the ER, will recommend admission to the ICU, nephrology has already seen the patient on consultation, and patient will continue with IV fluids, she will receive empiric antibiotics, will arrange for x-rays of her left knee, and will arrange for orthopedic evaluation of the left knee pain. CT of the abdomen pelvis showed no evidence of hydronephrosis, no masses, he had a nonobstructing calculus 0.2 cm calcification within the mid left renal pelvis, chest x-ray showed slight prominence of the pulmonary vasculature otherwise unremarkable. No pleural effusion, no infiltrate ultrasound of abdomen and pelvis showed no acute process Patient was reevaluated today on 03/20/2024, patient remains in the ICU, remains on LR at 100 cc/h, she is off bicarb drip, still requiring norepinephrine at 0.03 mcg/kg/min. Her creatinine has gone down from 11.9 on admission down to 2.15 today. Patient continues to have good urine output 100 cc/h. She was seen by orthopedics for her left knee pain, MRI is pending. No plans to have arthrocentesis at this point, patient remains empirically on Zosyn. Considering the improvement dramatically with fluids and with norepinephrine, I believe the patient must have had acute tubular necrosis with nonoliguric renal failure secondary to hypotension. Again I strongly doubt sepsis but is not entirely ruled out, overall the patient is making significant improvement in the last 24 hours, and she continues to improve WBC count is 11.3 hemoglobin 9.5 potassium is 3.2 BUN is 87 creatinine 2.1, C-reactive protein is elevated at 13.3 her cortisol level is normal. Magnesium is 1.4 Patient was evaluated today on 03/21/2024, patient remains in the ICU, she has made a significant improvement mostly with hydration, empiric antibiotics, and at 1 point required norepinephrine which has been discontinued in the last 24 hours. Patient remains hemodynamically stable, does not seem to be in any distress, orthopedics have evaluated the patient, and she will have a steroid injection in her left knee, and she will have arthrocentesis and will send the fluid for cultures and for crystals. Orthopedics is convinced that the patient has mostly gouty arthritis. Not septic arthritis. Blood cultures remain negative so far. Urine cultures are negative hence may even consider stopping antibiotics in the next 24 hours. Assuming the Gram stain on the knee effusion comes back negative her renal function he has significantly improved, creatinine is down to 1.23 today, and she presented initially with a creatinine of above 11 Objective - Vital Signs Vital signs: Vital Signs Temp 98.6 F 03/21/24 04:00 Pulse 65 03/21/24 07:00 Resp 14 03/21/24 07:00 BP 98/55 03/21/24 07:00 Pulse Ox 96 03/21/24 07:00 FiO2 Intake & Output 03/20/24 03/21/24 03/21/24 18:59 06:59 18:59 Intake Total 589.612 1598 100 Output Total 1550 780 100 Balance -901.555 3464 0 Intake: IV 325 1200 100 Dextrose 5% in Water 1, 200 000 ml @ 100 mls/hr IV . [id number] SONIA with Sodium Bicarb (1 Meq/ml) 150 ml Rx#:[id number] Lactated Ringers 1,000 ml 1100 100 @ 100 mls/hr IV .Q10H SONIA Rx#:[id number] Piperacillin-Tazobactam 3 125 100 .375 gm In Sodium Chloride 0.9% 100 ml @ 25 mls/hr IVPB Q12HR [facility]ON[facility] Rx #:[id number] Intake, IV Titration 64.889 1200 Amount Lactated Ringers 1,000 ml 1200 @ 100 mls/hr IV .Q10H SONIA Rx#:[id number] Norepinephrine 4 mg In 64.889 Sodium Chloride 0.9% 250 ml @ 0.03 MCG/KG/MIN 7. 725 mls/hr IV .Q24H SONIA Rx#:[id number] Oral 400 Output: Urine 1550 780 100 Other: Voiding Method Indwelling Catheter Indwelling Catheter # Bowel Movements 1 1 - Exam General: The patient is awake and alert, in no distress, and does not appear acutely ill. On room air Skin: Skin is warm and dry and no rashes or lesions are noted. Eye: Pupils are equal, round and reactive to light, extra-ocular movements are intact; there is normal conjunctiva bilaterally. Ears, nose, mouth and throat: There are moist mucous membranes and no oral lesions. Neck: The neck is supple, there is no tenderness or JVD. Cardiovascular: There is a regular rate and rhythm. No murmur, rub or gallop is appreciated. Respiratory: Symmetrical chest expansion, clear breath sound bilaterally, no crackles rhonchi or wheezes Gastrointestinal: Soft, non-distended, non-tender abdomen without masses or organomegaly noted. There is no rebound or guarding present. Bowel sounds are unremarkable. Musculoskeletal: Slightly warm and tender to palpation. Neurological: Alert oriented x 3 no gross focal deficit Psychiatric: Normal mood, affect and no mental status examination. - Labs CBC & Chem 7: 03/21/24 05:49 03/21/24 05:49 Labs: Abnormal Lab Results - Last 24 Hours (Table) 03/20/24 03/20/24 03/21/24 Range/Units 05:36 11:52 05:49 RBC 3.12 L (3.80-5.40) m/uL Hgb 8.6 L (11.4-16.0) gm/dL Hct 27.1 L (34.0-46.0) % Potassium 2.9 L 3.2 L (3.5-5.1) mmol/L Chloride 108 H (98-107) mmol/L BUN 87 H (7-17) mg/dL Creatinine 2.15 H (0.52-1.04) mg/dL Glucose 161 H (74-99) mg/dL Calcium 6.8 L (8.4-10.2) mg/dL Magnesium 1.4 L (1.6-2.3) mg/dL Total Protein (6.3-8.2) g/dL Albumin (3.5-5.0) g/dL 03/21/24 Range/Units 05:49 RBC (3.80-5.40) m/uL Hgb (11.4-16.0) gm/dL Hct (34.0-46.0) % Potassium (3.5-5.1) mmol/L Chloride 109 H (98-107) mmol/L BUN 38 H (7-17) mg/dL Creatinine 1.23 H (0.52-1.04) mg/dL Glucose (74-99) mg/dL Calcium 7.5 L (8.4-10.2) mg/dL Magnesium (1.6-2.3) mg/dL Total Protein 5.4 L (6.3-8.2) g/dL Albumin 2.9 L (3.5-5.0) g/dL Microbiology - Last 24 Hours (Table) 03/19/24 14:33 Blood Culture - Preliminary Blood 03/19/24 10:45 Blood Culture - Preliminary Blood 03/19/24 10:45 Blood Culture - Preliminary Blood 03/19/24 10:20 Urine Culture - Final Urine,Voided Assessment and Plan Assessment: Impression: Acute renal failure,/acute kidney injury most likely secondary to acute tubular necrosis related to hypotension on presentation. Possible profound dehydration, improving and resolving with hydration, and temporary use of norepinephrine Left knee pain, most likely secondary to gouty arthritis, unlikely to have septic arthritis, cultures and Gram stains are pending from arthrocentesis done today by Ortho. If Gram stain is negative will discontinue antibiotics Acute anion gap metabolic acidosis secondary to acute renal failure. Resolved. History of benign essential hypertension Dyslipidemia History of hypothyroidism Recommendation: Transfer to medical surgical floor Continue IV fluids, discontinue norepinephrine and has been on for the last 24 hours Awaiting Gram stain from arthrocentesis of left knee and await crystals report, patient may have gouty arthritis. GI and DVT prophylaxis Consider stopping antibiotics in the next 24 hours Will continue to follow Time with Patient: Less than 30
[2024-03-21 11:28] LABS: Appearance,BF Hazy; Color,BF Yellow; RBC, Body Fluid 6 /uL
[2024-03-21 11:29] LABS: Nucleated Cells, Body Fluid 4 /uL
--- NOTE | 2024-03-21 11:55 | P.PN ---
Subjective Progress Note Date: 03/21/24 patient is a 78-year-old lady with past medical history significant for hypertension, hypothyroidism who presented to the ER for left knee pain. Patient stated that she was all right 1 week back when she developed left knee pain after one of her dogs jumped on it. Patient stated following that she has been hobbling on her left knee. Denies taking any NSAIDs or [id number] medications. There was no complaint of any fever or chills. Patient denies any shortness of breath. There is no complaint of nausea, vomiting abdominal pain. There is no complaint of lightheadedness or dizziness. Patient denies any altered bowel movements. Patient stated that she has been hydrating herself. Initial lab work done in the ER showed WBC 9.7, hemoglobin 12.4, platelet count 425, sodium 131, potassium 4.8, BUN 174, creatinine 1.94, glucose 105, phosphorus 21.3, magnesium 2.4, AST 14, ALT 14 UA negative for any infection EKG done in the ER showed heart rate of 67, no ST segment elevation or depress ion seen, no T-wave inversions seen. Chest x-ray done in the ER showed no definite pleural effusion. Clinical correlation recommended for early congestive heart failure CT abdomen pelvis done showed prominent loops of bowel within the pelvis. Small bowel loops are nondilated. Mild stricture could be considered Patient admitted to internal medicine service 03/20. Patient seen and examined.Blood work done this morning showed WBC 11.3. Hemoglobin 9.5, platelet count 397, sodium 142, potassium 2.9, BUN 87, creatinine 2.15, calcium 6.8. Potassium replacement ordered. Complaining of generalized body aches Complaining of left knee pain 03/21. Patient seen and examined. Blood work this morning WBC 9.6, hemoglobin 8.6, sodium 142, potassium 3.7, BUN 38, creatinine 1.23. Patient had arthrocentesis of left knee today, follow-up on results REVIEW OF SYSTEMS: CONSTITUTIONAL: No fever, no malaise,. CARDIOVASCULAR: No chest pain, no palpitations, no syncope. PULMONARY: No shortness of breath, no cough, GASTROINTESTINAL: No diarrhea, no nausea, no vomiting, no abdominal pain. NEUROLOGICAL: No headaches, no weakness, PHYSICAL EXAMINATION: GENERAL: The patient is alert and oriented x3, not in any acute distress. Well developed, well nourished. HEENT: Pupils are round and equally reacting to light. EOMI. No scleral icterus. No conjunctival pallor. Normocephalic, atraumatic. No pharyngeal erythema. No thyromegaly. CARDIOVASCULAR: S1 and S2 present. No murmurs, rubs, or gallops. PULMONARY: Chest is clear to auscultation, no wheezing or crackles. ABDOMEN: Soft, nontender, nondistended, normoactive bowel sounds. No palpable organomegaly. MUSCULOSKELETAL: No joint swelling or deformity. EXTREMITIES: No cyanosis, clubbing, or pedal edema. NEUROLOGICAL: Gross neurological examination did not reveal any focal deficits. SKIN: No rashes. Assessment and plan Acute kidney injury Anion gap metabolic acidosis Left knee pain Hypotension Hyperphosphatemia Hypothyroidism History of hypertension Monitor vital signs Monitor CBC Monitor CMP Continue telemetry monitoring Blood cultures have been negative S/p arthrocentesis of left knee 2D echo done showed LVEF of 55 to 60%, grade 1 diastolic dysfunction Avoid nephrotoxic agent Strict I's and O's, daily weights Continue IV fluids Continue IV Zosyn Nephrology following Orthopedic eval the patient, do not think there is infection of the left knee joint, recommend conservative management, ordered MRI of left knee, underwent arthrocentesis of left knee ICU following Labs and medication were reviewed.. Continue same treatment. Continue with symptomatic treatment. Resume home medication. Monitor labs and vitals. DVT and GI prophylaxis. Further recommendations as per clinical course of the patient Dictation was produced using [employer] dictation software. please excuse any grammatical, word or spelling errors. Objective - Vital Signs Vital signs: Vital Signs Temp 98.6 F 03/21/24 04:00 Pulse 65 03/21/24 07:00 Resp 14 03/21/24 07:00 BP 98/55 03/21/24 07:00 Pulse Ox 96 03/21/24 07:00 FiO2 Intake & Output 03/20/24 03/21/24 03/21/24 18:59 06:59 18:59 Intake Total 095.100 4406 100 Output Total 1550 780 100 Balance -747.453 9814 0 Intake: IV 325 1200 100 Dextrose 5% in Water 1, 200 000 ml @ 100 mls/hr IV . [id number] SONIA with Sodium Bicarb (1 Meq/ml) 150 ml Rx#:[id number] Lactated Ringers 1,000 ml 1100 100 @ 100 mls/hr IV .Q10H SONIA Rx#:[id number] Piperacillin-Tazobactam 3 125 100 .375 gm In Sodium Chloride 0.9% 100 ml @ 25 mls/hr IVPB Q12HR SONIA Rx #:[id number] Intake, IV Titration 64.889 1200 Amount Lactated Ringers 1,000 ml 1200 @ 100 mls/hr IV .Q10H SONIA Rx#:[id number] Norepinephrine 4 mg In 64.889 Sodium Chloride 0.9% 250 ml @ 0.03 MCG/KG/MIN 7. 725 mls/hr IV .Q24H SONIA Rx#:[id number] Oral 400 Output: Urine 1550 780 100 Other: Voiding Method Indwelling Catheter Indwelling Catheter # Bowel Movements 1 1 - Labs CBC & Chem 7: 03/21/24 05:49 03/21/24 05:49 Labs: Abnormal Lab Results - Last 24 Hours (Table) 03/20/24 03/20/24 03/21/24 Range/Units 05:36 11:52 05:49 RBC 3.12 L (3.80-5.40) m/uL Hgb 8.6 L (11.4-16.0) gm/dL Hct 27.1 L (34.0-46.0) % Potassium 2.9 L 3.2 L (3.5-5.1) mmol/L Chloride 108 H (98-107) mmol/L BUN 87 H (7-17) mg/dL Creatinine 2.15 H (0.52-1.04) mg/dL Glucose 161 H (74-99) mg/dL Calcium 6.8 L (8.4-10.2) mg/dL Magnesium 1.4 L (1.6-2.3) mg/dL Total Protein (6.3-8.2) g/dL Albumin (3.5-5.0) g/dL 03/21/24 Range/Units 05:49 RBC (3.80-5.40) m/uL Hgb (11.4-16.0) gm/dL Hct (34.0-46.0) % Potassium (3.5-5.1) mmol/L Chloride 109 H (98-107) mmol/L BUN 38 H (7-17) mg/dL Creatinine 1.23 H (0.52-1.04) mg/dL Glucose (74-99) mg/dL Calcium 7.5 L (8.4-10.2) mg/dL Magnesium (1.6-2.3) mg/dL Total Protein 5.4 L (6.3-8.2) g/dL Albumin 2.9 L (3.5-5.0) g/dL Microbiology - Last 24 Hours (Table) 03/19/24 14:33 Blood Culture - Preliminary Blood 03/19/24 10:45 Blood Culture - Preliminary Blood 03/19/24 10:45 Blood Culture - Preliminary Blood 03/19/24 10:20 Urine Culture - Final Urine,Voided
--- NOTE | 2024-03-21 12:34 | P.PN ---
Subjective Patient is seen for follow-up for acute kidney injury. Renal function has improved significantly. Patient has had good urine output. patient is off of pressors. Serum creatinine decreased to 1.2. Good urine output Potassium is 3.7 today. Serum cortisol is not low. Objective - Vital Signs Vital signs: Vital Signs Temp 98.2 F 03/21/24 08:00 Pulse 56 L 03/21/24 11:00 Resp 19 03/21/24 11:00 BP 101/59 03/21/24 11:00 Pulse Ox 97 03/21/24 11:00 FiO2 Intake & Output 03/20/24 03/21/24 03/21/24 18:59 06:59 18:59 Intake Total 752.304 9567 400 Output Total 1550 780 190 Balance -131.638 3673 210 Intake: IV 325 1200 200 Dextrose 5% in Water 1, 200 000 ml @ 100 mls/hr IV . [id number] [facility] with Sodium Bicarb (1 Meq/ml) 150 ml Rx#:[id number] Lactated Ringers 1,000 ml 1100 200 @ 100 mls/hr IV .Q10H [facility] Rx#:[id number] Piperacillin-Tazobactam 3 125 100 .375 gm In Sodium Chloride 0.9% 100 ml @ 25 mls/hr IVPB Q12HR [facility] Rx #:[id number] Intake, IV Titration 64.889 1200 200 Amount Lactated Ringers 1,000 ml 1200 @ 100 mls/hr IV .Q10H [facility] Rx#:[id number] Magnesium Sulfate-D5w Pmx 100 1 gm In Dextrose/Water 1 100ml.bag @ 100 mls/hr IVPB ONCE ONE Rx#: [id number] Norepinephrine 4 mg In 64.889 Sodium Chloride 0.9% 250 ml @ 0.03 MCG/KG/MIN 7. 725 mls/hr IV .Q24H [facility] Rx#:[id number] Piperacillin-Tazobactam 3 100 .375 gm In Sodium Chloride 0.9% 100 ml @ 25 mls/hr IVPB Q8HR [facility] Rx# :[id number] Oral 400 Output: Urine 1550 780 190 Other: Voiding Method Indwelling Catheter Indwelling Catheter Indwelling Catheter # Bowel Movements 1 1 - Exam patient is awake, comfortable, no acute distress. Alert oriented 3 Examination of the heart S1 and S2 Examination of the lungs bilateral breath sounds are heard Abdomen is soft nontender Examination of lower extremities shows no evidence of edema [employer] exam grossly intact - Labs CBC & Chem 7: 03/21/24 05:49 03/21/24 05:49 Labs: Abnormal Lab Results - Last 24 Hours (Table) 03/20/24 03/21/24 03/21/24 Range/Units 05:36 05:49 05:49 RBC 3.12 L (3.80-5.40) m/uL Hgb 8.6 L (11.4-16.0) gm/dL Hct 27.1 L (34.0-46.0) % Potassium 2.9 L (3.5-5.1) mmol/L Chloride 108 H 109 H (98-107) mmol/L BUN 87 H 38 H (7-17) mg/dL Creatinine 2.15 H 1.23 H (0.52-1.04) mg/dL Glucose 161 H (74-99) mg/dL Calcium 6.8 L 7.5 L (8.4-10.2) mg/dL Magnesium 1.4 L (1.6-2.3) mg/dL Total Protein 5.4 L (6.3-8.2) g/dL Albumin 2.9 L (3.5-5.0) g/dL Microbiology - Last 24 Hours (Table) 03/19/24 14:33 Blood Culture - Preliminary Blood 03/19/24 10:45 Blood Culture - Preliminary Blood 03/19/24 10:45 Blood Culture - Preliminary Blood 03/19/24 10:20 Urine Culture - Final Urine,Voided Assessment and Plan Assessment: 1. Acute kidney injury, ATN currently nonoliguric secondary to significant hypotension. No obstruction noted on ultrasound. UA shows trace protein and small blood and WBC 17. Urine eosinophils 3. Patient did admit that she started taking Prilosec about 3 months ago. Consider acute interstitial nephritis. renal function improved significantly with IV hydration and improvement in blood pressure therefore we will hold off on steroids. 2. Hypotension associated with volume depletion. Random cortisol level not low. 3. Left knee pain status post evaluation by orthopedic surgery. No intervention from surgical standpoint. Mild left knee osteoarthritis noted. 4. Severe anion gap metabolic acidosis secondary to acute kidney injury 5. Hyperphosphatemia associated with acute kidney injury 6. History of hypertension with blood pressure currently low and off of PITA inhibitor's. Plan: continue with IV hydration. increase midodrine Repeat labs in a.m. Check stool for occult blood as hemoglobin has dropped since admission
[2024-03-21 16:46] LABS: Synovial Fld Crystals None Seen (None Seen)
[2024-03-21] MEDS: PIPERACILLIN-TAZOBACTAM 3.375 GM in SODIUM CHLORIDE 0.9% 100 ML IVPB SCH (17:19)
[2024-03-21] MEDS: MIDODRINE 5 MG TAB PO SCH (18:00)
[2024-03-22] MEDS: POTASSIUM CHLORIDE ER 20 MEQ TAB.ER PO STA (08:50)
[2024-03-22 09:25] LABS: BUN/Creat Ratio 14.36 Ratio (12.00-20.00); Blood Urea Nitrogen 20.1 mg/dL (9.0-27.0); Calcium 8.7 mg/dL (8.7-10.3); Carbon Dioxide 23.3 mmol/L (21.6-31.8); Chloride 106 mmol/L (96-109); Glucose 88 mg/dL (70-110); Magnesium 1.7 mg/dL (1.5-2.4); Potassium 4.2 mmol/L (3.5-5.5); Sodium 144 mmol/L (135-145)
--- NOTE | 2024-03-22 11:28 | P.PN ---
Subjective Progress Note Date: 03/22/24 Principal diagnosis: Left knee pain; mild left knee osteoarthritis; quadriceps tendon strain Patient was seen at bedside this morning lying semirecumbent position about 5 N. Patient says her knee is feeling much better today as she is able to move it a little bit while resting in bed. Patient is looking forward to going home hopefully later today. Patient is hoping to work with PT/OT. Patient denies any other issues at this time. Objective - Vital Signs Vital signs: Vital Signs Temp 98.7 F 03/22/24 07:34 Pulse 56 L 03/22/24 07:34 Resp 17 03/22/24 07:34 BP 113/68 03/22/24 07:34 Pulse Ox 88 L 03/22/24 07:34 FiO2 Intake & Output 03/21/24 03/22/24 03/22/24 18:59 06:59 18:59 Intake Total 400 Output Total 290 450 Balance 110 -450 Intake: IV 200 Lactated Ringers 1,000 ml 200 @ 100 mls/hr IV .Q10H [facility] Rx#:[id number] Intake, IV Titration 200 Amount Magnesium Sulfate-D5w Pmx 100 1 gm In Dextrose/Water 1 100ml.bag @ 100 mls/hr IVPB ONCE ONE Rx#: [id number] Piperacillin-Tazobactam 3 100 .375 gm In Sodium Chloride 0.9% 100 ml @ 25 mls/hr IVPB Q8HR [facility] Rx# :[id number] Output: Urine 290 450 Other: Voiding Method Indwelling Catheter Indwelling Catheter # Bowel Movements 1 - Exam Inspection: Very small nonraised area of erythema measuring about 2 x 1 cm over the patella on the left lower extremity. Negative for any ecchymosis or open wounds or open fractures. Negative for any abrasions surrounding the left knee. Positive for very mild swelling in the suprapatellar region. left great toe erythematous and painful to touch over MTPJ and extending distally. Patient has gout history Sensation: Equal, symmetric, by intact throughout the upper and lower extremities. Palpation: Skin is lukewarm to the touch. Moderate to severe tenderness to patient directly over the left patella. Nontender to palpation throughout rest of left lower extremity exam. Nontender to patient over the medial and lateral compartments Range of motion: Patient has full range of motion throughout all joints and right lower extremity on exam. Patient holds left knee in about 10 degrees lacking full extension. Patient is unable to fully extend the left knee due to increasing pain and patient has pain when she attempts to flex the left knee. Patient does have good range of motion throughout left hip on exam. Patient is able to wiggle digits in bilateral lower extremities. On passive range of motion exam of left knee patient does have increased pain with flexion to about 45 degrees. Motor: 4/5 in all major motor groups in the right lower extremity. 3+/5 in resisted left hip flexion's extension and left knee flexion with extension. 4-/5 in resisted left ankle dorsi/plantarflexion. Neurovascular: Radial pulses intact, 2+ bilaterally. Cap refill under 3 seconds in digits of lower extremities Special test: Negative logroll maneuver bilaterally. Negative Homans bila terally. - Labs CBC & Chem 7: 03/21/24 05:49 03/22/24 05:57 Labs: Abnormal Lab Results - Last 24 Hours (Table) 03/21/24 03/21/24 03/22/24 Range/Units 02:30 05:49 05:57 Anion Gap 14.70 H (4.00-12.00) mmol/L Est GFR (CKD-EPI) 39 L (>=60) Procalcitonin 0.20 H (0.02-0.09) ng/mL Stool Occult Blood Positive H (Negative) Microbiology - Last 24 Hours (Table) 03/21/24 09:25 Gram Stain - Preliminary Knee - Left Body Fluid Culture - Preliminary 03/19/24 14:33 Blood Culture - Preliminary Blood 03/19/24 10:45 Blood Culture - Preliminary Blood 03/19/24 10:45 Blood Culture - Preliminary Blood Assessment and Plan Assessment: 1. Left knee pain; mild left knee osteoarthritis; quadriceps tendon strain Plan: 1. Left knee pain; mild left knee osteoarthritis; quadriceps tendon strain; gout, left great toe - X-ray of the left knee does demonstrate small suprapatellar effusion. Positive for mild osteoarthritis in the medial and patellofemoral compartments. Negative for any fractures. Negative for any dislocation. Patient does have a history of gout. Low concern for septic knee at this time. ESR and CRP elevated. I did discuss the findings of the imaging and exam with my attending, Dr. Townsend. At this time we are not recommending any emergent orthopedic surgical intervention. aspiration of left knee perffromfed yesterday at bedside. cultures taken and pending at this time. Patient may weight-bear as tolerated with walker and assistance as needed. we will continue conservative measures with the use of pain medication and PT/OT. Patient is stable from orthopedic standpointfor discharge from the hospital. Patient may follow-up in the outpatient setting with Dr. Townsend in 2 weeks for continued evaluation. Please do not hesitate to guidelines for any further questions. 2. Appreciate medical and pulmonology management 3. Pain management -Tylenol 4. DVT prophylaxis -heparin 5. GI prophylaxis recs 6. PT/OT - weight-bearing as tolerated with walker and assistance as needed 7. Encourage incentive spirometer use Time with Patient: Less than 30
--- NOTE | 2024-03-22 12:49 | P.DS ---
Providers Date of admission: 03/18/24 18:38 Expected date of discharge: 03/22/24 Attending physician: Ludy Gómez Consults: 03/18/24 18:38 Consult Physician Routine Consulting Provider: Karin Pineda Consult Reason/Comments: CKD Do you want consulting provider notified?: Yes 03/19/24 09:26 Consult Physician Routine Consulting Provider: Sejal Torres Consult Reason/Comments: [employer]; hypotension Do you want consulting provider notified?: Already Contacted 03/19/24 09:41 Consult Physician Routine Consulting Provider: Félix Townsend Consult Reason/Comments: Left knee pain, sepsis Do you want consulting provider notified?: Yes 03/22/24 10:29 Consult Physician Routine Consulting Provider: James Vieyra Consult Reason/Comments: Left knee infection Do you want consulting provider notified?: Yes Primary care physician: Car Choe Hospital Course: Discharge diagnoses; Acute kidney injury Anion gap metabolic acidosis Left knee pain Hypotension Hyperphosphatemia Hypothyroidism History of hypertension Hospital course; patient is a 78-year-old lady with past medical history significant for hypertension, hypothyroidism who presented to the ER for left knee pain. Patient stated that she was all right 1 week back when she developed left knee pain after one of her dogs jumped on it. Patient stated following that she has been hobbling on her left knee. Denies taking any NSAIDs or cexm-yau-arzfbfs medications. There was no complaint of any fever or chills. Patient denies any shortness of breath. There is no complaint of nausea, vomiting abdominal pain. There is no complaint of lightheadedness or dizziness. Patient denies any altered bowel movements. Patient stated that she has been hydrating herself. Initial lab work done in the ER showed WBC 9.7, hemoglobin 12.4, platelet count 425, sodium 131, potassium 4.8, BUN 174, creatinine 1.94, glucose 105, phosphorus 21.3, magnesium 2.4, AST 14, ALT 14 UA negative for any infection EKG done in the ER showed heart rate of 67, no ST segment elevation or depression seen, no T-wave inversions seen. Chest x-ray done in the ER showed no definite pleural effusion. Clinical correlation recommended for early congestive heart failure CT abdomen pelvis done showed prominent loops of bowel within the pelvis. Small bowel loops are nondilated. Mild stricture could be considered Patient admitted to internal medicine service 03/20. Patient seen and examined.Blood work done this morning showed WBC 11.3. Hemoglobin 9.5, platelet count 397, sodium 142, potassium 2.9, BUN 87, creatinine 2.15, calcium 6.8. Potassium replacement ordered. Complaining of generalized body aches Complaining of left knee pain 03/21. Patient seen and examined. Blood work this morning WBC 9.6, hemoglobin 8.6, sodium 142, potassium 3.7, BUN 38, creatinine 1.23. Patient had arthrocentesis of left knee today, follow-up on results 03/22. Patient seen and examined. Synovial fluid was negative for any crystals. Left knee pain has improved. Renal functions have normalized. Nephrology and pulmonology cleared the patient for discharge. Orthopedic recommend outpatient follow-up PHYSICAL EXAMINATION: GENERAL: The patient is alert and oriented x3, not in any acute distress. Well developed, well nourished. HEENT: Pupils are round and equally reacting to light. EOMI. No scleral icterus. No conjunctival pallor. Normocephalic, atraumatic. No pharyngeal erythema. No thyromegaly. CARDIOVASCULAR: S1 and S2 present. No murmurs, rubs, or gallops. PULMONARY: Chest is clear to auscultation, no wheezing or crackles. ABDOMEN: Soft, nontender, nondistended, normoactive bowel sounds. No palpable organomegaly. MUSCULOSKELETAL: No joint swelling or deformity. EXTREMITIES: No cyanosis, clubbing, or pedal edema. NEUROLOGICAL: Gross neurological examination did not reveal any focal deficits. SKIN: No rashes. Dictation was produced using [employer] dictation software. please excuse any grammatical, word or spelling errors. Patient Condition at Discharge: Good Plan - Discharge Summary New Discharge Prescriptions: Continue Atorvastatin [Lipitor] 10 mg PO DAILY Levothyroxine Sodium [Synthroid] 88 mcg PO DAILY Discontinued lisinopriL [Zestril] 20 mg PO DAILY Discharge Medication List Atorvastatin [Lipitor] 10 mg PO DAILY 08/23/21 [History] Levothyroxine Sodium [Synthroid] 88 mcg PO DAILY 03/18/24 [History] Follow up Appointment(s)/Referral(s): Car Choe MD [Primary Care Provider] - 1-2 days Karin Pineda MD [STAFF PHYSICIAN] - 1 Week Discharge Disposition: HOME SELF-CARE
[2024-03-22 13:24] VITALS: BP 129/58; PULSE 50; RESP 16; TEMP 97.7
--- NOTE | 2024-03-22 13:43 | P.PN ---
Subjective Progress Note Date: 03/22/24 This is a 78-year-old female, history of hypertension, and history of hypothyroidism, patient is primarily a patient of Dr. Choe, and she is today pH of Dr. Burton in the past. Patient came in for evaluation of left knee pain which she had for almost over a week. She had no symptoms of shortness of tracie ath, no cough no wheezing no chest pain. No abdominal pain, workup in the ER revealed significant abnormal labs including acute renal failure with BUN as high as 174 and creatinine of 11.9. Patient was also noted to be hypotensive, she was given fluids and placed on norepinephrine at 0.03 mcg/kg/min. In the meantime the patient was noted to be acidotic and surprisingly did not have any symptoms of shortness of breath, patient was placed on a bicarb drip at 100 cc/h, she received a total of 4 L of fluids upon presentation, blood pressure remains soft, and she is requiring norepinephrine. Patient denies any previous kidney injury, but she was told in the past not to take any nonsteroidal anti- inflammatory drugs, patient has been taking mostly Tylenol. Has not taken any nonsteroidal anti-inflammatory drugs in the last 5 months. Normally the patient is on lisinopril at 20 mg daily, she is also on levothyroxine 88 mcg daily, patient is on atorvastatin 10 mg daily considering her hypotension and requirement for pressors, and spite of fluids given, I was asked to see the patient in consultation, and I did see her down in the ER, will recommend admission to the ICU, nephrology has already seen the patient on consultation, and patient will continue with IV fluids, she will receive empiric antibiotics, will arrange for x-rays of her left knee, and will arrange for orthopedic evalua tion of the left knee pain. CT of the abdomen pelvis showed no evidence of hydronephrosis, no masses, he had a nonobstructing calculus 0.2 cm calcification within the mid left renal pelvis, chest x-ray showed slight prominence of the pulmonary vasculature otherwise unremarkable. No pleural effusion, no infiltrate ultrasound of abdomen and pelvis showed no acute process Patient was reevaluated today on 03/20/2024, patient remains in the ICU, remains on LR at 100 cc/h, she is off bicarb drip, still requiring norepinephrine at 0.03 mcg/kg/min. Her creatinine has gone down from 11.9 on admission down to 2.15 today. Patient continues to have good urine output 100 cc/h. She was seen by orthopedics for her left knee pain, MRI is pending. No plans to have arthrocentesis at this point, patient remains empirically on Zosyn. Considering the improvement dramatically with fluids and with norepinephrine, I believe the patient must have had acute tubular necrosis with nonoliguric renal failure secondary to hypotension. Again I strongly doubt sepsis but is not entirely ruled out, overall the patient is making significant improvement in the last 24 hours, and she continues to improve WBC count is 11.3 hemoglobin 9.5 potassium is 3.2 BUN is 87 creatinine 2.1, C-reactive protein is elevated at 13.3 her cortisol level is normal. Magnesium is 1.4 Patient was evaluated today on 03/21/2024, patient remains in the ICU, she has made a significant improvement mostly with hydration, empiric antibiotics, and at 1 point required norepinephrine which has been discontinued in the last 24 hours. Patient remains hemodynamically stable, does not seem to be in any distress, orthopedics have evaluated the patient, and she will have a steroid injection in her left knee, and she will have arthrocentesis and will send the fluid for cultures and for crystals. Orthopedics is convinced that the patient has mostly gouty arthritis. Not septic arthritis. Blood cultures remain negative so far. Urine cultures are negative hence may even consider stopping antibiotics in the next 24 hours. Assuming the Gram stain on the knee effusion comes back negative her renal function he has significantly improved, creatinine is down to 1.23 today, and she presented initially with a creatinine of above 11 The patient is seen today March 22, 2024 in follow-up on the regular medical floor. She is currently resting comfortably in bed. Awake and alert in no acute distress. She denies any shortness of breath, cough or congestion. She is maintaining good O2 saturation in the 90s on room air. Her left knee pain has improved post cortisone injection. Fluid sample revealed no evidence of synovial crystals. Sodium 144. Potassium 4.2. Bicarb 23. BUN 20. Creatinine 1.4. Glucose 88. Ulcers revealed no growth. Left knee fluid cultures reveal no growth thus far. Objective - Vital Signs Vital signs: Vital Signs Temp 97.7 F 03/22/24 11:44 Pulse 50 L 03/22/24 11:44 Resp 16 03/22/24 11:44 BP 129/58 03/22/24 11:44 Pulse Ox 94 L 03/22/24 12:31 FiO2 Intake & Output 03/21/24 03/22/24 03/22/24 18:59 06:59 18:59 Intake Total 400 Output Total 290 450 Balance 110 -450 Intake: IV 200 Lactated Ringers 1,000 ml 200 @ 50 mls/hr IV .Q20H [facility] Rx#:[id number] Intake, IV Titration 200 Amount Magnesium Sulfate-D5w Pmx 100 1 gm In Dextrose/Water 1 100ml.bag @ 100 mls/hr IVPB ONCE ONE Rx#: [id number] Piperacillin-Tazobactam 3 100 .375 gm In Sodium Chloride 0.9% 100 ml @ 25 mls/hr IVPB Q8HR [facility] Rx# :[id number] Output: Urine 290 450 Other: Voiding Method Indwelling Catheter Indwelling Catheter # Voids 1 # Bowel Movements 1 1 - Exam GENERAL EXAM: Alert, very pleasant 78-year-old female, on room air, fairly comfortable in no apparent distress. HEAD: Normocephalic. EYES: Normal reaction of pupils, equal size. NOSE: Clear with pink turbinates. THROAT: No erythema or exudates. NECK: No masses, no JVD. CHEST: No chest wall deformity. LUNGS: Equal air entry with no crackles, wheeze, rhonchi or dullness. CVS: S1 and S2 normal with no audible murmur, regular rhythm. ABDOMEN: No hepatosplenomegaly, normal bowel sounds, no guarding or rigidity. SPINE: No scoliosis or deformity SKIN: No rashes CENTRAL NERVOUS SYSTEM: No focal deficits, tone is normal in all 4 extremities. EXTREMITIES: Slight edema and tenderness over the left knee. No clubbing, no cyanosis. Peripheral pulses are intact. - Labs CBC & Chem 7: 03/21/24 05:49 03/22/24 05:57 Labs: Abnormal Lab Results - Last 24 Hours (Table) 03/21/24 03/22/24 Range/Units 02:30 05:57 Anion Gap 14.70 H (4.00-12.00) mmol/L Est GFR (CKD-EPI) 39 L (>=60) Stool Occult Blood Positive H (Negative) Microbiology - Last 24 Hours (Table) 03/21/24 09:25 Gram Stain - Preliminary Knee - Left Body Fluid Culture - Preliminary 03/19/24 14:33 Blood Culture - Preliminary Blood 03/19/24 10:45 Blood Culture - Preliminary Blood 03/19/24 10:45 Blood Culture - Preliminary Blood Assessment and Plan Assessment: Acute renal failure,/acute kidney injury most likely secondary to acute tubular necrosis related to hypotension on presentation. Possible profound dehydration, improving and resolving with hydration, and temporary use of norepinephrine Left knee pain, most likely secondary to gouty arthritis, unlikely to have septic arthritis, cultures and Gram stains are pending from arthrocentesis done today by Ortho. Gram stain is negative will discontinue antibiotics Acute anion gap metabolic acidosis secondary to acute renal failure. Resolved. History of benign essential hypertension Dyslipidemia Hypothyroidism Plan: The patient was seen and evaluated Stable and on room air Labs and medications reviewed Cleared for discharge from the pulmonary standpoint Plan is to follow-up with orthopedics in the outpatient setting I have personally seen and examined the patient, performed the documentation and the assessment and plan as written. Number of minutes spent on the visit: 10.
--- NOTE | 2024-03-22 18:54 | P.PN ---
Subjective Patient is seen for follow-up for acute kidney injury. Renal function has improved significantly. Patient has had good urine output. patient is off of pressors. Serum creatinine decreased to 1.2. Good urine output Serum cortisol is not low. Objective - Vital Signs Vital signs: Vital Signs Temp 97.7 F 03/22/24 11:44 Pulse 50 L 03/22/24 11:44 Resp 16 03/22/24 11:44 BP 129/58 03/22/24 11:44 Pulse Ox 94 L 03/22/24 12:31 FiO2 Intake & Output 03/21/24 03/22/24 03/22/24 18:59 06:59 18:59 Intake Total 400 Output Total 290 450 Balance 110 -450 Intake: IV 200 Lactated Ringers 1,000 ml 200 @ 50 mls/hr IV .Q20H [facility] Rx#:[id number] Intake, IV Titration 200 Amount Magnesium Sulfate-D5w Pmx 100 1 gm In Dextrose/Water 1 100ml.bag @ 100 mls/hr IVPB ONCE ONE Rx#: [id number] Piperacillin-Tazobactam 3 100 .375 gm In Sodium Chloride 0.9% 100 ml @ 25 mls/hr IVPB Q8HR [facility] Rx# :[id number] Output: Urine 290 450 Other: Voiding Method Indwelling Catheter Indwelling Catheter # Voids 1 # Bowel Movements 1 1 - Exam patient is awake, comfortable, no acute distress. Alert oriented 3 Examination of the heart S1 and S2 Examination of the lungs bilateral breath sounds are heard Abdomen is soft nontender Examination of lower extremities shows no evidence of edema [employer] exam grossly intact - Labs CBC & Chem 7: 03/21/24 05:49 03/22/24 05:57 Labs: Abnormal Lab Results - Last 24 Hours (Table) 03/21/24 03/22/24 Range/Units 02:30 05:57 Anion Gap 14.70 H (4.00-12.00) mmol/L Est GFR (CKD-EPI) 39 L (>=60) Stool Occult Blood Positive H (Negative) Microbiology - Last 24 Hours (Table) 03/19/24 10:45 Blood Culture - Preliminary Blood 03/19/24 10:45 Blood Culture - Preliminary Blood 03/21/24 09:25 Gram Stain - Preliminary Knee - Left Body Fluid Culture - Preliminary 03/19/24 14:33 Blood Culture - Preliminary Blood Assessment and Plan Assessment: 1. Acute kidney injury, ATN currently nonoliguric secondary to significant hypotension. No obstruction noted on ultrasound. UA shows trace protein and small blood and WBC 17. Urine eosinophils 3. Patient did admit that she started taking Prilosec about 3 months ago. Consider acute interstitial nephritis. renal function improved significantly with IV hydration and improvement in blood pressure therefore we will hold off on steroids. 2. Hypotension associated with volume depletion. Random cortisol level not low. 3. Left knee pain status post evaluation by orthopedic surgery. No intervention from surgical standpoint. Mild left knee osteoarthritis noted. 4. Severe anion gap metabolic acidosis secondary to acute kidney injury 5. Hyperphosphatemia associated with acute kidney injury 6. History of hypertension with blood pressure currently low and off of PITA inhibitor's. Plan: Patient can be discharged from nephrology standpoint. Can hold midodrine if no further hypotension noted.
--- NOTE | 2024-03-27 10:46 | CDI ---
Documentation Clarification Form Date: 03/27/2024 09:57:17 AM From: Netta Mendez RN, CCDS Phone: [phone] Admit Date: 03/18/2024 06:38:00 PM Patient Name: Eli Heller Visit Number: [id number] Discharge Date: 03/22/2024 03:35:00 PM ATTENTION: The Clinical Documentation Specialists (CDI) and [facility] Coding Staff appreciate your assistance in clarifying documentation. Please respond to the clarification below the line at the bottom and electronically sign. The CDI & [facility] Coding staff will review the response and follow-up if needed. Please note: Queries are made part of the Legal Health Record. If you have any questions, please contact the author of this message via ITS. Dr. Michael Post The patient had significant hypotension and required Levophed infusion. Based on this information and the findings below, is there an additional diagnosis that is clinically appropriate for this patient? Patient history/risk factors: HTN and thyroid disorder. Presented with SOB, abdominal pain and swelling to lower extremity. Elevated Cr level, patient admitted with acute renal failure and significant hypotension. Clinical Indicators: H&P: "Acute kidney injury. Metabolic acidosis. Hypotension. ICU consulted for critical care management." 03/19 Pulmonary consult: "Acute kidney injury most likely secondary to acute tubular necrosis related to hypotension on presentation. Admit patient to ICU. Continue IV fluids and continue Norepinephrine." 03/19 Nephrology consult: "She has received about 4 L of fluid boluses and because of continued hypotension, patient has been transferred to the ICU. Acute kidney injury, ATN. Currently nonoliguric, secondary to significant hypotension. Hypotension associated with volume depletion." 03/18-03/22 Labs: Cr 11.94-6.26-2.15-1.23 03/18 BP: 81/41-100/63 03/19 BP: 79/22-114/39 03/20 BP: 81/57-125/51 03/21 BP: 79/41-110/53 Treatment: ICU monitoring; IV Levophed titrated 03/19-03/21; 0.9 NS IV bolus x4 liters 03/18-03/19 Is there an additional diagnosis that is clinically appropriate for this patient? [ x ] Hypovolemic shock [ ] Other Shock, please specify [ ] No additional diagnosis/Not clinically significant [ ] Unable to determine [ ] Other, please specify MTDD
== END 2024-03-22 15:35 | disposition home or self-care (01) | DRG 682 ==
LOC: EC 15:22 → 5NMEDONC 18:38 → 3SCARD 20:11 → 2SICU 03-19 08:52 → 5NMEDONC 03-21 16:11
PROVIDERS: ADMIT Hospitalist; ATTEND Hospitalist
PROC: 3E033XZ Introduction of Vasopressor into Peripheral Vein, Percutaneous Approach (ICD-10-PCS; 2024-03-19)
PROC: 3E033XZ Introduction of Vasopressor into Peripheral Vein, Percutaneous Approach (ICD-10-PCS; 2024-03-19)
PROC: 0S9D3ZX Drainage of Left Knee Joint, Percutaneous Approach, Diagnostic (ICD-10-PCS; principal; 2024-03-21)
PROC: 3E0U33Z Introduction of Anti-inflammatory into Joints, Percutaneous Approach (ICD-10-PCS; principal; 2024-03-21)
DX: N17.0 Acute kidney failure with tubular necrosis (principal); R57.1 Hypovolemic shock; E87.20 Acidosis, unspecified; I95.9 Hypotension, unspecified; E83.39 Other disorders of phosphorus metabolism; I10 Essential (primary) hypertension; E03.9 Hypothyroidism, unspecified; M10.9 Gout, unspecified; S76.119A Strain of unspecified quadriceps muscle, fascia and tendon, initial encounter; M17.12 Unilateral primary osteoarthritis, left knee; E86.9 Volume depletion, unspecified; E86.0 Dehydration; E78.5 Hyperlipidemia, unspecified; R26.2 Difficulty in walking, not elsewhere classified; Z79.890 Hormone replacement therapy; Z79.899 Other long term (current) drug therapy; Z87.891 Personal history of nicotine dependence; W54.1XXA Struck by dog, initial encounter
CPT/HCPCS: 36415; 51702; 71046; 74176; 76770; 80048; 80053; 80306; 81001; 82272; 82533; 82570; 83605; 83735; 83930; 83935; 84100; 84132; 84145; 84300; 84484; 85025; 85652; 86140; 87040; 87070; 87075; 87086; 87205; 87324; 89050; 89060; 93005; 93306; 96361; 96365; 96366; 96368; 99285